=== PATIENT | female | born 1985 | race Caucasian/White ===

== ENCOUNTER 2022-06-17 01:30 | Inpatient (IN) ==
[2022-06-17] MEDS ORDERED: ONDANSETRON INJ 2 MG/ML 2 ML VIAL ONE (01:35)
[2022-06-17] MEDS ORDERED: SODIUM CHLORIDE 0.9% 1000ML 1,000 ML IV ONE (02:33)
[2022-06-17] MEDS ORDERED: PANTOprazole 40 MG in SYRINGE 0 ML IV ONE (02:33)
[2022-06-17] MEDS ORDERED: KETOROLAC 30 MG/ML VIAL IV ONE (02:33)
[2022-06-17 02:50] LABS: Basophils # (auto) 0.04 K/uL (0-0.2); Basophils % (auto) 0.7 %; Eosinophils # (auto) 0.03 K/uL (0-0.50); Eosinophils % (auto) 0.5 %; Hematocrit (blood only) 36.2 % (34.1-44.9); Hemoglobin 12.8 g/dl (12.0-16.0); Immature Granulocytes # (auto) 0.04 K/uL (0.00-0.02); Immature Granulocytes % (auto) 0.7 %; Lymphocytes # (auto) 0.87 K/uL (1.2-3.4); Lymphocytes % (auto) 15.1 %; Mean Corpuscular Hemoglobin 30.3 pg (25.0-34.0); Mean Corpuscular Hgb Conc 35.4 g/dL (32.0-36.0); Mean Corpuscular Volume 85.6 fL (80.0-100.0); Mean Platelet Volume 9.6 fL (9.4-12.3); Monocytes # (auto) 0.43 K/uL (0.24-0.82); Monocytes % (auto) 7.5 %; Neutrophils # (auto) 4.36 K/uL (1.4-6.5); Neutrophils % (auto) 75.5 %; Platelet Count 152 K/uL (130-400); RDW Coefficient of Variation 19.8 % (11.5-14.5); Red Blood Count 4.23 M/uL (3.93-5.22); White Blood Count 5.77 K/ul (4.8-10.8)
[2022-06-17 02:51] LABS: Appearance Urine Clear (Clear); Bilirubin Urine Negative (Negative); Blood Urine Negative (Negative); Color Urine Yellow; Glucose Urine UA Negative (Negative); Ketones Urine Negative (Negative); Leukocyte Esterase Urine Negative (Negative); Nitrite Urine Negative (Negative); Protein Urine Negative (Negative); Specific Gravity Urine 1.001 (1.000-1.030); Urobilinogen Urine Negative (Negative); pH Urine 5.5 (4.5-7.5)
[2022-06-17 03:06] LABS: Albumin Globulin Ratio 1.1 (0.9-2); Albumin Level 3.3 gm/dl (3.4-5.0); BUN Creatinine Ratio 6.8 (10-20); Bilirubin,Total 1.6 mg/dl (0.2-1.0); Calcium 8.7 mg/dl (8.5-10.1); Creatinine Clr Calc Pharmacy 182.3 ml/min; Est GFR (African American) 148.4 ml/min; Est GFR (Non-African American) 128.1 ml/min; Potassium 3.3 mmol/L (3.5-5.1); Total Protein 6.3 gm/dl (6.0-8.3)
[2022-06-17 03:26] LABS: Influenza A virus by PCR Negative (Neg); Influenza B virus by PCR Negative (Neg); RSV by PCR Negative (Neg); SARS CoV2 RNA(COVID-19) Ceph NEGATIVE (Negative)
[2022-06-17] MEDS ORDERED: LORazepam 1 MG TAB PO PRN ×3 (05:11)
[2022-06-17] MEDS ORDERED: Ativan PO Alcohol Withdrawal--Active Protocol PO PRN (05:11)
--- NOTE | 2022-06-17 05:28 | History & Physical Report ---
Date of Service June 17, 2022 Assessment & Plan (1) Weight loss, abnormal: Plan: Patient reports 15 pound weight loss over the past couple months Likely associated with tobacco abuse and alcohol abuse Will jenkins CT chest, abdomen and pelvis to look for other etiologies (2) Hematemesis: Plan: Patient reports coughing up fresh blood this morning N.p.o. Protonix 40mg IV daily twice daily Consult gastroenterology N.p.o. status (3) Abdominal pain, left lower quadrant: Plan: N.p.o. status Further assessment with CT scan abdomen and pelvis (4) Alcohol abuse: Plan: AWSS protocol (5) Hyponatremia: Plan: Sodium 123 upon admission Patient admits to 8 beers daily, but reports in addition to having excessive alcohol is also had excessive water intake Adding a serum osmolality and urine osmolality to laboratories in the ED Placed on NSS + KCl 20 mEq at 40 mils per hour Sodium chloride 1 tablet p.o. twice daily Consult nephrology (6) Pancreatitis: Plan: Lipase [address] abdomen pelvis Follow serial lipase (7) Tobacco abuse disorder: Plan: Tobacco cessation counseling Patient likely has an early bronchitis Albuterol HFA 2 puffs 4 times daily and every 2 hours as needed (8) Hypothyroid: Plan: Continue levothyroxine 112 mcg daily (9) Hypokalemia: Plan: KCl 10 mEq IV x2 Repeat laboratories in a.m. (10) Abnormal LFTs: Plan: Previous CT as noted severe hepatic steatosis and hepatomegaly Follow serial laboratories Adding coags to current laboratories Calculate meld score when all labs are back (11) Anxiety: History of Present Illness Chief Complaint: The patient presents to the emergency department complaining of left lower quadrant pain, decreased oral intake over the past week. She reports to call of the emergency department today because she brought up some blood when she vomited last time. She has not noticed any blood in her stool or urine. She admits to drinking 8 beers a day, and smokes 1 pack of cigarettes daily. She has a history of alcohol abuse. Primary Care Provider: Khadra Vallejo MD The patient is a 37-year-old female with a past medical history including tobacco abuse, alcohol abuse, allergic rhinitis, genital warts, hypothyroidism, anxiety and fatigue. She presents to the emergency department as noted above. She was seen at the emergency department on 05/15/2022 for similar symptoms of left lower quadrant pain, with work-up including a CT scan of the abdomen pelvis with IV contrast, which showed question of cystitis, severe hepatic steatosis, hepatomegaly, L5-S1 degenerative disc disease. She reports that she has been drinking large amounts of water because it helps to make her stomach feel somewhat better. She also reports a 15 pound weight loss over the past few months Significant abnormal laboratories: Sodium 123, potassium 3.3, glucose 105, hemoglobin 12.8, hematocrit 36.2, AST 318, ALT 132, alk phos 328, total bilirubin 1.6, lipase 211. Allergies Allergy/AdvReac Type Severity Reaction Status Date / Time adhesive Allergy Intermediate SKIN Verified 05/15/22 19:32 BLISTER, TORN OFF SKIN WHEN REMOVED Home Medications Medication Instructions Recorded Confirmed Type albuterol sulfate 90 mcg/actuation 2 inh inhalation Q4H PRN shortness 10/16/21 06/17/22 Rx aerosol inhaler of breath or wheezing #6.7 grams levothyroxine 112 mcg tablet 112 mcg PO DAILY #90 tabs 02/22/22 06/17/22 Rx ibuprofen 600 mg tablet 600 mg PO Q8H PRN Pain 05/15/22 06/17/22 History ondansetron 4 mg disintegrating 4 mg PO Q8H PRN nausea and 05/15/22 06/17/22 Rx tablet vomiting #30 tabs Past Med/Surg History Medical History (Updated 06/17/22 @ 05:44 by Edgar Hopkins MD) Anxiety Fatigue H/O ETOH abuse Hypothyroid Thyroid condition Tobacco abuse disorder Surgical History No pertinent past surgical history Family History Father Heart disease Colorectal cancer Myocardial infarction Denies family history of Ovarian cancer Prostate cancer Breast cancer Social History Smoking Status: Current every day smoker Tobacco Type: Cigarettes packs per day: 1; Hx Alcohol Use: Yes Hx Substance Use: No Preferred Language: [place] Visual Impairment: No Limitations Hearing Ability: Normal 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 Beliefs That Will Affect Care: None marital status: Single Current Living Situation: Significant Other current occupational status: employed Feels Safe at Home: Yes Diet Comment: regular caffeine: Yes during the past year weight has: remained stable Dental Care, Regularly: No Physical Activity Frequency: 5-6 Times per Week Physical Activity Frequency Comment: active job Seatbelt Use: always Sunscreen Use: Yes Review of Systems Review of Systems: The patient denies chest pain, palpitations, lower extremity swelling, fevers, chills, sweats, blood in urine or stool, dysuria, urinary frequency or urgency, lightheadedness, dizziness, headache, memory loss, loss of consciousness, rash, Imbalance, focal weakness, numbness or tingling in arms or legs, generalized arthralgias or myalgias, back or neck pain, or night sweats. The review of systems is otherwise negative other than for that already noted above, and at least 10 systems have been reviewed. Physical Exam Physical Exam: The patient is awake, alert and oriented 3, normocephalic and atraumatic, lying in bed and in no acute distress. HEENT--PERRL, EOMI, mucous membranes and oropharynx dry. Neck--supple. No JVD. No bruits. Thyroid normal, trachea midline, no adenopathy. Heart--normal S1 and S2. No murmurs, rubs or gallops. Lungs--coarse breath sounds with wheezes bilaterally. No respiratory distress, no accessory muscle use. Abdomen--normal bowel sounds and soft. Extremities--no cyanosis or clubbing. No edema. There are good distal pulses b/l. Dermatologic--normal skin turgor, normal color, no abnormal lymph nodes, no rash. Neurologic--cranial nerves II through XII grossly intact. Rheumatologic--normal range of motion. Psychiatric--normal affect. Results & Data Results & Data ([facility] [place]) Vital Signs (Past 12 Hours) Vital Signs Temp Pulse Pulse Resp BP BP Pulse Ox 06/17/22 03:37 88 22 104/59 L 96 06/17/22 01:38 36.7 C 82 24 126/78 97 O2 Del Method 06/17/22 03:37 Room Air 06/17/22 01:38 Room Air Laboratory Results Laboratory Results WBC 5.77 K/ul (4.8-10.8) 06/17/22 01:45 RBC 4.23 M/uL (3.93-5.22) 06/17/22 01:45 Hgb 12.8 g/dl (12.0-16.0) 06/17/22 01:45 Hct 36.2 % (34.1-44.9) 06/17/22 01:45 MCV 85.6 fL (80.0-100.0) 06/17/22 01:45 MCH 30.3 pg (25.0-34.0) 06/17/22 01:45 MCHC 35.4 g/dL (32.0-36.0) 06/17/22 01:45 RDW Std Deviation 62.0 fL (36.4-46.3) H 06/17/22 01:45 RDW Coeff of Nico 19.8 % (11.5-14.5) H 06/17/22 01:45 Plt Count 152 K/uL (130-400) 06/17/22 01:45 MPV 9.6 fL (9.4-12.3) 06/17/22 01:45 Immature Gran % (Auto) 0.7 % 06/17/22 01:45 Neut % (Auto) 75.5 % 06/17/22 01:45 Lymph % (Auto) 15.1 % 06/17/22 01:45 [place]away % (Auto) 7.5 % 06/17/22 01:45 Eos % (Auto) 0.5 % 06/17/22 01:45 Baso % (Auto) 0.7 % 06/17/22 01:45 Neut # (Auto) 4.36 K/uL (1.4-6.5) 06/17/22 01:45 Lymph # (Auto) 0.87 K/uL (1.2-3.4) L 06/17/22 01:45 Callaway # (Auto) 0.43 K/uL (0.24-0.82) 06/17/22 01:45 Eos # (Auto) 0.03 K/uL (0-0.50) 06/17/22 01:45 Baso # (Auto) 0.04 K/uL (0-0.2) 06/17/22 01:45 Immature Gran # (Auto) 0.04 K/uL (0.00-0.02) H 06/17/22 01:45 Sodium 123 mmol/L (136-145) L 06/17/22 01:45 Potassium 3.3 mmol/L (3.5-5.1) L 06/17/22 01:45 Chloride 88 mmol/L (98-107) L 06/17/22 01:45 Carbon Dioxide 20 mmol/L (21-32) L 06/17/22 01:45 Anion Gap 15 (3-11) H 06/17/22 01:45 BUN 3 mg/dl (6-23) L 06/17/22 01:45 Creatinine 0.44 mg/dl (0.6-1.2) L 06/17/22 01:45 Est Cr Clr Drug Dosing 182.3 ml/min 06/17/22 01:45 Est GFR ( Amer) 148.4 ml/min 06/17/22 01:45 Est GFR (Non-Af Amer) 128.1 ml/min 06/17/22 01:45 BUN/Creatinine Ratio 6.8 (10-20) L 06/17/22 01:45 Glucose 105 mg/dl (70-99(Fasting)) H 06/17/22 01:45 Calcium 8.7 mg/dl (8.5-10.1) 06/17/22 01:45 Total Bilirubin 1.6 mg/dl (0.2-1.0) H 06/17/22 01:45 AST 318 U/L (13-39) H 06/17/22 01:45 ALT 132 U/L (7-52) H 06/17/22 01:45 Alkaline Phosphatase 328 U/L (34-104) H 06/17/22 01:45 Total Protein 6.3 gm/dl (6.0-8.3) 06/17/22 01:45 Albumin 3.3 gm/dl (3.4-5.0) L 06/17/22 01:45 Globulin 3.0 gm/dl (2.5-4.0) 06/17/22 01:45 Albumin/Globulin Ratio 1.1 (0.9-2) 06/17/22 01:45 Lipase 211 U/L (11-82) H 06/17/22 01:45 TSH 1.926 uIu/ml (0.300-4.500) 06/17/22 01:45 Urine Color Yellow 06/17/22 02:40 Urine Appearance Clear (Clear) 06/17/22 02:40 Urine pH 5.5 (4.5-7.5) 06/17/22 02:40 Ur Specific Drury 1.001 (1.000-1.030) 06/17/22 02:40 Urine Protein Negative (Negative) 06/17/22 02:40 Urine Glucose (UA) Negative (Negative) 06/17/22 02:40 Urine Ketones Negative (Negative) 06/17/22 02:40 Urine Blood Negative (Negative) 06/17/22 02:40 Urine Nitrite Negative (Negative) 06/17/22 02:40 Urine Bilirubin Negative (Negative) 06/17/22 02:40 Urine Urobilinogen Negative (Negative) 06/17/22 02:40 Ur Leukocyte Esterase Negative (Negative) 06/17/22 02:40 Ethyl Alcohol mg/dL 23.4 mg/dl (<10.0) H 06/17/22 01:45 SARS-CoV-2 (PCR) NEGATIVE (Negative) 06/17/22 02:40 Influenza Type A (PCR) Negative (Neg) 06/17/22 02:40 Influenza Type B (PCR) Negative (Neg) 06/17/22 02:40 RSV (RT-PCR) Negative (Neg) 06/17/22 02:40 Code Status & VTE Plan Code Status Full code VTE Prophylaxis Plan VTE Prophylaxis will be ordered: Yes (1) Hypothyroid Hypothyroidism type: unspecified Qualified Code(s): E03.9 - Hypothyroidism, unspecified
--- NOTE | 2022-06-17 05:49 | Billing Data ---
Date of Service June 17, 2022 Coding Level of Care Code 77462 Initial Inpt Care Lvl 3
[2022-06-17] MEDS ORDERED: POTASSIUM CHLORIDE / WTR 10 MEQ/100 ML PLCT IV ONE (05:52)
[2022-06-17] MEDS ORDERED: ALBUTEROL HFA 8 GM INHALER INH PRN (05:56)
[2022-06-17 05:59] LABS: INR 1.1 (0.9-1.1); Partial Thromboplastin Ratio 1.2; Partial Thromboplastin Time 33.3 Seconds (21.0-31.0); Prothrombin Time 11.5 Seconds (9.0-12.0)
[2022-06-17] MEDS ORDERED: NSS + 20MEQ KCL 20 MEQ/1,000 ML BAG IV SCH (06:15)
[2022-06-17 06:59] LABS: BUN Creatinine Ratio 5.7 (10-20); Calcium 8.7 mg/dl (8.5-10.1); Creatinine Clr Calc Pharmacy 151.3 ml/min; Est GFR (African American) 139.6 ml/min; Est GFR (Non-African American) 120.4 ml/min; Potassium 3.6 mmol/L (3.5-5.1)
--- NOTE | 2022-06-17 07:14 | CT Scan Report ---
CT OF THE CHEST WITHOUT IV CONTRAST CLINICAL HISTORY: hypoxia, weight loss COMPARISON STUDY: Chest radiograph January 23, 2022. TECHNIQUE: Axial images of the chest were obtained without IV contrast. Images were reviewed in the axial, sagittal, and coronal planes. IV contrast was not administered for this examination. Automat ed exposure control was utilized for the study. A dose lowering technique was utilized adhering to t he principles of ALARA. FINDINGS: No enlarged axillary, mediastinal or hilar lymph nodes are present. The size of the heart is normal. There is no pericardial effusion. No pneumothorax or pleural effusion is present. There is mild multifocal mucus plugging within the lungs. An 8 mm groundglass nodular opacity within the left lower lobe on image 220 of 296 is noted. There is minimal groundglass opacity within the right middl e lobe. No consolidation is identified. Bony thorax is unremarkable. Hepatic steatosis is noted. The CT of the abdomen and pelvis will be reported separately. IMPRESSION: 1. No consolidation. 2. 8 mm groundglass nodular opacity within the left lower lobe and minimal ground glass opacity withi n the right middle lobe. This likely reflects atelectasis. An infectious process could appear similar although is considered less likely. A follow-up chest CT in 3 months to ensure resolution is recomme nded. 3. Mild mucus plugging within the lungs. 4. Hepatic steatosis. ACT 112: Negative or not required by law. Electronically signed by: Jose Alfredo Smith M.D. 06/17/2022 7:12 AM
--- NOTE | 2022-06-17 07:19 | CT Scan Report ---
CT SCAN OF THE ABDOMEN AND PELVIS WITHOUT IV CONTRAST CLINICAL HISTORY: Left lower quadrant abdominal pain. Weight loss. COMPARISON STUDY: Abdominal CT dated 05/15/2022. TECHNIQUE: CT scan of the abdomen and pelvis is performed from the lung bases to the proximal femora. Images are reviewed in the axial, sagittal, and coronal planes. IV contrast was not administered for this examination as per the referring clinician. Note that the examination was performed in signific antly suboptimal fashion without oral and IV contrast. A dose lowering technique was utilized adherin g to the principles of ALARA. CT DOSE: 470.37 mGy.cm FINDINGS: Lung bases: The heart is normal in size and without pericardial effusion. The lung bases are clear. Liver: The unenhanced liver is enlarged, measuring 21.2 cm in length. The liver demonstrates diffusel y diminished attenuation indicating severe steatosis. There is no intrahepatic biliary ductal dilatat ion. Gallbladder: Surgically absent and clips in the gallbladder fossa. Spleen: Normal in size and attenuation. Pancreas: Unremarkable. Adrenal glands: Unremarkable. Kidneys: The unenhanced kidneys are normal in size and without hydronephrosis. There are no renal raudel culi identified. There is no evidence of contour deforming renal mass lesion. A retroaortic left jhony l vein is incidentally noted. Abdominal vasculature: The abdominal aorta is normal in course and caliber noting mild to moderate at herosclerotic calcification. Bowel: Submucosal fat deposition is seen throughout the colon. This is nonspecific but has been descr ibed in the setting of chronic inflammation. There is mild wall thickening of the distal descending c olon and proximal sigmoid. No bowel obstruction is seen. The appendix is well-visualized and normal. Peritoneum: There is no intraperitoneal free air or abdominal ascites. There is a fat-containing umbi lical hernia. Lymphadenopathy: None. Pelvic viscera: The bladder wall appears thickened. The uterus and adnexa are normal as visualized. Skeletal structures: No lytic or blastic lesions are seen. IMPRESSION: 1. Suboptimal examination without oral and IV contrast. 2. The bladder wall appears thickened. Correlate with clinical findings and urinalysis. 3. Question mild wall thickening of the distal left colon. Correlate clinically for evidence of a non specific colitis. 4. Hepatomegaly and severe steatosis. 5. Additional findings as above. ACT 112: Negative or not required by law. Electronically signed by: Trey Dhaliwal M.D. 06/17/2022 7:18 AM
--- NOTE | 2022-06-17 07:32 | Emergency Department Note ---
Impression & Plan Acute hyponatremia, Acute epigastric pain Admit to the [facility] ED Provider Note NAME: AZALEA COBOS AGE: 37 SEX: F ARRIVES VIA: Ambulance INFORMANT: Patient ED PROVIDER(S): Katie Michaud DO CHIEF COMPLAINT: Epigastric pain PLAN: Disposition: Admit to the [facility] Condition: Guarded MEDICAL DECISION MAKING: This is a 37-year-old female patient with an extensive past medical history including alcohol abuse who presents to the emergency department complaining of severe epigastric pain, headache, vomiting and diarrhea. Patient describes that her epigastric pain has been worsening over the past couple weeks. She has been having vomiting and diarrhea that has worsened over the past 2 days. She drank 4 L of water today believing that she was dehydrated. She was found to be significantly hyponatremic most likely secondary to the water intake. EMS administered Zofran to the patient in route to the hospital. She has had no further vomiting here in the emergency department. [facility] for [facility] management. Triage Nursing notes reviewed and agree with them. Prior medical records reviewed Vital Signs: reviewed and unremarkable Differential diagnosis: Ulcerative disease, alcohol gastritis, GI bleeding, electrolyte abnormality, GERD, dehydration, alcohol intoxication, alcohol withdrawal ER treatment provided: IV Protonix IV normal saline Diagnostics interpreted by me: Cardiac Monitoring: Normal sinus rhythm at a rate of 88 Laboratory studies: See below HPI: 37/F arrives for evaluation of epigastric pain and weakness. This is a 37-year-old female patient who presents to the emergency department with worsening epigastric pain that she rates as an 8/10. Patient has had episodes of vomiting and diarrhea and believes that she might be dehydrated. She told nursing staff that she drank a total of 4 L of water because she felt she was dehydrated. She does describe extreme weakness and blurry vision. Patient also complains of a sore throat and headache. ROS: See above HPI for pertinent positives & negatives. A total of 10 systems reviewed and were otherwise negative. PAST MEDICAL HISTORY:See Below PAST SURGICAL HISTORY:See Below FAMILY HISTORY:See Below SOCIAL HISTORY:See Below HOME MEDICATIONS:See list ALLERGIES:See list VITALS:See Below PHYSICAL EXAMINATION: HEENT: Head - normocephalic and atraumatic Pupils are equal, round, and reactive to light. Extraocular eye muscles are intact, and sclera are anicteric. Nose - moist nasal mucosa without discharge. Mouth -extremely dry buccal mucosa. The patient is adentulous. Oropharynx is nonerythematous and there is no tonsillar exudate or edema noted. Neck: Supple; no cervical lymphadenopathy. Heart: Regular rate and rhythm. There is a normal S1 and S2 with no murmurs, clicks, or gallops appreciated. Lungs: Clear to auscultation bilaterally with no wheezes, rales, or rhonchi. Abdomen: Exquisitely tender to palpation in the epigastrium with good bowel sounds. Abdomen is slightly distended. There are no palpable pulsatile masses or hepatosplenomegaly. There is no guarding, rigidity, or rebound noted. Extremities: No evidence of cyanosis, clubbing, or edema. There are easily palp able peripheral pulses. Skin: warm and dry with good turgor and no rashes. ED COURSE: Times/Reassessments: 215: Patient was evaluated in room A-3. A complete history and physical was performed. Previous electronic medical records were reviewed. Order was placed for continuous cardiac monitoring. The patient was in a normal sinus rhythm at a rate of 88. An IV lock was initiated and labs are drawn as above. The patient was bolused with IV normal saline solution and given a dose of IV Protonix. I discussed the case with [facility]ist and they will evaluate for further management. Katie Michaud DO Past Med/Surg History Medical History Anxiety Fatigue H/O ETOH abuse Hypothyroid Thyroid condition Tobacco abuse disorder Surgical History No pertinent past surgical history Family History Father Heart disease Colorectal cancer Myocardial infarction Denies family history of Ovarian cancer Prostate cancer Breast cancer Social History Smoking Status: Current every day smoker Tobacco Type: Cigarettes packs per day: 1; Cigarettes Per Day: 20; Second Hand Exposure: No; Do You Dip or Chew Tobacco: No; Tobacco Cessation Education Requested by Patient: No Hx Alcohol Use: Yes Alcohol type: beer Hx Substance Use: Yes Last Used Substance: Unknown Preferred Language: Japanese Communication Ability: Effective Visual Impairment: No Limitations Hearing Ability: Normal Production Support Engineer Required: No Beliefs That Will Affect Care: None marital status: Single Current Living Situation: Alone current occupational status: employed Other Information That Helps Us Care for You: No Feels Safe at Home: Yes Diet Comment: regular caffeine: Yes during the past year weight has: remained stable Dental Care, Regularly: No Physical Activity Frequency: 5-6 Times per Week Physical Activity Frequency Comment: active job Seatbelt Use: always Sunscreen Use: Yes Assistive Devices: Glasses Allergies Allergies Allergy/AdvReac Type Severity Reaction Status Date / Time adhesive Allergy Intermediate SKIN Verified 05/15/22 19:32 BLISTER, TORN OFF SKIN WHEN REMOVED Home Meds Home Medications Medication Instructions Recorded Confirmed ibuprofen 600 mg tablet 600 mg PO Q8H PRN Pain 05/15/22 06/17/22 Previous Rx's Medication Instructions Recorded albuterol sulfate 90 mcg/actuation 2 inh inhalation Q4H PRN shortness 10/16/21 aerosol inhaler of breath or wheezing #6.7 grams levothyroxine 112 mcg tablet 112 mcg PO DAILY #90 tabs 02/22/22 ondansetron 4 mg disintegrating 4 mg PO Q8H PRN nausea and 05/15/22 tablet vomiting #30 tabs Results & Data (ED) Vital Signs Vital Signs - 24 hr 06/17/22 01:38 06/17/22 03:37 Temperature 36.7 C Temperature Source Oral Pulse Rate 82 Pulse Rate [Apical] 88 Respiratory Rate 24 22 Blood Pressure 126/78 Blood Pressure [Left Arm] 104/59 L Blood Pressure Mean 94 Blood Pressure Mean [Left Arm] 74 Pulse Oximetry 97 96 Oxygen Delivery Method Room Air Room Air Sepsis Recent Fever Within 48 Hours No Sepsis New/Unexplained Change in Mental Status No Sepsis Action Taken by Nursing No Action Required Laboratory Data Result diagrams: 06/17/22 01:45 06/17/22 11:19 Lab Results 06/17/22 06/17/22 06/17/22 Range/Units 01:45 01:45 01:45 WBC 5.77 (4.8-10.8) K/ul RBC 4.23 (3.93-5.22) M/uL Hgb 12.8 (12.0-16.0) g/dl Hct 36.2 (34.1-44.9) % MCV 85.6 (80.0-100.0) fL MCH 30.3 (25.0-34.0) pg MCHC 35.4 (32.0-36.0) g/dL RDW Std Deviation 62.0 H (36.4-46.3) fL RDW Coeff of Nico 19.8 H (11.5-14.5) % Plt Count 152 (130-400) K/uL MPV 9.6 (9.4-12.3) fL Immature Gran % (Auto) 0.7 % Neut % (Auto) 75.5 % Lymph % (Auto) 15.1 % [place] % (Auto) 7.5 % Eos % (Auto) 0.5 % Baso % (Auto) 0.7 % Neut # (Auto) 4.36 (1.4-6.5) K/uL Lymph # (Auto) 0.87 L (1.2-3.4) K/uL [place] # (Auto) 0.43 (0.24-0.82) K/uL Eos # (Auto) 0.03 (0-0.50) K/uL Baso # (Auto) 0.04 (0-0.2) K/uL Immature Gran # (Auto) 0.04 H (0.00-0.02) K/uL PT (9.0-12.0) Seconds INR (0.9-1.1) APTT (21.0-31.0) Seconds PTT Ratio Sodium 123 L (136-145) mmol/L Potassium 3.3 L (3.5-5.1) mmol/L Chloride 88 L (98-107) mmol/L Carbon Dioxide 20 L (21-32) mmol/L Anion Gap 15 H (3-11) BUN 3 L (6-23) mg/dl Creatinine 0.44 L (0.6-1.2) mg/dl Est Cr Clr Drug Dosing 182.3 ml/min Est GFR ( Amer) 148.4 ml/min Est GFR (Non-Af Amer) 128.1 ml/min BUN/Creatinine Ratio 6.8 L (10-20) Glucose 105 H (70-99(Fasting)) mg/dl Osmolality (280-300) mOsm/kg Calcium 8.7 (8.5-10.1) mg/dl Total Bilirubin 1.6 H (0.2-1.0) mg/dl AST 318 H (13-39) U/L ALT 132 H (7-52) U/L Alkaline Phosphatase 328 H (34-104) U/L Total Protein 6.3 (6.0-8.3) gm/dl Albumin 3.3 L (3.4-5.0) gm/dl Globulin 3.0 (2.5-4.0) gm/dl Albumin/Globulin Ratio 1.1 (0.9-2) Lipase 211 H (11-82) U/L TSH 1.926 (0.300-4.500) uIu/ml Urine Color Urine Appearance (Clear) Urine pH (4.5-7.5) Ur Specific [place] (1.000-1.030) Urine Protein (Negative) Urine Glucose (UA) (Negative) Urine Ketones (Negative) Urine Blood (Negative) Urine Nitrite (Negative) Urine Bilirubin (Negative) Urine Urobilinogen (Negative) Ur Leukocyte Esterase (Negative) Urine Osmolality (500-800) mOsm/kg Ethyl Alcohol mg/dL (<10.0) mg/dl SARS-CoV-2 (PCR) (Negative) Influenza Type A (PCR) (Neg) Influenza Type B (PCR) (Neg) RSV (RT-PCR) (Neg) 06/17/22 06/17/22 06/17/22 Range/Units 01:45 01:45 01:45 WBC (4.8-10.8) K/ul RBC (3.93-5.22) M/uL Hgb (12.0-16.0) g/dl Hct (34.1-44.9) % MCV (80.0-100.0) fL MCH (25.0-34.0) pg MCHC (32.0-36.0) g/dL RDW Std Deviation (36.4-46.3) fL RDW Coeff of Nico (11.5-14.5) % Plt Count (130-400) K/uL MPV (9.4-12.3) fL Immature Gran % (Auto) % Neut % (Auto) % Lymph % (Auto) % [place] % (Auto) % Eos % (Auto) % Baso % (Auto) % Neut # (Auto) (1.4-6.5) K/uL Lymph # (Auto) (1.2-3.4) K/uL [place] # (Auto) (0.24-0.82) K/uL Eos # (Auto) (0-0.50) K/uL Baso # (Auto) (0-0.2) K/uL Immature Gran # (Auto) (0.00-0.02) K/uL PT 11.5 (9.0-12.0) Seconds INR 1.1 (0.9-1.1) APTT 33.3 H (21.0-31.0) Seconds PTT Ratio 1.2 Sodium (136-145) mmol/L Potassium (3.5-5.1) mmol/L Chloride (98-107) mmol/L Carbon Dioxide (21-32) mmol/L Anion Gap (3-11) BUN (6-23) mg/dl Creatinine (0.6-1.2) mg/dl Est Cr Clr Drug Dosing ml/min Est GFR ( Amer) ml/min Est GFR (Non-Af Amer) ml/min BUN/Creatinine Ratio (10-20) Glucose (70-99(Fasting)) mg/dl Osmolality 259 L (280-300) mOsm/kg Calcium (8.5-10.1) mg/dl Total Bilirubin (0.2-1.0) mg/dl AST (13-39) U/L ALT (7-52) U/L Alkaline Phosphatase (34-104) U/L Total Protein (6.0-8.3) gm/dl Albumin (3.4-5.0) gm/dl Globulin (2.5-4.0) gm/dl Albumin/Globulin Ratio (0.9-2) Lipase (11-82) U/L TSH (0.300-4.500) uIu/ml Urine Color Urine Appearance (Clear) Urine pH (4.5-7.5) Ur Specific [place] (1.000-1.030) Urine Protein (Negative) Urine Glucose (UA) (Negative) Urine Ketones (Negative) Urine Blood (Negative) Urine Nitrite (Negative) Urine Bilirubin (Negative) Urine Urobilinogen (Negative) Ur Leukocyte Esterase (Negative) Urine Osmolality (500-800) mOsm/kg Ethyl Alcohol mg/dL 23.4 H (<10.0) mg/dl SARS-CoV-2 (PCR) (Negative) Influenza Type A (PCR) (Neg) Influenza Type B (PCR) (Neg) RSV (RT-PCR) (Neg) 06/17/22 06/17/22 06/17/22 Range/Units 02:40 02:40 02:40 WBC (4.8-10.8) K/ul RBC (3.93-5.22) M/uL Hgb (12.0-16.0) g/dl Hct (34.1-44.9) % MCV (80.0-100.0) fL MCH (25.0-34.0) pg MCHC (32.0-36.0) g/dL RDW Std Deviation (36.4-46.3) fL RDW Coeff of Nico (11.5-14.5) % Plt Count (130-400) K/uL MPV (9.4-12.3) fL Immature Gran % (Auto) % Neut % (Auto) % Lymph % (Auto) % [place] % (Auto) % Eos % (Auto) % Baso % (Auto) % Neut # (Auto) (1.4-6.5) K/uL Lymph # (Auto) (1.2-3.4) K/uL [place] # (Auto) (0.24-0.82) K/uL Eos # (Auto) (0-0.50) K/uL Baso # (Auto) (0-0.2) K/uL Immature Gran # (Auto) (0.00-0.02) K/uL PT (9.0-12.0) Seconds INR (0.9-1.1) APTT (21.0-31.0) Seconds PTT Ratio Sodium (136-145) mmol/L Potassium (3.5-5.1) mmol/L Chloride (98-107) mmol/L Carbon Dioxide (21-32) mmol/L Anion Gap (3-11) BUN (6-23) mg/dl Creatinine (0.6-1.2) mg/dl Est Cr Clr Drug Dosing ml/min Est GFR ( Amer) ml/min Est GFR (Non-Af Amer) ml/min BUN/Creatinine Ratio (10-20) Glucose (70-99(Fasting)) mg/dl Osmolality (280-300) mOsm/kg Calcium (8.5-10.1) mg/dl Total Bilirubin (0.2-1.0) mg/dl AST (13-39) U/L ALT (7-52) U/L Alkaline Phosphatase (34-104) U/L Total Protein (6.0-8.3) gm/dl Albumin (3.4-5.0) gm/dl Globulin (2.5-4.0) gm/dl Albumin/Globulin Ratio (0.9-2) Lipase (11-82) U/L TSH (0.300-4.500) uIu/ml Urine Color Yellow Urine Appearance Clear (Clear) Urine pH 5.5 (4.5-7.5) Ur Specific [place] 1.001 (1.000-1.030) Urine Protein Negative (Negative) Urine Glucose (UA) Negative (Negative) Urine Ketones Negative (Negative) Urine Blood Negative (Negative) Urine Nitrite Negative (Negative) Urine Bilirubin Negative (Negative) Urine Urobilinogen Negative (Negative) Ur Leukocyte Esterase Negative (Negative) Urine Osmolality 41 L (500-800) mOsm/kg Ethyl Alcohol mg/dL (<10.0) mg/dl SARS-CoV-2 (PCR) NEGATIVE (Negative) Influenza Type A (PCR) Negative (Neg) Influenza Type B (PCR) Negative (Neg) RSV (RT-PCR) Negative (Neg) Administered Medications Albuterol (Albuterol Hfa 8 Gm Inhaler) 2 puffs INH QIDR [facility] Stop: 07/17/22 06:59 Last Admin: 06/17/22 11:57 Dose: 2 puffs Documented By: Admin: 06/17/22 08:10 Dose: 2 puffs Documented By: GENNY Thiamine HCl 100 mg/ Syringe 10 mls @ 2 mls[facility] [place] Stop: 07/17/22 08:59 Last Admin: 06/17/22 09:39 Dose: 2 mls/min Documented By: JEZ Folic Acid 1 mg/ Syringe 10 mls @ 5 mls/min IV QAM [facility] Stop: 07/17/22 08:59 Last Admin: 06/17/22 09:38 Dose: 5 mls/min Documented By: JEZ Pantoprazole Sodium 40 mg/ (Syringe) 10 mls @ 5 mls/min IV BID JO Stop: 07/17/22 08:59 Last Admin: 06/17/22 09:39 Dose: 5 mls/min Documented By: JEZ Levothyroxine Sodium (Levothyroxine Sodium 112 Mcg Tablet) 112 mcg PO DAILYBB JO Stop: 07/17/22 06:29 Last Admin: 06/17/22 07:56 Dose: 112 mcg Documented By: NOMI Discontinued Medications Sodium Chloride (Nss 1000ml) 1,000 mls @ 999 mls/hr IV .Q1H1M ONE Stop: 06/17/22 03:33 Last Infusion: 06/17/22 03:39 Dose: 0 mls/hr Documented By: Admin: 06/17/22 02:38 Dose: 999 mls/hr Documented By: JOAQUINA Pantoprazole Sodium 40 mg/ (Syringe) 10 mls @ 5 mls/min IV NOW ONE Stop: 06/17/22 02:34 Last Admin: 06/17/22 02:54 Dose: 5 mls/min Documented By: JOAQUINA Potassium Chloride/Sodium Chloride (Normal Saline W/20 Meq Kcl) 20 meq in 1,000 mls @ 40 mls/hr IV .Q24H JO Stop: 07/17/22 06:14 Last Admin: 06/17/22 07:56 Dose: 40 mls/hr Documented By: NOMI Potassium Chloride (K Los / Wtr) 10 meq in 100 mls @ 100 mls/hr IV ONE ONE Stop: 06/17/22 06:51 Last Infusion: 06/17/22 07:56 Dose: 0 mls/hr Documented By: Admin: 06/17/22 06:16 Dose: 100 mls/hr Documented By: JOAQUINA Ketorolac Tromethamine (Ketorolac 30 Mg/Ml Vial) 30 mg IV NOW ONE Stop: 06/17/22 02:34 Last Admin: 06/17/22 02:38 Dose: 30 mg Documented By: JOAQUINA Ondansetron HCl (Ondansetron Inj 2 Mg/Ml 2 Ml Vial) Confirm Administered Dose 4 mg .ROUTE .STK-MED ONE Stop: 06/17/22 01:36 Last Admin: 06/17/22 02:00 Dose: Not Given Documented By: DP Sodium Chloride (Sodium Chloride 1 Gm Tablet) 1 gm PO BID JO Stop: 07/17/22 08:59 Last Admin: 06/17/22 09:51 Dose: Not Given Documented By: JEZ Discharge Plan Visit Data Chief Complaint: Abdominal Pain Stated Complaint: EPIGASTRIC PAIN ED Provider: Katie Michaud Discharge Problem: Acute hyponatremia, Acute epigastric pain Discharge Instructions Interventions: ED Discharge Assessment Last Done: 06/17/22 05:53
[2022-06-17] MEDS: LEVOTHYROXINE SODIUM 112 MCG TABLET PO SCH (07:56)
[2022-06-17] MEDS: ALBUTEROL HFA 8 GM INHALER INH SCH ×4 (08:10→17:50)
[2022-06-17] MEDS ORDERED: THIAMINE HCL 100 MG in SYRINGE 9 ML IV SCH (09:00)
[2022-06-17] MEDS ORDERED: SODIUM CHLORIDE 1 GM TABLET PO SCH (09:00)
[2022-06-17] MEDS: FOLIC ACID 1 MG in SYRINGE 9.8 ML IV SCH (09:38)
[2022-06-17] MEDS: PANTOprazole 40 MG in SYRINGE 0 ML IV SCH ×2 (09:39→20:23)
[2022-06-17 11:58] LABS: BUN Creatinine Ratio 5.6 (10-20); Calcium 8.6 mg/dl (8.5-10.1); Creatinine Clr Calc Pharmacy 148.5 ml/min; Est GFR (African American) 138.7 ml/min; Est GFR (Non-African American) 119.7 ml/min; Potassium 3.6 mmol/L (3.5-5.1)
--- NOTE | 2022-06-17 12:36 | Nephrology Consultation ---
Date of Consultation June 17, 2022 Assessment & Plan (1) Chronic hyponatremia: (2) Pancreatitis: (3) Hypokalemia: (4) Alcohol abuse: Plan Chronic hyponatremia. Denies symptoms. Euvolemic. Clinical presentation consistent with photomania. Tolerating IVF well. Uosm suggest autocorrection. Stop oral NaCl. Document strict I/O's. Q4 hr BMP. Check magnesium and PO4 with next labs. Importance of abstaining from ETOH discussed. Remains NPO for suspected pancreatitis. Will follow. History of Present Illness Reason for Consultation: Hyponatremia Requesting Physician: Chris Champion Attending Physician: Chris Champion History of Present Illness Ameena Mckeon is a 37 year-old female with a history of alcohol abuse who presents to [facility] with watery diarrhea and LUQ pain. Evaluation notable for evidence of acute pancreatitis and chronic hyponatremia. History consistent with photomania. Ameena was found to be volume depleted with hypokalemia on presentation. She is receiving IV NSS+KCl. Serum potassium is improving. She continues to report some abdominal pain. Serum creatinine has been normal. She is non-oliguric. She is treated for hypothyroidism with levothyroxine. BP normotensive. PO intake poor. No fluid retention or edema. No NSAID use. Urine osmolality 41. Serum sodium 123 mmol/L has improved to 127 mmol/L. In additional to IVF, oral NaCl was provided overnight. Allergies Allergy/AdvReac Type Severity Reaction Status Date / Time adhesive Allergy Intermediate SKIN Verified 05/15/22 19:32 BLISTER, TORN OFF SKIN WHEN REMOVED Home Medications Medication Instructions Recorded Confirmed Type albuterol sulfate 90 mcg/actuation 2 inh inhalation Q4H PRN shortness 10/16/21 06/17/22 Rx aerosol inhaler of breath or wheezing #6.7 grams levothyroxine 112 mcg tablet 112 mcg PO DAILY #90 tabs 02/22/22 06/17/22 Rx ibuprofen 600 mg tablet 600 mg PO Q8H PRN Pain 05/15/22 06/17/22 History ondansetron 4 mg disintegrating 4 mg PO Q8H PRN nausea and 05/15/22 06/17/22 Rx tablet vomiting #30 tabs Patient History Medical History Anxiety Fatigue H/O ETOH abuse Hypothyroid Thyroid condition Tobacco abuse disorder Surgical History No pertinent past surgical history Family History Father Heart disease Colorectal cancer Myocardial infarction Denies family history of Ovarian cancer Prostate cancer Breast cancer Social History Smoking Status: Current every day smoker Tobacco Type: Cigarettes packs per day: 1; Cigarettes Per Day: 20; Second Hand Exposure: No; Do You Dip or Chew Tobacco: No; Tobacco Cessation Education Requested by Patient: No Hx Alcohol Use: Yes Alcohol type: beer Hx Substance Use: Yes Last Used Substance: Unknown Preferred Language: Yi Communication Ability: Effective Visual Impairment: No Limitations Hearing Ability: Normal 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 Beliefs That Will Affect Care: None marital status: Single Current Living Situation: Alone current occupational status: employed Other Information That Helps Us Care for You: No Feels Safe at Home: Yes Diet Comment: regular caffeine: Yes during the past year weight has: remained stable Dental Care, Regularly: No Physical Activity Frequency: 5-6 Times per Week Physical Activity Frequency Comment: active job Seatbelt Use: always Sunscreen Use: Yes Assistive Devices: Glasses Review of Systems Review of Systems: All systems reviewed & are unremarkable except as noted in HPI & below Physical Exam Constitutional: well developed; no acute distress Eyes: no scleral abnormality and no corneal abnormality ENMT: Mouth: no oral mucosal abnormality and oral mucous membranes not dry Neck: normal visual inspection and trachea midline Respiratory: normal respiratory effort Auscultation: lungs clear to auscul tation bilaterally Cardiovascular: Rate/Rhythm: regular rate Heart Sounds: normal S1 and normal S2 Extremities: no edema Gastrointestinal (Abdomen): Inspection/Auscultation: normal bowel sounds Percussion/Palpation: + abdomen tender and abdomen soft; no guarding Musculoskeletal: Extremities: no cyanosis and no clubbing Skin: normal turgor; no lesions Neurologic: Motor/Sensory: no tremor and no asterixis Psychiatric: Orientation: alert and oriented x 3 Results & Data ([facility]) Vital Signs (Past 12 Hours) Vital Signs Temp Pulse Pulse Resp BP BP Pulse Ox 06/17/22 11:59 86 18 98 06/17/22 09:45 06/17/22 09:44 100 H 16 124/71 96 06/17/22 09:44 06/17/22 08:17 36.9 C 100 H 20 112/63 98 06/17/22 08:11 86 18 96 06/17/22 07:54 36.9 C 98 H 20 102/68 97 06/17/22 06:16 87 15 105/74 98 06/17/22 05:19 88 20 112/66 96 06/17/22 03:37 88 22 104/59 L 96 06/17/22 01:38 36.7 C 82 24 126/78 97 Pulse Ox O2 Del Method O2 Del Method 06/17/22 11:59 Room Air 06/17/22 09:45 96 Room Air 06/17/22 09:44 Room Air 06/17/22 09:44 97 Room Air 06/17/22 08:17 Room Air 06/17/22 08:11 Room Air 06/17/22 07:54 Room Air 06/17/22 06:16 Room Air 06/17/22 05:19 Room Air 06/17/22 03:37 Room Air 06/17/22 01:38 Room Air Laboratory Results Laboratory Results - last 24 hr 06/17/22 06/17/22 06/17/22 01:45 01:45 01:45 WBC 5.77 RBC 4.23 Hgb 12.8 Hct 36.2 MCV 85.6 MCH 30.3 MCHC 35.4 RDW Std Deviation 62.0 H RDW Coeff of Nico 19.8 H Plt Count 152 MPV 9.6 Immature Gran % (Auto) 0.7 Neut % (Auto) 75.5 Lymph % (Auto) 15.1 Murray % (Auto) 7.5 Eos % (Auto) 0.5 Baso % (Auto) 0.7 Neut # (Auto) 4.36 Lymph # (Auto) 0.87 L Murray # (Auto) 0.43 Eos # (Auto) 0.03 Baso # (Auto) 0.04 Immature Gran # (Auto) 0.04 H PT INR APTT PTT Ratio Sodium 123 L Potassium 3.3 L Chloride 88 L Carbon Dioxide 20 L Anion Gap 15 H BUN 3 L Creatinine 0.44 L Est Cr Clr Drug Dosing 182.3 Est GFR ( Amer) 148.4 Est GFR (Non-Af Amer) 128.1 BUN/Creatinine Ratio 6.8 L Glucose 105 H Osmolality Calcium 8.7 Total Bilirubin 1.6 H AST 318 H ALT 132 H Alkaline Phosphatase 328 H Total Protein 6.3 Albumin 3.3 L Globulin 3.0 Albumin/Globulin Ratio 1.1 Lipase 211 H TSH 1.926 Urine Color Urine Appearance Urine pH Ur Specific [place] Urine Protein Urine Glucose (UA) Urine Ketones Urine Blood Urine Nitrite Urine Bilirubin Urine Urobilinogen Ur Leukocyte Esterase Urine Osmolality Ethyl Alcohol mg/dL SARS-CoV-2 (PCR) Hepatitis A IgM Ab Hep Bs Antigen Hep Bs Ag Confirmation Hep B Core IgM Ab Hepatitis C Ab (EIA) Hep C Ab Signal/Cutoff Influenza Type A (PCR) Influenza Type B (PCR) RSV (RT-PCR) 06/17/22 06/17/22 06/17/22 01:45 01:45 01:45 WBC RBC Hgb Hct MCV MCH MCHC RDW Std Deviation RDW Coeff of Nico Plt Count MPV Immature Gran % (Auto) Neut % (Auto) Lymph % (Auto) Murray % (Auto) Eos % (Auto) Baso % (Auto) Neut # (Auto) Lymph # (Auto) Murray # (Auto) Eos # (Auto) Baso # (Auto) Immature Gran # (Auto) PT INR APTT PTT Ratio Sodium Potassium Chloride Carbon Dioxide Anion Gap BUN Creatinine Est Cr Clr Drug Dosing Est GFR ( Amer) Est GFR (Non-Af Amer) BUN/Creatinine Ratio Glucose Osmolality 259 L Calcium Total Bilirubin AST ALT Alkaline Phosphatase Total Protein Albumin Globulin Albumin/Globulin Ratio Lipase TSH Urine Color Urine Appearance Urine pH Ur Specific [place] Urine Protein Urine Glucose (UA) Urine Ketones Urine Blood Urine Nitrite Urine Bilirubin Urine Urobilinogen Ur Leukocyte Esterase Urine Osmolality Ethyl Alcohol mg/dL 23.4 H SARS-CoV-2 (PCR) Hepatitis A IgM Ab Pending Hep Bs Antigen Pending Hep Bs Ag Confirmation Pending Hep B Core IgM Ab Pending Hepatitis C Ab (EIA) Pending Hep C Ab Signal/Cutoff Pending Influenza Type A (PCR) Influenza Type B (PCR) RSV (RT-PCR) 06/17/22 06/17/22 06/17/22 01:45 02:40 02:40 WBC RBC Hgb Hct MCV MCH MCHC RDW Std Deviation RDW Coeff of Nico Plt Count MPV Immature Gran % (Auto) Neut % (Auto) Lymph % (Auto) Murray % (Auto) Eos % (Auto) Baso % (Auto) Neut # (Auto) Lymph # (Auto) Murray # (Auto) Eos # (Auto) Baso # (Auto) Immature Gran # (Auto) PT 11.5 INR 1.1 APTT 33.3 H PTT Ratio 1.2 Sodium Potassium Chloride Carbon Dioxide Anion Gap BUN Creatinine Est Cr Clr Drug Dosing Est GFR ( Amer) Est GFR (Non-Af Amer) BUN/Creatinine Ratio Glucose Osmolality Calcium Total Bilirubin AST ALT Alkaline Phosphatase Total Protein Albumin Globulin Albumin/Globulin Ratio Lipase TSH Urine Color Yellow Urine Appearance Clear Urine pH 5.5 Ur Specific [place] 1.001 Urine Protein Negative Urine Glucose (UA) Negative Urine Ketones Negative Urine Blood Negative Urine Nitrite Negative Urine Bilirubin Negative Urine Urobilinogen Negative Ur Leukocyte Esterase Negative Urine Osmolality Ethyl Alcohol mg/dL SARS-CoV-2 (PCR) NEGATIVE Hepatitis A IgM Ab Hep Bs Antigen Hep Bs Ag Confirmation Hep B Core IgM Ab Hepatitis C Ab (EIA) Hep C Ab Signal/Cutoff Influenza Type A (PCR) Negative Influenza Type B (PCR) Negative RSV (RT-PCR) Negative 06/17/22 06/17/22 06/17/22 02:40 06:18 11:19 WBC RBC Hgb Hct MCV MCH MCHC RDW Std Deviation RDW Coeff of Nico Plt Count MPV Immature Gran % (Auto) Neut % (Auto) Lymph % (Auto) Murray % (Auto) Eos % (Auto) Baso % (Auto) Neut # (Auto) Lymph # (Auto) Murray # (Auto) Eos # (Auto) Baso # (Auto) Immature Gran # (Auto) PT INR APTT PTT Ratio Sodium 127 L 131 L Potassium 3.6 3.6 Chloride 92 L 97 L Carbon Dioxide 25 25 Anion Gap 10 9 BUN 3 L 3 L Creatinine 0.53 L 0.54 L Est Cr Clr Drug Dosing 151.3 148.5 Est GFR ( Amer) 139.6 138.7 Est GFR (Non-Af Amer) 120.4 119.7 BUN/Creatinine Ratio 5.7 L 5.6 L Glucose 92 83 Osmolality Calcium 8.7 8.6 Total Bilirubin AST ALT Alkaline Phosphatase Total Protein Albumin Globulin Albumin/Globulin Ratio Lipase TSH Urine Color Urine Appearance Urine pH Ur Specific [place] Urine Protein Urine Glucose (UA) Urine Ketones Urine Blood Urine Nitrite Urine Bilirubin Urine Urobilinogen Ur Leukocyte Esterase Urine Osmolality 41 L Ethyl Alcohol mg/dL SARS-CoV-2 (PCR) Hepatitis A IgM Ab Hep Bs Antigen Hep Bs Ag Confirmation Hep B Core IgM Ab Hepatitis C Ab (EIA) Hep C Ab Signal/Cutoff Influenza Type A (PCR) Influenza Type B (PCR) RSV (RT-PCR) PG Care Time/CCT Total # of Minutes Spent Total Time Spent with Patient: Total time spent is greater than 50% in coordination of care (as documented) at patient's floor/unit and/or counseling patient: Coding Level of Care Code 88084 Inpt Consult Level 4 Diagnoses Chronic hyponatremia E87.1 Pancreatitis K85.90 Hypokalemia E87.6 Alcohol abuse F10.10
--- NOTE | 2022-06-17 14:58 | Gastrointestinal Consultation ---
Date of Consultation June 17, 2022 Assessment & Plan (1) Hematemesis: Suspect this is just irritation from vomiting. She actually thinks it is from her phlegm and coughing. Her H/H is stable so I don't feel pressed to do EGD for this history. She more than likely has alcoholic gastritis and the blood c an be from that as well. Present on Admission?: Yes (2) Acute epigastric pain: I suspect this is related to alcohol as well. She could have alcoholic gastritis and could well have an ulcer. She is on pantoprazole so I would see how she does. We can do EGD if she doesn't improve over the next day or so. She does not have pancreatitis now with a normal CT. She is "starving" so I am going to allow her to have liquids to see how she does. Present on Admission?: Yes (3) Abnormal LFTs: Fairly significantly elevated in the pattern of alcoholic hepatitis. I counseled her (as I am sure a number of MDs have) that she needs to stop the drinking as she is showing signs of liver damage at age 37 from drinking. Present on Admission?: Yes History of Present Illness Reason for Consultation: hematemesis Attending Physician: Chris Champion History of Present Illness 37 year old female with alcohol issues who is here for upper abdominal and chest pain. I am asked to see her because of "hematemesis". She tells me she vomited three times yesterday and on the third time there was flecks or small streaks of blood in what she thought was "phlegm". She has been having issues with nausea and diarrhea for a week or so. Yesterday she said she developed pain in her upper abdomen that went into her chest. She wakes in the morning with "bubbling" in her stomach and then hot water comes up. She is taking "acid medicine" as prescribed to her on her last ER visit although her home meds do not include any PPI but do include ondansetron. She has a long history of alcohol abuse and has been through rehab. She tells me she has not been eating much and has been mainly consuming alcohol but "only six beers per day". CT in the ER showed normal pancreas but questionable thickening in the left colon. She tells me she is "starving" now. Allergies Allergy/AdvReac Type Severity Reaction Status Date / Time adhesive Allergy Intermediate SKIN Verified 05/15/22 19:32 BLISTER, TORN OFF SKIN WHEN REMOVED Home Medications Medication Instructions Recorded Confirmed Type albuterol sulfate 90 mcg/actuation 2 inh inhalation Q4H PRN shortness 10/16/21 06/17/22 Rx aerosol inhaler of breath or wheezing #6.7 grams levothyroxine 112 mcg tablet 112 mcg PO DAILY #90 tabs 02/22/22 06/17/22 Rx ibuprofen 600 mg tablet 600 mg PO Q8H PRN Pain 05/15/22 06/17/22 History ondansetron 4 mg disintegrating 4 mg PO Q8H PRN nausea and 05/15/22 06/17/22 Rx tablet vomiting #30 tabs Patient History Medical History Anxiety Fatigue H/O ETOH abuse Hypothyroid Thyroid condition Tobacco abuse disorder Surgical History No pertinent past surgical history Family History Father Heart disease Colorectal cancer Myocardial infarction Denies family history of Ovarian cancer Prostate cancer Breast cancer Social History Smoking Status: Current every day smoker Tobacco Type: Cigarettes packs per day: 1; Cigarettes Per Day: 20; Second Hand Exposure: No; Do You Dip or Chew Tobacco: No; Tobacco Cessation Education Requested by Patient: No Hx Alcohol Use: Yes Alcohol type: beer Hx Substance Use: Yes Last Used Substance: Unknown Preferred Language: Beninese Communication Ability: Effective Visual Impairment: No Limitations Hearing Ability: Normal Text Transcriber Required: No Beliefs That Will Affect Care: None marital status: Single Current Living Situation: Alone current occupational status: employed Other Information That Helps Us Care for You: No Feels Safe at Home: Yes Diet Comment: regular caffeine: Yes during the past year weight has: remained stable Dental Care, Regularly: No Physical Activity Frequency: 5-6 Times per Week Physical Activity Frequency Comment: active job Seatbelt Use: always Sunscreen Use: Yes Assistive Devices: Glasses Review of Systems Review of Systems: All systems reviewed & are unremarkable except as noted in HPI & below Physical Exam Constitutional: WD/WN, vitals as above no acute distress Eyes: PERRL, conjunctivae normal, anicteric sclerae ENMT: external ear and nose normal, oropharynx normal Neck: trachea midline, no thyromegaly Respiratory: normal respiratory effort, lungs clear to auscultation Cardiovascular: RRR, no murmur, no edema Gastrointestinal (Abdomen): Inspection/Auscultation: abdomen normal to inspection and normal bowel sounds Percussion/Palpation: + abdomen tender (diffusely) Musculoskeletal: Extremities: no cyanosis and no clubbing Skin: no rashes, warm and dry Neurologic: PERRL, EOMI, accommodation nl, no face palsy, no dysarthria Psychiatric: Orientation: alert and oriented x 3 Results & Data ([facility]) Vital Signs (Past 12 Hours) Vital Signs Temp Pulse Pulse Resp BP BP Pulse Ox 06/17/22 13:00 80 18 111/73 100 06/17/22 12:47 37.1 C 86 18 97/69 L 96 06/17/22 11:59 86 18 98 06/17/22 09:45 06/17/22 09:44 100 H 16 124/71 96 06/17/22 09:44 06/17/22 08:17 36.9 C 100 H 20 112/63 98 06/17/22 08:11 86 18 96 06/17/22 07:54 36.9 C 98 H 20 102/68 97 06/17/22 06:16 87 15 105/74 98 06/17/22 05:19 88 20 112/66 96 06/17/22 03:37 88 22 104/59 L 96 Pulse Ox O2 Del Method O2 Del Method 06/17/22 13:00 Room Air 06/17/22 12:47 Room Air 06/17/22 11:59 Room Air 06/17/22 09:45 96 Room Air 06/17/22 09:44 Room Air 06/17/22 09:44 97 Room Air 06/17/22 08:17 Room Air 06/17/22 08:11 Room Air 06/17/22 07:54 Room Air 06/17/22 06:16 Room Air 06/17/22 05:19 Room Air 06/17/22 03:37 Room Air Laboratory Results 06/17/22 06/17/22 06/17/22 Range/Units 11:19 06:18 02:40 WBC (4.8-10.8) K/ul RBC (3.93-5.22) M/uL Hgb (12.0-16.0) g/dl Hct (34.1-44.9) % MCV (80.0-100.0) fL MCH (25.0-34.0) pg MCHC (32.0-36.0) g/dL RDW Std Deviation (36.4-46.3) fL RDW Coeff of Nico (11.5-14.5) % Plt Count (130-400) K/uL MPV (9.4-12.3) fL Immature Gran % (Auto) % Neut % (Auto) % Lymph % (Auto) % [place] % (Auto) % Eos % (Auto) % Baso % (Auto) % Neut # (Auto) (1.4-6.5) K/uL Lymph # (Auto) (1.2-3.4) K/uL [place] # (Auto) (0.24-0.82) K/uL Eos # (Auto) (0-0.50) K/uL Baso # (Auto) (0-0.2) K/uL Immature Gran # (Auto) (0.00-0.02) K/uL PT (9.0-12.0) Seconds INR (0.9-1.1) APTT (21.0-31.0) Seconds PTT Ratio Sodium 131 L 127 L (136-145) mmol/L Potassium 3.6 3.6 (3.5-5.1) mmol/L Chloride 97 L 92 L (98-107) mmol/L Carbon Dioxide 25 25 (21-32) mmol/L Anion Gap 9 10 (3-11) BUN 3 L 3 L (6-23) mg/dl Creatinine 0.54 L 0.53 L (0.6-1.2) mg/dl Est Cr Clr Drug Dosing 148.5 151.3 ml/min Est GFR ( Amer) 138.7 139.6 ml/min Est GFR (Non-Af Amer) 119.7 120.4 ml/min BUN/Creatinine Ratio 5.6 L 5.7 L (10-20) Glucose 83 92 (70-99(Fasting)) mg/dl Osmolality (280-300) mOsm/kg Calcium 8.6 8.7 (8.5-10.1) mg/dl Total Bilirubin (0.2-1.0) mg/dl AST (13-39) U/L ALT (7-52) U/L Alkaline Phosphatase (34-104) U/L Total Protein (6.0-8.3) gm/dl Albumin (3.4-5.0) gm/dl Globulin (2.5-4.0) gm/dl Albumin/Globulin Ratio (0.9-2) Lipase (11-82) U/L TSH (0.300-4.500) uIu/ml Urine Color Urine Appearance (Clear) Urine pH (4.5-7.5) Ur Specific [place] (1.000-1.030) Urine Protein (Negative) Urine Glucose (UA) (Negative) Urine Ketones (Negative) Urine Blood (Negative) Urine Nitrite (Negative) Urine Bilirubin (Negative) Urine Urobilinogen (Negative) Ur Leukocyte Esterase (Negative) Urine Osmolality 41 L (500-800) mOsm/kg Ethyl Alcohol mg/dL (<10.0) mg/dl SARS-CoV-2 (PCR) (Negative) Hepatitis A IgM Ab Hep Bs Antigen Hep Bs Ag Confirmation Hep B Core IgM Ab Hepatitis C Ab (EIA) Hep C Ab Signal/Cutoff Influenza Type A (PCR) (Neg) Influenza Type B (PCR) (Neg) RSV (RT-PCR) (Neg) 06/17/22 06/17/22 06/17/22 Range/Units 02:40 02:40 01:45 WBC (4.8-10.8) K/ul RBC (3.93-5.22) M/uL Hgb (12.0-16.0) g/dl Hct (34.1-44.9) % MCV (80.0-100.0) fL MCH (25.0-34.0) pg MCHC (32.0-36.0) g/dL RDW Std Deviation (36.4-46.3) fL RDW Coeff of Nico (11.5-14.5) % Plt Count (130-400) K/uL MPV (9.4-12.3) fL Immature Gran % (Auto) % Neut % (Auto) % Lymph % (Auto) % [place] % (Auto) % Eos % (Auto) % Baso % (Auto) % Neut # (Auto) (1.4-6.5) K/uL Lymph # (Auto) (1.2-3.4) K/uL [place] # (Auto) (0.24-0.82) K/uL Eos # (Auto) (0-0.50) K/uL Baso # (Auto) (0-0.2) K/uL Immature Gran # (Auto) (0.00-0.02) K/uL PT 11.5 (9.0-12.0) Seconds INR 1.1 (0.9-1.1) APTT 33.3 H (21.0-31.0) Seconds PTT Ratio 1.2 Sodium (136-145) mmol/L Potassium (3.5-5.1) mmol/L Chloride (98-107) mmol/L Carbon Dioxide (21-32) mmol/L Anion Gap (3-11) BUN (6-23) mg/dl Creatinine (0.6-1.2) mg/dl Est Cr Clr Drug Dosing ml/min Est GFR ( Amer) ml/min Est GFR (Non-Af Amer) ml/min BUN/Creatinine Ratio (10-20) Glucose (70-99(Fasting)) mg/dl Osmolality (280-300) mOsm/kg Calcium (8.5-10.1) mg/dl Total Bilirubin (0.2-1.0) mg/dl AST (13-39) U/L ALT (7-52) U/L Alkaline Phosphatase (34-104) U/L Total Protein (6.0-8.3) gm/dl Albumin (3.4-5.0) gm/dl Globulin (2.5-4.0) gm/dl Albumin/Globulin Ratio (0.9-2) Lipase (11-82) U/L TSH (0.300-4.500) uIu/ml Urine Color Yellow Urine Appearance Clear (Clear) Urine pH 5.5 (4.5-7.5) Ur Specific [place] 1.001 (1.000-1.030) Urine Protein Negative (Negative) Urine Glucose (UA) Negative (Negative) Urine Ketones Negative (Negative) Urine Blood Negative (Negative) Urine Nitrite Negative (Negative) Urine Bilirubin Negative (Negative) Urine Urobilinogen Negative (Negative) Ur Leukocyte Esterase Negative (Negative) Urine Osmolality (500-800) mOsm/kg Ethyl Alcohol mg/dL (<10.0) mg/dl SARS-CoV-2 (PCR) NEGATIVE (Negative) Hepatitis A IgM Ab Hep Bs Antigen Hep Bs Ag Confirmation Hep B Core IgM Ab Hepatitis C Ab (EIA) Hep C Ab Signal/Cutoff Influenza Type A (PCR) Negative (Neg) Influenza Type B (PCR) Negative (Neg) RSV (RT-PCR) Negative (Neg) 06/17/22 06/17/22 06/17/22 Range/Units 01:45 01:45 01:45 WBC (4.8-10.8) K/ul RBC (3.93-5.22) M/uL Hgb (12.0-16.0) g/dl Hct (34.1-44.9) % MCV (80.0-100.0) fL MCH (25.0-34.0) pg MCHC (32.0-36.0) g/dL RDW Std Deviation (36.4-46.3) fL RDW Coeff of Nico (11.5-14.5) % Plt Count (130-400) K/uL MPV (9.4-12.3) fL Immature Gran % (Auto) % Neut % (Auto) % Lymph % (Auto) % [place] % (Auto) % Eos % (Auto) % Baso % (Auto) % Neut # (Auto) (1.4-6.5) K/uL Lymph # (Auto) (1.2-3.4) K/uL [place] # (Auto) (0.24-0.82) K/uL Eos # (Auto) (0-0.50) K/uL Baso # (Auto) (0-0.2) K/uL Immature Gran # (Auto) (0.00-0.02) K/uL PT (9.0-12.0) Seconds INR (0.9-1.1) APTT (21.0-31.0) Seconds PTT Ratio Sodium (136-145) mmol/L Potassium (3.5-5.1) mmol/L Chloride (98-107) mmol/L Carbon Dioxide (21-32) mmol/L Anion Gap (3-11) BUN (6-23) mg/dl Creatinine (0.6-1.2) mg/dl Est Cr Clr Drug Dosing ml/min Est GFR ( Amer) ml/min Est GFR (Non-Af Amer) ml/min BUN/Creatinine Ratio (10-20) Glucose (70-99(Fasting)) mg/dl Osmolality 259 L (280-300) mOsm/kg Calcium (8.5-10.1) mg/dl Total Bilirubin (0.2-1.0) mg/dl AST (13-39) U/L ALT (7-52) U/L Alkaline Phosphatase (34-104) U/L Total Protein (6.0-8.3) gm/dl Albumin (3.4-5.0) gm/dl Globulin (2.5-4.0) gm/dl Albumin/Globulin Ratio (0.9-2) Lipase (11-82) U/L TSH (0.300-4.500) uIu/ml Urine Color Urine Appearance (Clear) Urine pH (4.5-7.5) Ur Specific [place] (1.000-1.030) Urine Protein (Negative) Urine Glucose (UA) (Negative) Urine Ketones (Negative) Urine Blood (Negative) Urine Nitrite (Negative) Urine Bilirubin (Negative) Urine Urobilinogen (Negative) Ur Leukocyte Esterase (Negative) Urine Osmolality (500-800) mOsm/kg Ethyl Alcohol mg/dL 23.4 H (<10.0) mg/dl SARS-CoV-2 (PCR) (Negative) Hepatitis A IgM Ab Pending Hep Bs Antigen Pending Hep Bs Ag Confirmation Pending Hep B Core IgM Ab Pending Hepatitis C Ab (EIA) Pending Hep C Ab Signal/Cutoff Pending Influenza Type A (PCR) (Neg) Influenza Type B (PCR) (Neg) RSV (RT-PCR) (Neg) 06/17/22 06/17/22 06/17/22 Range/Units 01:45 01:45 01:45 WBC 5.77 (4.8-10.8) K/ul RBC 4.23 (3.93-5.22) M/uL Hgb 12.8 (12.0-16.0) g/dl Hct 36.2 (34.1-44.9) % MCV 85.6 (80.0-100.0) fL MCH 30.3 (25.0-34.0) pg MCHC 35.4 (32.0-36.0) g/dL RDW Std Deviation 62.0 H (36.4-46.3) fL RDW Coeff of Nico 19.8 H (11.5-14.5) % Plt Count 152 (130-400) K/uL MPV 9.6 (9.4-12.3) fL Immature Gran % (Auto) 0.7 % Neut % (Auto) 75.5 % Lymph % (Auto) 15.1 % [place] % (Auto) 7.5 % Eos % (Auto) 0.5 % Baso % (Auto) 0.7 % Neut # (Auto) 4.36 (1.4-6.5) K/uL Lymph # (Auto) 0.87 L (1.2-3.4) K/uL [place] # (Auto) 0.43 (0.24-0.82) K/uL Eos # (Auto) 0.03 (0-0.50) K/uL Baso # (Auto) 0.04 (0-0.2) K/uL Immature Gran # (Auto) 0.04 H (0.00-0.02) K/uL PT (9.0-12.0) Seconds INR (0.9-1.1) APTT (21.0-31.0) Seconds PTT Ratio Sodium 123 L (136-145) mmol/L Potassium 3.3 L (3.5-5.1) mmol/L Chloride 88 L (98-107) mmol/L Carbon Dioxide 20 L (21-32) mmol/L Anion Gap 15 H (3-11) BUN 3 L (6-23) mg/dl Creatinine 0.44 L (0.6-1.2) mg/dl Est Cr Clr Drug Dosing 182.3 ml/min Est GFR ( Amer) 148.4 ml/min Est GFR (Non-Af Amer) 128.1 ml/min BUN/Creatinine Ratio 6.8 L (10-20) Glucose 105 H (70-99(Fasting)) mg/dl Osmolality (280-300) mOsm/kg Calcium 8.7 (8.5-10.1) mg/dl Total Bilirubin 1.6 H (0.2-1.0) mg/dl AST 318 H (13-39) U/L ALT 132 H (7-52) U/L Alkaline Phosphatase 328 H (34-104) U/L Total Protein 6.3 (6.0-8.3) gm/dl Albumin 3.3 L (3.4-5.0) gm/dl Globulin 3.0 (2.5-4.0) gm/dl Albumin/Globulin Ratio 1.1 (0.9-2) Lipase 211 H (11-82) U/L TSH 1.926 (0.300-4.500) uIu/ml Urine Color Urine Appearance (Clear) Urine pH (4.5-7.5) Ur Specific [place] (1.000-1.030) Urine Protein (Negative) Urine Glucose (UA) (Negative) Urine Ketones (Negative) Urine Blood (Negative) Urine Nitrite (Negative) Urine Bilirubin (Negative) Urine Urobilinogen (Negative) Ur Leukocyte Esterase (Negative) Urine Osmolality (500-800) mOsm/kg Ethyl Alcohol mg/dL (<10.0) mg/dl SARS-CoV-2 (PCR) (Negative) Hepatitis A IgM Ab Hep Bs Antigen Hep Bs Ag Confirmation Hep B Core IgM Ab Hepatitis C Ab (EIA) Hep C Ab Signal/Cutoff Influenza Type A (PCR) (Neg) Influenza Type B (PCR) (Neg) RSV (RT-PCR) (Neg) Diagnostic Findings Abdomen/Pelvis CT 06/17/22 05:30 CT SCAN OF THE ABDOMEN AND PELVIS WITHOUT IV CONTRAST CLINICAL HISTORY: Left lower quadrant abdominal pain. Weight loss. COMPARISON STUDY: Abdominal CT dated 05/15/2022. TECHNIQUE: CT scan of the abdomen and pelvis is performed from the lung bases to the proximal femora. Images are reviewed in the axial, sagittal, and coronal planes. IV contrast was not administered for this examination as per the referring clinician. Note that the examination was performed in significantly suboptimal fashion without oral and IV contrast. A dose lowering technique was utilized adhering to the principles of ALARA. CT DOSE: 470.37 mGy.cm FINDINGS: Lung bases: The heart is normal in size and without pericardial effusion. The lung bases are clear. Liver: The unenhanced liver is enlarged, measuring 21.2 cm in length. The liver demonstrates diffusely diminished attenuation indicating severe steatosis. There is no intrahepatic biliary ductal dilatation. Gallbladder: Surgically absent and clips in the gallbladder fossa. Spleen: Normal in size and attenuation. Pancreas: Unremarkable. Adrenal glands: Unremarkable. Kidneys: The unenhanced kidneys are normal in size and without hydronephrosis. There are no renal calculi identified. There is no evidence of contour deforming renal mass lesion. A retroaortic left renal vein is incidentally noted. Abdominal vasculature: The abdominal aorta is normal in course and caliber noting mild to moderate atherosclerotic calcification. Bowel: Submucosal fat deposition is seen throughout the colon. This is nonspecific but has been described in the setting of chronic inflammation. There is mild wall thickening of the distal descending colon and proximal sigmoid. No bowel obstruction is seen. The appendix is well-visualized and normal. Peritoneum: There is no intraperitoneal free air or abdominal ascites. There is a fat-containing umbilical hernia. Lymphadenopathy: None. Pelvic viscera: The bladder wall appears thickened. The uterus and adnexa are normal as visualized. Skeletal structures: No lytic or blastic lesions are seen. IMPRESSION: 1. Suboptimal examination without oral and IV contrast. 2. The bladder wall appears thickened. Correlate with clinical findings and urinalysis. 3. Question mild wall thickening of the distal left colon. Correlate clinically for evidence of a nonspecific colitis. 4. Hepatomegaly and severe steatosis. 5. Additional findings as above. ACT 112: Negative or not required by law. Electronically signed by: Trey Dhaliwal M.D. 06/17/2022 7:[address] 06/17/22 05:30 CT OF THE CHEST WITHOUT IV CONTRAST CLINICAL HISTORY: hypoxia, weight loss COMPARISON STUDY: Chest radiograph January 23, 2022. TECHNIQUE: Axial images of the chest were obtained without IV contrast. Images were reviewed in the axial, sagittal, and coronal planes. IV contrast was not administered for this examination. Automated exposure control was utilized for the study. A dose lowering technique was utilized adhering to the principles of ALARA. FINDINGS: No enlarged axillary, mediastinal or hilar lymph nodes are present. The size of the heart is normal. There is no pericardial effusion. No pneumothorax or pleural effusion is present. There is mild multifocal mucus plu gging within the lungs. An 8 mm groundglass nodular opacity within the left lower lobe on image 220 of 296 is noted. There is minimal groundglass opacity within the right middle lobe. No consolidation is identified. Bony thorax is unremarkable. Hepatic steatosis is noted. The CT of the abdomen and pelvis will be reported separately. IMPRESSION: 1. No consolidation. 2. 8 mm groundglass nodular opacity within the left lower lobe and minimal ground glass opacity within the right middle lobe. This likely reflects atelectasis. An infectious process could appear similar although is considered less likely. A follow-up chest CT in 3 months to ensure resolution is recommended. 3. Mild mucus plugging within the lungs. 4. Hepatic steatosis. ACT 112: Negative or not required by law. Electronically signed by: Jose Alfredo Smith M.D. 06/17/2022 7:12 AM
[2022-06-17] MEDS: LACTATED RINGER'S 1,000 ML IV SCH ×2 (15:41→23:41)
[2022-06-17 15:48] LABS: BUN Creatinine Ratio 5.1 (10-20); Calcium 8.9 mg/dl (8.5-10.1); Creatinine Clr Calc Pharmacy 135.9 ml/min; Est GFR (African American) 134.8 ml/min; Est GFR (Non-African American) 116.3 ml/min; Potassium 3.6 mmol/L (3.5-5.1)
[2022-06-17 20:20] LABS: BUN Creatinine Ratio 3.9 (10-20); Calcium 8.5 mg/dl (8.5-10.1); Creatinine Clr Calc Pharmacy 105.5 ml/min; Est GFR (African American) 115.3 ml/min; Est GFR (Non-African American) 99.5 ml/min; Potassium 3.1 mmol/L (3.5-5.1)
[2022-06-17] MEDS: POTASSIUM CHLORIDE CRTAB 20 MEQ TABCR PO SCH (21:30)
[2022-06-18] MEDS ORDERED: HYDROmorphone INJ 0.5 MG/0.5 ML SYR IV STA (03:26)
[2022-06-18] MEDS ORDERED: ACETAMINOPHEN 500 MG TAB PO STA (03:26)
[2022-06-18] MEDS ORDERED: FAMOTIDINE 20 MG in SYRINGE 3 ML IV ONE (03:30)
[2022-06-18] MEDS: ALBUTEROL HFA 8 GM INHALER INH SCH (04:57)
[2022-06-18] MEDS ORDERED: GABAPENTIN 800MG ALCOHOL WITHDRAWAL LOAD PO STA (05:30)
--- NOTE | 2022-06-18 05:30 | Communication Note ---
Date of Service: June 17, 2022 Patient admitted earlier today. c/o ongoing upper abd pain. clears ordered by GI - she requests diet advancement - "I'm hungry". no further vomiting. does report copious beer intake on daily basis at home - drinks 16oz beers, minimum 5/day. has had etoh withdrawal in the past. c/o muscle spasms and cramps. exam - gen - NAD mouth - MMM neck - no JVD heart - RRR lungs - CTA b/l abd - soft, tender epigastric region, BS+, no peritoneal signs ext - no edema labs - hyponatremia improving, Na now 132 low K noted A/P: 1. probable alcoholic gastritis - cont PPI 2. ?acute pancreatitis - clears only, no advancement tonight; cont LR IV fluids; lipase am 3. hypokalemia - replace; repeat BMP am; check mag level and replace as needed 4. weight loss - acute, over last 2 weeks, attributed to daily vomiting and poor po intake; should improve with cessation of vomiting, Rx of #1, cessation of etoh use 5. alcoholism - thiamine, folic acid; AWSS protocol; at risk of withdrawal 6. hyponatremia - 2nd to beer potomania, urine osm VERY low - d/c NaCl supplementation; should correct easily Chris Champion MD
[2022-06-18] MEDS ORDERED: GABAPENTIN 400 MG CAP PO ONE (05:45)
[2022-06-18] MEDS: LEVOTHYROXINE SODIUM 112 MCG TABLET PO SCH (06:04)
[2022-06-18] MEDS: MAGNESIUM SULFATE / D5W 1 GM/100 ML BAG IV SCH ×3 (06:10→10:51)
[2022-06-18] MEDS: THIAMINE HCL 200 MG in SODIUM CHLORIDE 0.9% 50 ML IV SCH ×2 (08:00→22:57)
[2022-06-18] MEDS: CEROVITE ADV FORMULA TAB PO SCH (08:05)
[2022-06-18] MEDS: PANTOprazole 40 MG in SYRINGE 0 ML IV SCH (08:05)
[2022-06-18] MEDS ORDERED: THIAMINE HCL 200 MG in SYRINGE 9 ML IV SCH (09:00)
[2022-06-18] MEDS: POTASSIUM CHLORIDE CRTAB 20 MEQ TABCR PO SCH ×2 (09:13→13:29)
[2022-06-18] MEDS: FOLIC ACID 1 MG in SYRINGE 9.8 ML IV SCH (09:13)
[2022-06-18 09:16] LABS: Basophils # (auto) 0.03 K/uL (0-0.2); Eosinophils # (auto) 0.09 K/uL (0-0.50); Eosinophils % (auto) 3.1 %; Hematocrit (blood only) 33.4 % (34.1-44.9); Hemoglobin 11.2 g/dl (12.0-16.0); Immature Granulocytes # (auto) 0.01 K/uL (0.00-0.02); Immature Granulocytes % (auto) 0.3 %; Lymphocytes # (auto) 1.21 K/uL (1.2-3.4); Lymphocytes % (auto) 42.2 %; Mean Platelet Volume 9.8 fL (9.4-12.3); Monocytes # (auto) 0.24 K/uL (0.24-0.82); Monocytes % (auto) 8.4 %; Neutrophils # (auto) 1.29 K/uL (1.4-6.5); Platelet Count 123 K/uL (130-400); White Blood Count 2.87 K/ul (4.8-10.8)
--- NOTE | 2022-06-18 09:22 | Nephrology Progress Note ---
Date of Service June 18, 2022 Assessment & Plan (1) Chronic hyponatremia: Plan: Alcohol photomania complicated by GI losses. Improving with therapy. Volume status acceptable. Remains on mIVF pending advancing diet beyond clears. AM labs pending. Assuming AM labs continue to improve, repeat blood work tomorrow AM. (2) Pancreatitis: Plan: Clinically improving. Alcohol pancreatitis. Electrolytes monitored. (3) Hypokalemia: Plan: IV magnesium replacement provided. Repeat labs pending. Secondary to GI losses and poor PO intake. (4) Alcohol abuse: Admission and Anticipated Discharge Date Admission Date: June 17, 2022 Subjective No acute events overnight. Abdominal discomfort improving. Loose stool but denies diarrhea. Some nausea persists with belching. No vomiting. No fevers or chills. Ameena feels very hungry this AM. IVF infusing without fluid retention or edema. Review of Systems Review of Systems: All systems reviewed & are unremarkable except as noted in HPI & below Physical Exam Constitutional: well developed; no acute distress Eyes: no scleral abnormality and no corneal abnormality ENMT: Mouth: + dry oral mucous membranes; no oral mucosal abnormality Neck: normal visual inspection and trachea midline Respiratory: normal respiratory effort Auscultation: lungs clear to auscultation bilaterally Cardiovascular: Rate/Rhythm: regular rate Heart Sounds: normal S1 and normal S2 Extremities: no edema Gastrointestinal (Abdomen): Inspection/Auscultation: normal bowel sounds Percussion/Palpation: + abdomen tender and abdomen soft; no guarding Musculoskeletal: Extremities: no cyanosis and no clubbing Skin: normal turgor; no lesions Neurologic: Motor/Sensory: no tremor and no asterixis Psychiatric: Orientation: alert and oriented x 3 Results & Data ([facility]) Vital Signs (Past 12 Hours) Vital Signs Temp Pulse Pulse Resp BP BP Pulse Ox 06/18/22 08:00 36.8 C 79 16 86/58 L 95 06/18/22 07:00 67 06/18/22 04:57 91 H 16 100 06/17/22 22:13 83 06/18/22 03:22 37 C 80 20 108/65 98 06/18/22 00:44 36.6 C 85 18 105/61 96 06/17/22 23:47 37.3 C 90 18 89/47 L 96 O2 Del Method 06/18/22 08:00 Room Air 06/18/22 07:00 06/18/22 04:57 Room Air 06/17/22 22:13 06/18/22 03:22 Room Air 06/18/22 00:44 Room Air 06/17/22 23:47 Room Air Laboratory Results Laboratory Results - last 24 hr 06/17/22 06/17/22 06/17/22 11:19 15:10 19:20 WBC RBC Hgb Hct MCV MCH MCHC Plt Count MPV Immature Gran % (Auto) Neut % (Auto) Lymph % (Auto) [place] % (Auto) Eos % (Auto) Baso % (Auto) Neut # (Auto) Lymph # (Auto) [place] # (Auto) Eos # (Auto) Baso # (Auto) Immature Gran # (Auto) Sodium 131 L 131 L 132 L Potassium 3.6 3.6 3.1 L Chloride 97 L 97 L 100 Carbon Dioxide 25 24 21 Anion Gap 9 10 11 BUN 3 L 3 L 3 L Creatinine 0.54 L 0.59 L 0.76 Est Cr Clr Drug Dosing 148.5 135.9 105.5 Est GFR ( Amer) 138.7 134.8 115.3 Est GFR (Non-Af Amer) 119.7 116.3 99.5 BUN/Creatinine Ratio 5.6 L 5.1 L 3.9 L Glucose 83 72 123 H Calcium 8.6 8.9 8.5 Phosphorus Magnesium Total Bilirubin AST ALT Alkaline Phosphatase Total Protein Albumin Globulin Albumin/Globulin Ratio Lipase 06/17/22 06/18/22 06/18/22 19:20 08:18 08:18 WBC 2.87 L RBC Pending Hgb 11.2 L Hct 33.4 L MCV Pending MCH Pending MCHC Pending Plt Count 123 L MPV 9.8 Immature Gran % (Auto) 0.3 Neut % (Auto) 45.0 Lymph % (Auto) 42.2 [place] % (Auto) 8.4 Eos % (Auto) 3.1 Baso % (Auto) 1.0 Neut # (Auto) 1.29 L Lymph # (Auto) 1.21 [place] # (Auto) 0.24 Eos # (Auto) 0.09 Baso # (Auto) 0.03 Immature Gran # (Auto) 0.01 Sodium Pending Potassium Pending Chloride Pending Carbon Dioxide Pending Anion Gap Pending BUN Pending Creatinine Pending Est Cr Clr Drug Dosing Pending Est GFR ( Amer) Pending Est GFR (Non-Af Amer) Pending BUN/Creatinine Ratio Pending Glucose Pending Calcium Pending Phosphorus Pending Magnesium 1.4 L Pending Total Bilirubin Pending AST Pending ALT Pending Alkaline Phosphatase Pending Total Protein Pending Albumin Pending Globulin Pending Albumin/Globulin Ratio Pending Lipase Pending PG Care Time/CCT Total # of Minutes Spent Total Time Spent with Patient: Total time spent is greater than 50% in coordination of care (as documented) at patient's floor/unit and/or counseling patient: Coding Level of Care Code 11990 Subseq Hosp Care Lvl 3 Diagnoses Chronic hyponatremia E87.1 Pancreatitis K85.90 Hypokalemia E87.6 Alcohol abuse F10.10
[2022-06-18 09:47] LABS: Albumin Globulin Ratio 1.2 (0.9-2); Albumin Level 2.9 gm/dl (3.4-5.0); Bilirubin,Total 1.3 mg/dl (0.2-1.0); Calcium 8.7 mg/dl (8.5-10.1); Creatinine Clr Calc Pharmacy 119.7 ml/min; Est GFR (African American) 129.2 ml/min; Est GFR (Non-African American) 111.5 ml/min; Globulin 2.5 gm/dl (2.5-4.0); Magnesium 1.9 mg/dl (1.7-2.4); Phosphorus 1.8 mg/dl (2.5-4.9); Potassium 3.4 mmol/L (3.5-5.1); Total Protein 5.4 gm/dl (6.0-8.3)
[2022-06-18 09:57] LABS: Anisocytosis Present; Mean Corpuscular Hgb Conc 33.5 g/dL (32.0-36.0); Mean Corpuscular Volume 89.5 fL (80.0-100.0); RDW Coefficient of Variation 20.9 % (11.5-14.5); RDW Standard Deviation 68.6 fL (36.4-46.3); Red Blood Count 3.73 M/uL (3.93-5.22)
[2022-06-18 11:16] LABS: HBSAG NON-REACTIVE (NON-REACTIVE); Hepatitis A Antibody IgM NON-REACTIVE (NON-REACTIVE); Hepatitis B Core Antibody IgM NON-REACTIVE (NON-REACTIVE)
[2022-06-18] MEDS ORDERED: GABAPENTIN 400 MG CAP PO SCH (12:00)
[2022-06-18] MEDS: DICLOFENAC SOD 1% GEL 100 GM TUBE EXT SCH ×3 (13:52→19:40)
[2022-06-18] MEDS: LACTATED RINGER'S 1,000 ML IV SCH ×2 (14:44→14:46)
--- NOTE | 2022-06-18 14:53 | Gastroenterology Progress Note ---
Date of Service June 18, 2022 Assessment & Plan (1) Acute epigastric pain: Plan: She is doing better on regular diet without pain. Would continue PPI and hopefully be able to discharge soon. She needs to quit drinking. LFT's were improved today Admission and Anticipated Discharge Date Admission Date: June 17, 2022 Subjective Looks better. Says her stomach is "full" because she just ate regular diet. No pain. Having loose not frequent stools due to liquid diet. Feels "burpy" Physical Exam Constitutional: well developed; not in distress Results & Data ([facility]) Vital Signs (Past 12 Hours) Vital Signs Temp Pulse Pulse Resp BP Pulse Ox O2 Del Method 06/18/22 11:40 36.6 C 76 18 95/63 L 100 Room Air 06/18/22 09:00 Room Air 06/18/22 08:00 36.8 C 79 16 86/58 L 95 Room Air 06/18/22 07:00 67 06/18/22 04:57 91 H 16 100 Room Air 06/18/22 03:22 37 C 80 20 108/65 98 Room Air
[2022-06-18] MEDS ORDERED: POTASSIUM PHOS 3 MMOL/1 ML INFUSION IV STA (16:39)
[2022-06-18] MEDS ORDERED: POTASSIUM PHOSPHATE 21 MMOL in SODIUM CHLORIDE 0.9% 500 ML IV ONE (16:45)
--- NOTE | 2022-06-18 17:13 | Hospitalist Progress Note ---
Date of Service June 18, 2022 Assessment & Plan (1) Hematemesis: Plan: Continue Protonixagree with GI most likely alcohol gastritis. Probably would benefit from EGD at some point in the future. Improving on Protonixswitch to p.o. Following regular diet. Hopefully home tomorrow (2) Alcohol abuse: Plan: AWSS protocol, fortunately not showing any significant withdrawal. Counseled on cessation. She notes that she drinks largely for stressbut does have other coping skills she could utilize. Encouraged her to do so. appears to have significant alcoholic steatohepatitis, educated/encouraged cessation (3) Hyponatremia: Plan: Beer Poto jayleen. With removal of beer, the beer Poto jayleen appears to be improving. (4) Weight loss, abnormal: Plan: Almost certainly relates to alcohol abuse/alcoholic gastritis, p.o. intake. CT scan is reassuring overall outside of fatty liver. Outpatient follow-up (5) Pancreatitis: Plan: more chemical than clinical, strongly suspect alcohol related (6) Tobacco abuse disorder: Plan: needs smoke cessation (7) Hypothyroid: Plan: Continue levothyroxine 112 mcg daily (8) Hypokalemia: Plan: ongoing repletion (9) Abnormal LFTs: Plan: alcoholic steatohepatitis. Bilirubin fortunately only mildly up at 1.3, and INR 1.1. (10) Anxiety: Plan: Encouraged nonalcoholic means of stress management (11) Right sided sciatica: Plan: with right-sided pelvic somatic dysfunction/piriformis dysfunction. OMT as above. Stretches taught. Encouraged her to follow-up with the DO physician in her PCPs office for further OMT. Voltaren gel across right piriformis 4 times daily. Doubt relates to her disc protrusion given that she seems to really have more low back pain with occasional numbness not necessarily a pattern fitting of a regular lumbar radiculopathy. Would give trial of OMT and stretching prior to managing as a radiculopathy per se Admission and Anticipated Discharge Date Admission Date: June 17, 2022 Subjective feeling better overall, hungry. wants to eat. asks about what she can take for her pain - when asked to clarify the painshe notes that it is her L5-S1but whenever I ask her what the pain actually is, she notes that it is predominantly in her low back. Further on directed questioning whenever I ask if it radiates down her leg, she notes sometimes she does get some numbness into her foot predominantly with prolonged sitting. This does not seem to be a dominant piece of her symptom complex. Review of Systems Review of Systems: All systems reviewed & are unremarkable except as noted in HPI & below Physical Exam Physical Exam: In general she is awake and alert pleasant no distress. HEENT normocephalic atraumatic mucous membranes moist. Breathing unlabored no accessory muscle use good effort. Abdomen is soft nondistended nontender no masses organomegaly. Osteopathic/musculoskeletal shows her right piriformis to be high tone, tender, decreased range of motionligamentous articular strain and inhibitory pressuretissue texture improved, patient tolerated well. Also taught patient stretches. Results & Data Results & Data ([facility]) Vital Signs (Past 12 Hours) Vital Signs Temp Pulse Pulse Resp BP BP Pulse Ox 06/18/22 15:11 98.1 F 76 20 95/59 L 97 06/18/22 11:40 97.9 F 76 18 95/63 L 100 06/18/22 09:00 06/18/22 08:00 98.2 F 79 16 86/58 L 95 06/18/22 07:00 67 O2 Del Method 06/18/22 15:11 Room Air 06/18/22 11:40 Room Air 06/18/22 09:00 Room Air 06/18/22 08:00 Room Air 06/18/22 07:00 PG Care Time/CCT Total # of Minutes Spent Total Time Spent with Patient: Total time spent is greater than 50% in coordination of care (as documented) at patient's floor/unit and/or counseling patient: Coding Level of Care Code 01261 Subseq Hosp Care Lvl 3 Diagnoses Hematemesis K92.0 Alcohol abuse F10.10 Hyponatremia E87.1 Weight loss, abnormal R63.4 Pancreatitis K85.90 Tobacco abuse disorder Z72.0 Hypothyroid E03.9 Hypothyroidism type: unspecified Hypokalemia E87.6 Abnormal LFTs R79.89 Anxiety F41.9 Right sided sciatica M54.31 CPT Codes Musculoskeletal - Musculoskeletal: [address] 1-2 Body regions ([id number]) (1) Hypothyroid Hypothyroidism type: unspecified Qualified Code(s): E03.9 - Hypothyroidism, unspecified
[2022-06-18] MEDS: PANTOprazole 40 MG TAB PO SCH (19:42)
[2022-06-19] MEDS ORDERED: GABAPENTIN 400 MG CAP PO SCH (02:00)
[2022-06-19] MEDS ORDERED: bisacodyL 5 MG TABEC PO PRN (05:42)
[2022-06-19] MEDS ORDERED: FAMOTIDINE 20 MG TAB PO STA (05:42)
[2022-06-19] MEDS ORDERED: ALUMINUM/MAGNESIUM SUSP 30 ML UDC PO STA (05:42)
[2022-06-19] MEDS: LEVOTHYROXINE SODIUM 112 MCG TABLET PO SCH (06:04)
[2022-06-19 06:26] LABS: Basophils # (auto) 0.04 K/uL (0-0.2); Basophils % (auto) 1.3 %; Eosinophils # (auto) 0.08 K/uL (0-0.50); Eosinophils % (auto) 2.6 %; Hematocrit (blood only) 35.5 % (34.1-44.9); Hemoglobin 11.4 g/dl (12.0-16.0); Immature Granulocytes # (auto) 0.02 K/uL (0.00-0.02); Immature Granulocytes % (auto) 0.6 %; Lymphocytes # (auto) 1.27 K/uL (1.2-3.4); Lymphocytes % (auto) 41.1 %; Mean Platelet Volume 10.5 fL (9.4-12.3); Monocytes # (auto) 0.23 K/uL (0.24-0.82); Monocytes % (auto) 7.4 %; Neutrophils # (auto) 1.45 K/uL (1.4-6.5); Platelet Count 107 K/uL (130-400); White Blood Count 3.09 K/ul (4.8-10.8)
[2022-06-19 06:56] LABS: Mean Corpuscular Hemoglobin 29.8 pg (25.0-34.0); Mean Corpuscular Hgb Conc 32.1 g/dL (32.0-36.0); Mean Corpuscular Volume 92.9 fL (80.0-100.0); RDW Coefficient of Variation 21.1 % (11.5-14.5); RDW Standard Deviation 71.7 fL (36.4-46.3); Red Blood Count 3.82 M/uL (3.93-5.22); Toxic Vacuolation 1+
[2022-06-19 07:20] LABS: Alanine Aminotransferase 92 U/L (7-52); Albumin Globulin Ratio 1.1 (0.9-2); Alkaline Phosphatase 267 U/L (34-104); Anion Gap 10 (3-11); Aspartate Aminotransferase 179 U/L (13-39); Bilirubin,Total 0.9 mg/dl (0.2-1.0); Blood Urea Nitrogen < 2 mg/dl (6-23); Calcium 8.8 mg/dl (8.5-10.1); Carbon Dioxide 20 mmol/L (21-32); Chloride 103 mmol/L (98-107); Creatinine Clr Calc Pharmacy 119.2 ml/min; Est GFR (African American) 129.2 ml/min; Est GFR (Non-African American) 111.5 ml/min; Globulin 2.7 gm/dl (2.5-4.0); Glucose 89 mg/dl (70-99(Fasting)); Phosphorus 2.9 mg/dl (2.5-4.9); Sodium 133 mmol/L (136-145); Total Protein 5.7 gm/dl (6.0-8.3)
[2022-06-19] MEDS: FOLIC ACID 1 MG in SYRINGE 9.8 ML IV SCH (08:40)
[2022-06-19] MEDS: DICLOFENAC SOD 1% GEL 100 GM TUBE EXT SCH (08:41)
[2022-06-19] MEDS: PANTOprazole 40 MG TAB PO SCH (08:47)
[2022-06-19] MEDS: THIAMINE HCL 200 MG in SODIUM CHLORIDE 0.9% 50 ML IV SCH (08:47)
[2022-06-19] MEDS: CEROVITE ADV FORMULA TAB PO SCH (08:48)
[2022-06-19] MEDS ORDERED: POLYETHYLENE (MIRALAX) 17 GM PACK PO ONE (10:16)
--- NOTE | 2022-06-19 10:25 | Nephrology Progress Note ---
Date of Service June 19, 2022 Assessment & Plan (1) Chronic hyponatremia: Plan: Beer potomania complicated by GI losses. Improved with therapy. Volume status acceptable. IVF discontinued. PO intake improving. Importance of appropriate nutrition discussed with patient. Plan of care reviewed with Dr. Cummings this AM. Outpatient follow up with nephrology can be arranged on discharge. (2) Pancreatitis: Plan: Notable improvement. Importance of avoiding alcohol stressed with patient. (3) Hypokalemia: Plan: Secondary to GI losses and poor PO intake. Improved. Admission and Anticipated Discharge Date Admission Date: June 17, 2022 Subjective No acute events overnight. No appetite. Feeling constipated. No BM in 24 hours. Denies nausea. Denies abdominal pain. No fluid retention or edema. I discussed the plan of care with Dr. Zoila naranjo AM. Review of Systems Review of Systems: All systems reviewed & are unremarkable except as noted in HPI & below Physical Exam Constitutional: well developed; no acute distress Eyes: no scleral abnormality and no corneal abnormality ENMT: Mouth: oral mucous membranes not dry Neck: normal visual inspection and trachea midline Respiratory: normal respiratory effort Auscultation: lungs clear to auscultation bilaterally Cardiovascular: Rate/Rhythm: regular rate Heart Sounds: normal S1 and normal S2 Extremities: no edema Musculoskeletal: Extremities: no cyanosis and no clubbing Skin: normal turgor; no lesions Neurologic: Motor/Sensory: no tremor and no asterixis Psychiatric: Orientation: alert and oriented x 3 Results & Data ([facility]) Vital Signs (Past 12 Hours) Vital Signs Temp Pulse Resp BP Pulse Ox O2 Del Method 06/19/22 08:27 36.9 C 70 16 125/87 96 Room Air 06/19/22 03:22 37.1 C 73 18 110/79 96 Room Air 06/18/22 23:08 37.0 C 67 17 99/50 L 98 Room Air Laboratory Results Laboratory Results - last 24 hr 06/17/22 06/19/22 06/19/22 01:45 06:02 06:02 WBC 3.09 L RBC 3.82 L Hgb 11.4 L Hct 35.5 MCV 92.9 MCH 29.8 MCHC 32.1 RDW Std Deviation 71.7 H RDW Coeff of Nico 21.1 H Plt Count 107 L MPV 10.5 Immature Gran % (Auto) 0.6 Neut % (Auto) 47.0 Lymph % (Auto) 41.1 Jewell % (Auto) 7.4 Eos % (Auto) 2.6 Baso % (Auto) 1.3 Neut # (Auto) 1.45 Lymph # (Auto) 1.27 Jewell # (Auto) 0.23 L Eos # (Auto) 0.08 Baso # (Auto) 0.04 Immature Gran # (Auto) 0.02 Toxic Vacuolation 1+ Sodium 133 L Potassium 4.0 Chloride 103 Carbon Dioxide 20 L Anion Gap 10 BUN < 2 L Creatinine 0.67 Est Cr Clr Drug Dosing 119.2 Est GFR ( Amer) 129.2 Est GFR (Non-Af Amer) 111.5 BUN/Creatinine Ratio TNP Glucose 89 Calcium 8.8 Phosphorus 2.9 D Magnesium 2.0 Total Bilirubin 0.9 AST 179 H ALT 92 H Alkaline Phosphatase 267 H Total Protein 5.7 L Albumin 3.0 L Globulin 2.7 Albumin/Globulin Ratio 1.1 Hepatitis A IgM Ab NON-REACTIVE Hep Bs Antigen NON-REACTIVE Hep Bs Ag Confirmation TNP Hep B Core IgM Ab NON-REACTIVE Hepatitis C Ab (EIA) NON-REACTIVE Hep C Ab Signal/Cutoff <0.02 PG Care Time/CCT Total # of Minutes Spent Total Time Spent with Patient: Total time spent is greater than 50% in coordination of care (as documented) at patient's floor/unit and/or counseling patient: Coding Level of Care Code 76147 Subseq Hosp Care Lvl 3 Diagnoses Chronic hyponatremia E87.1 Pancreatitis K85.90 Hypokalemia E87.6
--- NOTE | 2022-06-19 16:25 | Discharge Summary ---
Date of Service June 19, 2022 Admission HPI Per Admitting Provider The patient is a 37-year-old female with a past medical history including tobacco abuse, alcohol abuse, allergic rhinitis, genital warts, hypothyroidism, anxiety and fatigue. She presents to the emergency department as noted above. She was seen at the emergency department on 05/15/2022 for similar symptoms of left lower quadrant pain, with work-up including a CT scan of the abdomen pelvis with IV contrast, which showed question of cystitis, severe hepatic steatosis, hepatomegaly, L5-S1 degenerative disc disease. She reports that she has been drinking large amounts of water because it helps to make her stomach feel somewhat better. She also reports a 15 pound weight loss over the past few months Significant abnormal laboratories: Sodium 123, potassium 3.3, glucose 105, hemoglobin 12.8, hematocrit 36.2, AST 318, ALT 132, alk phos 328, total bilirubin 1.6, lipase 211. Principal Diagnosis Probable alcoholic gastritis, alcoholic steatohepatitis Discharge Exam In general she is awake and alert pleasant mildly anxious no distress. HEENT normocephalic atraumatic mucous membranes moist. Breathing unlabored no accessory muscle use good effort. Skin shows no rashes no pallor or icterus. Abdomen is soft some degree of diffuse abdominal tenderness different than yesterday worse left sided and left lowerno where does she have any guarding rebound or rigidity. Neuro shows no focal deficits or lateralizing signs. Discharge Data Allergies Allergy/AdvReac Type Severity Reaction Status Date / Time adhesive Allergy Intermediate SKIN Verified 05/15/22 19:32 BLISTER, TORN OFF SKIN WHEN REMOVED Consultations 06/17/22 04:34 ED Decision to Admit Stat 06/17/22 05:46 Consult Gastroenterology Routine 06/17/22 05:52 Consult Nephrology Routine Ordered Studies 06/17/22 05:30 CT abd pelvis wo con Stat CT chest diagnostic wo con Stat Hospital Course (1) Hematemesis: Continue Protonixagree with GI most likely alcohol gastritis. Probably would benefit from EGD at some point in the future. 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 Counseled on cessation. She notes that she drinks largely for stressbut does have other coping skills she could utilize. Encouraged her to do so. (3) Hyponatremia: Beer Poto jayleen. With removal of beer, the beer Poto jayleen appears to be improving. Better nutritional status would certainly be helpful as well (4) Weight loss, abnormal: Almost certainly relates to alcohol abuse/alcoholic gastritis, p.o. intake. CT scan is reassuring overall outside of fatty liver. Outpatient follow-up (5) Pancreatitis: more chemical than clinical, strongly suspect alcohol related (6) Tobacco abuse disorder: needs smoke cessation in addition to alcohol cessation (7) Hypothyroid: Continue levothyroxine 112 mcg daily (8) Hypokalemia: Repleted (9) Abnormal LFTs: alcoholic steatohepatitis. Bilirubin fortunately only mildly up at 1.3, and INR 1.1. (10) Anxiety: Encouraged nonalcoholic means of stress management (11) Right sided sciatica: with right-sided pelvic somatic dysfunction/piriformis dysfunction. OMT as above. Stretches taught. Encouraged her to follow-up with the DO physician in her PCPs office for further OMT. Voltaren gel across right piriformis 4 times daily. Doubt relates to her disc protrusion given that she seems to really have more low back pain with occasional numbness not necessarily a pattern fitting of a regular lumbar radiculopathy. Would give trial of OMT and stretching prior to managing as a radiculopathy per se Total Time Total Time Spent Total Time Spent (In Minutes): Greater than 30 Discharge Plan Discharge Items Patient Disposition: Home - Self-Care Reason For Visit: HYPONATREMIA, HEMATEMSIS, ABDOMINAL PAIN Discharge Diagnosis: gastritis, see below otherwise Activity: Resume your previous activity Non-emergency contact: Primary Care Provider Call non-emergency contact if: you have any medication questions and your symptoms worsen Follow-up/Referrals: Khadra Vallejo MD [Primary Care Provider] - 06/26/22 11:30 am Diet: Regular Addtl Attending Provider Instructions: Vomiting -Vomiting and blood were most consistent with gastritis -Gastritis is when the stomach lining is very irritatedthink like a "brush burn"where there is lots of little areas blood can ooze. Because her stomach cannot generate very many different pain signals, often we have stomach pain and nausea alongside of the vomiting and blood. -Fortunately everything appeared to be quite stable and improved with time and some medications to help your stomach heal over -Treating this moving forward, we will have you on a stomach medicine (Protonixpantoprazole) twice a day for the foreseeable future. This will allow your stomach to heal more quickly than it would on its ownbecause it makes the whole environment less acidic. Over a few months, the goal will be to drop it down from twice a day to once a day, and then hopefully get rid of it altogether. -While there was no immediate urgency to have your stomach scoped, it would definitely be reasonable to have a plug maker do a scope (EGD) sometime in the near future to ensure that things appear to be healing appropriately and that nothing else is going onthis can be set up with your PCP -As we discussed, the main things that would be causing your stomach to breakdown/have gastritis will be alcohol and ibuprofen. Alcohol tends to be very dehydrating to mucous membranes like her stomach liningso it tends to compromise it by having everything be real dry and trickled up; ibuprofen reduces production of the chemicals that are body uses to protect your stomach lining from acidallowing for faster breakdown that way. Given all of this, even more important than the Protonix to help your stomach heal, is avoiding the things that are causing the damage to begin with. To that end, it would be ideal for you to completely avoid alcohol and ibuprofen. Fatty liver -Drinking can definitely cause a lot of problems throughout the bodythe main 1 that you are showing is what is called "alcoholic steatohepatitis"what that means is that alcohol can really make our liver full of fat, and then sometimes that fatty liver can be inflamed. When it is, it is a risk for progressing to cirrhosis. Fortunately, the liver is a very remarkable organ, and as long as you do not "kill it" it can recover nicelyand currently there is nothing about your situation that looks like you have crossed a "point of no return". To that end, your PCP will continue to follow lab work, but with time and avoiding anything that is irritating to your liver (so in addition to avoiding alcohol, like we discussed, ibuprofen actually can inflame the liver some, as can Tylenol (acetaminophen)) it should recover quite nicely. I would recommend lab work related to your liver next week, and then periodically thereafter as things trend back to normal Alcohol abuse -As we discussed, it is very common for people to drink as a "self-medication" for stress managementbut unfortunately, while people will often feel a little bit better for a few hours when they are drunk, it really does nothing to actually fix the underlying stress. Your other stress coping skillsyour hobbies/distraction techniques/etc.will be way more effective in long-term management of the stress, and obviously do not have a negative impact on your health (in my experience, nothing causes more and more persistent stress than being chronically illwhich is unfortunately a bit of a cruel irony that happens when people drink to medicate for their stress/anxiety) -Really dive into your hobbies and distraction techniques for more "active stress management"if the stress/anxiety continue to be a major problem, it would be really helpful to get pipeline with a good counselor as well. Your PCP can also talk to you about possibly starting antidepressant medicines, but they tend to not make as big of a "dent" in the stress/anxiety as lifestyle measures/counseling/etc. Mild bone marrow suppression -Another common complication from alcohol is that it can start to suppress her bone marrow's ability to make new cellsyour counts are a little bit low, certainly not in a worrisome waybut certainly something that quitting alcohol would be beneficial for her. To help, we will have you on thiamine/folate for the foreseeable future, and your PCP can keep tabs on your counts, and follow-up labs for things like B12 and folic acid after you have been on replacement for a while; your labs back in December 2019 did appear to be a bit deficient on several things Inflamed pancreas -As yet another "fall out" from the alcohol, your pancreas appeared to be mildly inflamed. Fortunately this did not really seem to be a major flare, although it could have contributed to the nausea and vomiting as well. Again, medically the answer is simpleavoid alcohol and anti-inflammatories. Obviously carrying through with that is much more complicatedmuch more in line with managing the stress/anxiety Constipation -Until your bowels are moving more regularly, I would recommend that you stay on MiraLAXsomewhere between 13 capfuls a day to keep your bowels moving. (Certainly you can use more if neededbut I would want this to, under your PCPs direction) Low back pain -While you do have a disc bulge that on imaging could show the ability to pinch the nerve, your symptoms really fit much more with biomechanical (muscle and ligament) problems than the pinched nerve scenario -As we discussed and started working onthe center of your "biomechanical strain pattern" seems to be your right piriformis musclethe piriformis is the muscle t hat you took the picture of that I pulled up on [employer] images. It tends to be a common culprit for low back pain because when it is tight, it pulls on your sacrum"jamming up" your sacroiliac joint, and sometimes when the muscle is tight it can push on your sciatic nerve creating some of the numbness you are feeling. Far better than taking medications (which can be leading to some of the stomach/liver/pancreas issues) we will ask that you get pipelines for "OMT"hands-on manipulative medicine to work on the actual strain pattern. This should get things better, and if it does notthen it would be worth looking at whether or not the disc truly was the problem (again with the way you examined, and with your symptoms this seems unlikelybut if you are being worked on for a while and things are not getting better, then it might be worth thinking about)and if that was the casethen moving forward with low back injections. -Continue to use the Voltaren gel (topical diclofenac) across that right buttock/right piriformis regionlike we discussed, it does not kick in right away, it often takes 2 to 3 days of using 4 times a day for it to make a difference; which is annoying, but if you keep with it, I generally see it start to help with improvement on things. -Continue to do the stretches I demonstrated yesterday (where you push your right knee across your chest, feel it pulling across your buttock, and then pushed back against yourself to stretch the region)probably 5 repetitions in the morning/5 repetitions in the evening Pending Studies at Discharge: No Stand-Alone Forms: My ReClaims, Smoking Cessation Medications and DC Order Prescriptions: New diclofenac sodium [Voltaren Arthritis Pain] 1 % Gel 2 g EXT QID Qty: 100 3RF pantoprazole [Protonix] 40 mg tablet,delayed release (DR/EC) 40 mg PO BID Qty: 60 1RF cyanocobalamin (vitamin B-12) 1,000 mcg tablet 1,000 mcg PO DAILY Qty: 30 3RF thiamine HCl (vitamin B1) 100 mg tablet 200 mg PO DAILY Qty: 60 0RF folic acid 1 mg tablet 1 mg PO DAILY Qty: 30 0RF cholecalciferol (vitamin D3) [Vitamin D3] 50 mcg (2,000 unit) tablet 2,000 unit PO DAILY Qty: 30 3RF Continued levothyroxine 112 mcg tablet 112 mcg PO DAILY Qty: 90 1RF albuterol sulfate 90 mcg/actuation HFA aerosol inhaler 2 inh inhalation Q4H PRN (Reason: shortness of breath or wheezing) Qty: 6.7 0RF ondansetron 4 mg tablet,disintegrating 4 mg PO Q8H PRN (Reason: nausea and vomiting) Qty: 30 0RF Discontinued ibuprofen 600 mg tablet 600 mg PO Q8H PRN (Reason: Pain) Discharge Orders: Discharge Order (Routine); Ordered 06/19/22 Ordered By: Chris Cummings Admission Data Admit Date/Time: 06/17/22 05:11 Attending Provider: Chris Cummings Admit Provider: Edgar Hopkins Primary Care Provider: Khadra Vallejo Other Providers: Edgar Hopkins ; Marco Urbina Jr ; Nidia Andrade Other Interventions: Discharge Summary Assessment (RN) Last Done: 06/19/22 11:42 Coding Level of Care Code D/C DAY MANAGEMENT >30 MINS Diagnoses Hematemesis K92.0 Alcohol abuse F10.10 Hyponatremia E87.1 Weight loss, abnormal R63.4 Pancreatitis K85.90 Tobacco abuse disorder Z72.0 Hypothyroid E03.9 Hypothyroidism type: unspecified Hypokalemia E87.6 Abnormal LFTs R79.89 Anxiety F41.9 Right sided sciatica M54.31
[2022-06-20] MEDS ORDERED: GABAPENTIN 400 MG CAP PO SCH (06:00)
[2022-06-21] MEDS ORDERED: GABAPENTIN 400 MG CAP PO SCH (18:00)
== END 2022-06-19 13:58 | disposition home or self-care (01) | DRG 391 ==
LOC: ED 01:30 → SUATTDRO 05:11 → EDINP 05:11 → 2N 16:21

== ENCOUNTER 2022-09-24 18:32 | Inpatient (IN) ==
--- NOTE | 2022-09-24 19:06 | Emergency Department Note ---
History of Present Illness General Chief complaint: Leg Injury/Pain Stated complaint: L LEG PAIN Time Seen by Provider: 09/24/22 18:49 History of Present Illness Maximum Pain Intensity: 6 This is a 37-year-old female that presents to the emergency department via ambulance with complaints of "left leg pain, alcohol withdrawal". The patient notes that she has a history of low back issues. She notes pain from the left low back that radiates down the left leg. She notes that the pain changes location throughout the day and is not always in one location. She notes that over the past month they seem to have been worsening and she notes some ongoing tingling to the toes of the left foot over the past month. She also notes she cannot fully sterling her left ankle over the past month. She rates her overall pain is a 6/10. Patient notes that she also is also concerned that she is wit hdrawing from alcohol. She notes that she was supposed to attend [facility] to detox but notes that she was never picked up/transported to that facility. Patient denies any fevers or chills. Patient does note some increased urinary frequency. Home Medications Medication Instructions Recorded Confirmed Type gabapentin 600 mg tablet 600 mg PO TID PRN back pain #20 09/03/22 09/25/22 Rx tabs levothyroxine 112 mcg tablet 112 mcg PO DAILYBB 09/25/22 09/25/22 History Allergies Allergy/AdvReac Type Severity Reaction Status Date / Time adhesive Allergy Intermediate SKIN Verified 09/25/22 00:05 BLISTER, TORN OFF SKIN WHEN REMOVED Past Med/Surg History Medical History Anxiety Fatigue H/O ETOH abuse Hypothyroid Thyroid condition Tobacco abuse disorder Surgical History No pertinent past surgical history Family History Father Heart disease Colorectal cancer Myocardial infarction Denies family history of Ovarian cancer Prostate cancer Breast cancer Social History Smoking Status: Current every day smoker Tobacco Type: Cigarettes packs per day: 1; Cigarettes Per Day: 20; Second Hand Exposure: No; Hx Alcohol Use: Yes Alcohol type: beer Hx Substance Use: Yes Last Used Substance: Unknown Preferred Language: Kazakh Communication Ability: Effective Visual Impairment: No Limitations Hearing Ability: Normal 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 Beliefs That Will Affect Care: None marital status: Single Current Living Situation: Alone current occupational status: employed Feels Safe at Home: Yes Diet Comment: regular caffeine: Yes during the past year weight has: remained stable Dental Care, Regularly: No Physical Activity Frequency: 5-6 Times per Week Physical Activity Frequency Comment: active job Seatbelt Use: always Sunscreen Use: Yes Assistive Devices: Glasses Review of Systems A total of 10 systems reviewed and were otherwise negative Physical Exam Vital Signs Vital Signs - 24 hr 09/24/22 18:39 09/24/22 19:40 09/24/22 20:11 Temperature 36.9 C Temperature Source Temporal Artery Scan Pulse Rate 97 H Respiratory Rate 19 16 Respiratory Effort / Characteristics Non-Labored Spontaneous Non-Labored Spontaneous Non-Labored Respiratory Depth Normal Normal Normal Respiratory Pattern Regular Regular Regular Blood Pressure 115/85 Blood Pressure [Right Arm] 130/85 Blood Pressure Mean 95 Blood Pressure Mean [Right Arm] 100 Blood Pressure Position [Right Arm] Sitting Pulse Oximetry 96 95 Oxygen Delivery Method Room Air Room Air Room Air Sepsis Recent Fever Within 48 Hours No Sepsis New/Unexplained Change in Mental Status N/A Sepsis Action Taken by Nursing No Action Required VITAL SIGNS - Vital signs and triage nursing notes were reviewed. Stable and af ebrile. GENERAL - 37-year-old female appearing her stated age who is in no acute distress. Communicates well with provider and answers questions appropriately. SKIN - Without rashes. No meningeal or petechial rash. HEAD - NC/AT. EYES - PERRL with EOMI bilaterally. Sclera anicteric. EARS - No deformities of external structures noted on gross examination bilaterally. NOSE - Midline and without cyanosis. No epistaxis or purulent drainage noted. MOUTH/OROPHARYNX - Without perioral cyanosis. NECK - No nuchal rigidity. LUNGS - Chest wall symmetric without accessory muscle use, intercostals retr actions, or central cyanosis. Normal vesicular breath sounds CTA B/L. No wheezes, rales, or rhonchi appreciated. CARDIAC - RRR with S1/S2. No murmur, rubs, or gallops appreciated. ABDOMEN - Bowel sounds normoactive. No guarding or rigidity. No tenderness. MUSCULOSKELETALintegument is within normal limits overlying the L-spine region. No step-off deformities. EXTREMITIES - No clubbing or peripheral cyanosis. No pretibial edema present. Patient able to plantarflex and dorsiflex the bilateral lower extremities at the feet/ankle location actively. Patient does note some discomfort/tenderness palpation overlying the left lateral ankle joint without evidence of soft tissue abnormality or abnormality to inspection. +5/5 strength noted in UE/LE bilaterally. NEUROLOGIC - Cranial nerves II through XII grossly intact. PSYCH - A&Ox3 and cooperates fully with examiner. Pt is very pleasant and interacts well with examiner. Course Administered Medications Discontinued Medications Chlordiazepoxide HCl (Chlordiazepoxide Hcl 25 Mg Cap) 50 mg PO NOW ONE Stop: 09/24/22 19:33 Last Admin: 09/24/22 19:45 Dose: 50 mg Documented By: MAGGIE Multivitamins 10 ml/ Thiamine HCl 100 mg/ Folic Acid 1 mg/Sodium Chloride 1,011.2 mls @ 500 mls/hr IV .Q2H2M ONE Stop: 09/24/22 21:33 Last Infusion: 09/24/22 22:15 Dose: 0 mls/hr Documented By: Admin: 09/24/22 20:08 Dose: 500 mls/hr Documented By: MAGGIE Lorazepam (Lorazepam 2 Mg/1 Ml Vial) 1 mg IV NOW STA Stop: 09/24/22 23:43 Last Admin: 09/24/22 23:55 Dose: 1 mg Documented By: NOEMI Medical Decision Making Laboratory Data 09/24/22 19:14 09/24/22 20:39 Lab Results 09/24/22 09/24/22 09/24/22 Range/Units 19:14 19:14 19:14 WBC 3.50 L (4.8-10.8) K/ul RBC 4.63 (4.20-5.40) M/uL Hgb 13.1 (12.0-16.0) g/dl Hct 39.1 (37.0-47.0) % MCV 84.4 (80.0-100.0) fL MCH 28.3 (25.0-34.0) pg MCHC 33.5 (32.0-36.0) g/dL RDW Std Deviation 60.7 H (36.4-46.3) fL RDW Coeff of Nico 19.9 H (11.5-14.5) % Plt Count 166 (130-400) K/uL MPV 9.3 L (9.4-12.4) fL Immature Gran % (Auto) 0.3 % Neut % (Auto) 48.0 % Lymph % (Auto) 39.4 % Hamblen % (Auto) 8.6 % Eos % (Auto) 2.0 % Baso % (Auto) 1.7 % Neut # (Auto) 1.68 (1.40-6.50) K/uL Lymph # (Auto) 1.38 (1.2-3.4) K/uL Hamblen # (Auto) 0.30 (0.11-0.59) K/uL Eos # (Auto) 0.07 (0-0.50) K/uL Baso # (Auto) 0.06 (0-0.2) K/uL Immature Gran # (Auto) 0.01 (0.01-0.20) K/uL Sodium 129 L (136-145) mmol/L Potassium TNP Chloride 96 L (98-107) mmol/L Carbon Dioxide 18 L (21-32) mmol/L Anion Gap 15 H (3-11) BUN 4 L (6-23) mg/dl Creatinine 0.73 (0.6-1.2) mg/dl Est Cr Clr Drug Dosing 107.2 ml/min Est GFR ( Amer) 121.1 ml/min Est GFR (Non-Af Amer) 104.5 ml/min BUN/Creatinine Ratio 5.5 L (10-20) Glucose 162 H (70-99(Fasting)) mg/dl Calcium 9.3 (8.5-10.1) mg/dl Total Bilirubin 0.6 (0.2-1.0) mg/dl AST TNP ALT 43 (7-52) U/L Alkaline Phosphatase 126 H (34-104) U/L Total Protein 7.2 (6.0-8.3) gm/dl Albumin 4.3 (3.4-5.0) gm/dl Globulin 2.9 (2.5-4.0) gm/dl Albumin/Globulin Ratio 1.5 (0.9-2) HCG, Qual Negative (Negative) Urine Color Urine Appearance (Clear) Urine pH (4.5-7.5) Ur Specific [employer] (1.000-1.030) Urine Protein (Negative) Urine Glucose (UA) (Negative) Urine Ketones (Negative) Urine Blood (Negative) Urine Nitrite (Negative) Urine Bilirubin (Negative) Urine Urobilinogen (Negative) Ur Leukocyte Esterase (Negative) Ethyl Alcohol mg/dL (<10.0) mg/dl SARS-CoV-2, RNA, NAAT (NEGATIVE) 09/24/22 09/24/22 09/24/22 Range/Units 19:27 19:27 19:27 WBC (4.8-10.8) K/ul RBC (4.20-5.40) M/uL Hgb (12.0-16.0) g/dl Hct (37.0-47.0) % MCV (80.0-100.0) fL MCH (25.0-34.0) pg MCHC (32.0-36.0) g/dL RDW Std Deviation (36.4-46.3) fL RDW Coeff of Nico (11.5-14.5) % Plt Count (130-400) K/uL MPV (9.4-12.4) fL Immature Gran % (Auto) % Neut % (Auto) % Lymph % (Auto) % Hamblen % (Auto) % Eos % (Auto) % Baso % (Auto) % Neut # (Auto) (1.40-6.50) K/uL Lymph # (Auto) (1.2-3.4) K/uL Hamblen # (Auto) (0.11-0.59) K/uL Eos # (Auto) (0-0.50) K/uL Baso # (Auto) (0-0.2) K/uL Immature Gran # (Auto) (0.01-0.20) K/uL Sodium (136-145) mmol/L Potassium Chloride (98-107) mmol/L Carbon Dioxide (21-32) mmol/L Anion Gap (3-11) BUN (6-23) mg/dl Creatinine (0.6-1.2) mg/dl Est Cr Clr Drug Dosing ml/min Est GFR ( Amer) ml/min Est GFR (Non-Af Amer) ml/min BUN/Creatinine Ratio (10-20) Glucose (70-99(Fasting)) mg/dl Calcium (8.5-10.1) mg/dl Total Bilirubin (0.2-1.0) mg/dl AST ALT (7-52) U/L Alkaline Phosphatase (34-104) U/L Total Protein (6.0-8.3) gm/dl Albumin (3.4-5.0) gm/dl Globulin (2.5-4.0) gm/dl Albumin/Globulin Ratio (0.9-2) HCG, Qual (Negative) Urine Color Yellow Urine Appearance Clear (Clear) Urine pH 5.5 (4.5-7.5) Ur Specific [employer] 1.006 (1.000-1.030) Urine Protein Negative (Negative) Urine Glucose (UA) Negative (Negative) Urine Ketones Negative (Negative) Urine Blood Negative (Negative) Urine Nitrite Negative (Negative) Urine Bilirubin Negative (Negative) Urine Urobilinogen Negative (Negative) Ur Leukocyte Esterase Negative (Negative) Ethyl Alcohol mg/dL 122.2 H (<10.0) mg/dl SARS-CoV-2, RNA, NAAT NEGATIVE (NEGATIVE) 09/24/22 Range/Units 20:39 WBC (4.8-10.8) K/ul RBC (4.20-5.40) M/uL Hgb (12.0-16.0) g/dl Hct (37.0-47.0) % MCV (80.0-100.0) fL MCH (25.0-34.0) pg MCHC (32.0-36.0) g/dL RDW Std Deviation (36.4-46.3) fL RDW Coeff of Nico (11.5-14.5) % Plt Count (130-400) K/uL MPV (9.4-12.4) fL Immature Gran % (Auto) % Neut % (Auto) % Lymph % (Auto) % Hamblen % (Auto) % Eos % (Auto) % Baso % (Auto) % Neut # (Auto) (1.40-6.50) K/uL Lymph # (Auto) (1.2-3.4) K/uL Hamblen # (Auto) (0.11-0.59) K/uL Eos # (Auto) (0-0.50) K/uL Baso # (Auto) (0-0.2) K/uL Immature Gran # (Auto) (0.01-0.20) K/uL Sodium (136-145) mmol/L Potassium 3.5 Chloride (98-107) mmol/L Carbon Dioxide (21-32) mmol/L Anion Gap (3-11) BUN (6-23) mg/dl Creatinine (0.6-1.2) mg/dl Est Cr Clr Drug Dosing ml/min Est GFR ( Amer) ml/min Est GFR (Non-Af Amer) ml/min BUN/Creatinine Ratio (10-20) Glucose (70-99(Fasting)) mg/dl Calcium (8.5-10.1) mg/dl Total Bilirubin (0.2-1.0) mg/dl AST 100 H ALT (7-52) U/L Alkaline Phosphatase (34-104) U/L Total Protein (6.0-8.3) gm/dl Albumin (3.4-5.0) gm/dl Globulin (2.5-4.0) gm/dl Albumin/Globulin Ratio (0.9-2) HCG, Qual (Negative) Urine Color Urine Appearance (Clear) Urine pH (4.5-7.5) Ur Specific [employer] (1.000-1.030) Urine Protein (Negative) Urine Glucose (UA) (Negative) Urine Ketones (Negative) Urine Blood (Negative) Urine Nitrite (Negative) Urine Bilirubin (Negative) Urine Urobilinogen (Negative) Ur Leukocyte Esterase (Negative) Ethyl Alcohol mg/dL (<10.0) mg/dl SARS-CoV-2, RNA, NAAT (NEGATIVE) Imaging Data My Impression: per my interpretation the patient's L-spine x-rays are without significant change compared to 09/05/2022. MDM Narrative Patient was seen and evaluated as above in room D04. Review was performed of triage nursing notes and vital signs. I did review pertinent previous visits and patient history. After obtaining a thorough history and physical examination the above work up was performed. Patient presents today via EMS for evaluation of low back pain with pain radiating down the left leg consistent with lumbar radic ulopathy as well as for evaluation of alcohol withdrawal. Per review of the EMR it does appear that the patient may have experienced an alcohol withdrawal seizure a few weeks ago of which she was assessed for at that time. This is the patient's fourth visit here to the ED in the past 30 days. On examination the patient is clinically well-appearing but does appear to be experiencing alcohol withdrawal and does have some upper extremity tremors noted particularly when she is holding her hands outstretched. The patient subjectively notes some tingling in the left foot region however on examination she is able to appreciate palpation of the bilateral feet. She is able to plantarflex and dorsiflex the bilateral feet/ankle regions. No weakness appreciated on examination. DTRs within normal limits in the lower extremities. There is slight decreased ability to fully actively sterling the left ankle compared to the right. With active eversion of the left foot/ankle she notes this movement does cause some discomfort in the left lateral ankle, particularly with palpation of the left lateral ankle joint but there is no overlying bruising or evidence of recent traumatic process. No neurovascular deficit. There is overall preserved plantarflexion and dorsiflexion bilaterally of the feet/ankles. No infectious symptoms. No fevers. Options of care were discussed with the patient. IV access was established. Labs were drawn. She notes that she normally drinks about 8-10 beers per day. Last drink was yesterday evening. She is concerned that she is experiencing alcohol withdrawal. Labs were drawn. There is leukopenia 3.50. No anemia. There is hyponatremia at 129. Anion gap 15. Glucose 162. AST 100. hCG negative. Pt able to provide clean catch urine sample. Urinalysis negative. Alcohol level 122. COVID testing negative. Alcohol withdrawal protocol orders placed. Orders were initially placed for L-spine imaging however upon review of her previous L-spine images here in the EMR, I did elect to change the order to L-spine x-rays to initiate the work-up and also treat the patient for her alcohol withdrawal. Per my interpretation the L-spine radiographs are without significant change compared to radiographs obtained on 09/05/2022. I do not believe that the patient requires advanced imaging of the L-spine at this time here in the emergency department however this may be warranted at a later time depending on clinical course. At this time I do believe the patient would benefit from inpatient management for further evaluation and management of her suspected alcohol withdrawal as well as her low back pain/left sided radiculopathy. At this time there is no evidence clinically of cauda equina syndrome. I do not suspect epidural abscess or epidural hematoma. I discussed the case with the hospitalist. Patient amenable to plan of care. Please refer to further documentation regarding her stay. GCS: 15 In the evaluation and treatment of this patient the following differential diagnosis entertained: Fracture, dislocation, subluxation, cauda equina syndrome, AAA, diverticulitis, appendicitis, torsion, osteomyelitis, piriformis syndrome, strain, sprain, among others. Impression & Plan Alcohol use with withdrawal, Hyponatremia, Abnormal LFTs, Left lumbar radiculopathy Discharge Plan Visit Data Chief Complaint: Leg Injury/Pain Stated Complaint: L LEG PAIN ED Provider: Neville Nuñez ED Midlevel Provider: Blade Tony Discharge Problem: Alcohol use with withdrawal, Hyponatremia, Abnormal LFTs, Left lumbar radiculopathy Patient Disposition: Admitted As Inpatient Condition: Good Discharge Instructions Interventions: ED Discharge Assessment Last Done: 09/25/22 00:18
[2022-09-24] MEDS ORDERED: MULTI-VITAMIN INFUSION 10 ML, THIAMINE HCL 100 MG, FOLIC ACID 1 MG in SODIUM CHLORIDE 0... IV ONE (19:32)
[2022-09-24] MEDS ORDERED: chlordiazePOXIDE HCl 25 MG CAP PO ONE (19:32)
[2022-09-24] MEDS ORDERED: LORazepam 2 MG/1 ML VIAL IV PRN ×4 (19:32)
[2022-09-24] MEDS ORDERED: Ativan IV Alcohol Withdrawal--Active Protocol IV PRN (19:32)
[2022-09-24 20:05] LABS: Basophils # (auto) 0.06 K/uL (0-0.2); Basophils % (auto) 1.7 %; Eosinophils # (auto) 0.07 K/uL (0-0.50); Hematocrit (blood only) 39.1 % (37.0-47.0); Hemoglobin 13.1 g/dl (12.0-16.0); Immature Granulocytes # (auto) 0.01 K/uL (0.01-0.20); Immature Granulocytes % (auto) 0.3 %; Lymphocytes # (auto) 1.38 K/uL (1.2-3.4); Lymphocytes % (auto) 39.4 %; Mean Corpuscular Hemoglobin 28.3 pg (25.0-34.0); Mean Corpuscular Hgb Conc 33.5 g/dL (32.0-36.0); Mean Corpuscular Volume 84.4 fL (80.0-100.0); Mean Platelet Volume 9.3 fL (9.4-12.4); Monocytes % (auto) 8.6 %; Neutrophils # (auto) 1.68 K/uL (1.40-6.50); Platelet Count 166 K/uL (130-400); RDW Coefficient of Variation 19.9 % (11.5-14.5); RDW Standard Deviation 60.7 fL (36.4-46.3); Red Blood Count 4.63 M/uL (4.20-5.40)
[2022-09-24 20:06] LABS: Appearance Urine Clear (Clear); Bilirubin Urine Negative (Negative); Blood Urine Negative (Negative); Color Urine Yellow; Glucose Urine UA Negative (Negative); Ketones Urine Negative (Negative); Leukocyte Esterase Urine Negative (Negative); Nitrite Urine Negative (Negative); Protein Urine Negative (Negative); Specific Gravity Urine 1.006 (1.000-1.030); Urobilinogen Urine Negative (Negative); pH Urine 5.5 (4.5-7.5)
[2022-09-24 20:26] LABS: Alanine Aminotransferase 43 U/L (7-52); Albumin Globulin Ratio 1.5 (0.9-2); Albumin Level 4.3 gm/dl (3.4-5.0); Alkaline Phosphatase 126 U/L (34-104); Anion Gap 15 (3-11); BUN Creatinine Ratio 5.5 (10-20); Bilirubin,Total 0.6 mg/dl (0.2-1.0); Blood Urea Nitrogen 4 mg/dl (6-23); Calcium 9.3 mg/dl (8.5-10.1); Carbon Dioxide 18 mmol/L (21-32); Chloride 96 mmol/L (98-107); Creatinine Clr Calc Pharmacy 107.2 ml/min; Est GFR (African American) 121.1 ml/min; Est GFR (Non-African American) 104.5 ml/min; Globulin 2.9 gm/dl (2.5-4.0); Glucose 162 mg/dl (70-99(Fasting)); Sodium 129 mmol/L (136-145); Total Protein 7.2 gm/dl (6.0-8.3)
[2022-09-24 20:53] LABS: Pregnancy Test, Serum Negative (Negative)
[2022-09-24 22:06] LABS: Potassium 3.5 mmol/L (3.5-5.1)
--- NOTE | 2022-09-24 22:12 | History & Physical Report ---
Patient seen and examined. I agree with the history and physical and the plan as outlined in the resident's note. Date of Service September 24, 2022 Assessment & Plan (1) Alcohol withdrawal: (2) Chronic hyponatremia: (3) Alcohol abuse: (4) Hypothyroid: (5) Low back pain: Plan Ameena Mckeon is a 37F with history of chronic hyponatremia, pancreatitis, tobacco abuse disorder, alcohol abuse, sciatica, hypothyroidism, and anxiety to presents for evaluation of leg spasms and withdrawal symptoms. She is being admitted for management of alcohol withdrawal. Acute Alcohol Withdrawal - Patient presenting with alcohol withdrawal symptoms (tremulousness, spasms, hallucinations) - EtOH level on admission 122.2 - Patient endorses drinking 8-10 alcoholic beverages per day - Patient has history of Alcohol Withdrawal seizures - Patient received Librium and Vitamin/Thiamin/Folic Acid in NSS (1L) in ER, PRN Attivan ordered - Continue AWSS protocol, patient desirous of detox during admission - CM consulted for discharge planning Chronic Low Back Pain/Sciatica - CT 01/2022: * 1. Disc protrusion/herniation at L5-S1 with superior migration of a disc fragment and encroachment upon the neural foramen bilaterally at this level. * 2. Bulging annulus at L4-5. * 3. No acute osseous pathology. - Multiple negative XR in last month - No saddle anesthesia on exam, bilateral straight leg raise negative - Patient endorses new onset urinary and bowel incontinence - Urinalysis ordered - Consider MRI in AM if evidence of incontinence and negative UA Chronic Hyponatremia - Currently 129 (patient's baseline appears to be 131-132) - Patient received Vitamin Bag w/ NSS - Patient euvolemic on exam - Ordered Urine Na - Repeat CMP in AM - Continue to monitor Hypothyroidism - Continue home dose Levothyroxine Plan: AWSS Protocol FEN: Regular Code status: Full Code DVT ppx: Lovenox Isolation: None Dispo:Med/Tele History of Present Illness Chief Complaint: Leg Pain Primary Care Provider: Khadra Vallejo MD Ameena Mckeon is a 37F with history of chronic hyponatremia, pancreatitis, tobacco abuse disorder, alcohol abuse, sciatica, hypothyroidism, and anxiety to presents for evaluation of leg spasms and withdrawal symptoms. She is being admitted for management of alcohol withdrawal. Patient notes that she came into the ER today because she was experiencing 'withdrawal symptoms' for the last two days. She notes that her hands have been very shaky and that she has been having spasms in her legs, much worse in the left leg. She also endorses experiencing auditory and visual hallucinations. Patient notes that she normally drinks 8-10 Beers per day and has been drinking at least this many for the last month. She also has smoked 1 PPD of cigarettes for the last 22 years. Patient was seen in the ER 2 weeks ago for a suspected, non-witnessed, alcohol withdrawal seizure. Patient has a chronic history of left lumbar back pain w/ associated sciatica. She has been seen in the ER 3 times in the last month for back pain, each evaluation has been unrevealing. Patient notes that she manages her pain with Ibuprofen at home, but it does not help. She is most concerned about the new muscle spasms that she is having in her left leg. She denies saddle anesthesia or leg weakness, but notes that she is walking funny d/t the spasms. She also endorses 2-3 days of bowel/bladder incontinence. Patient was planned to go to [facility] for detox/rehab 2 weeks ago, she notes that she was never picked up to go to treatment. She notes she is willing to receive rehabilitation, but she would prefer to detox here. She denies any chest pain, shortness of breath, abdominal pain, or headaches. ER Course: Librium + Thiamine/Vitamins/NSS 1L Allergies Allergy/AdvReac Type Severity Reaction Status Date / Time adhesive Allergy Intermediate SKIN Verified 09/03/22 16:14 BLISTER, TORN OFF SKIN WHEN REMOVED Home Medications Medication Instructions Recorded Confirmed Type levothyroxine 112 mcg tablet 112 mcg PO DAILY #90 tabs 02/22/22 09/03/22 Rx gabapentin 600 mg tablet 600 mg PO TID PRN back pain #20 09/03/22 Rx tabs Past Med/Surg History Medical History Anxiety Fatigue H/O ETOH abuse Hypothyroid Thyroid condition Tobacco abuse disorder Surgical History No pertinent past surgical history Family History Father Heart disease Colorectal cancer Myocardial infarction Denies family history of Ovarian cancer Prostate cancer Breast cancer Social History Smoking Status: Current every day smoker Tobacco Type: Cigarettes packs per day: 1; Cigarettes Per Day: 20; Second Hand Exposure: No; Hx Alcohol Use: Yes Alcohol type: beer Hx Substance Use: Yes Last Used Substance: Unknown Preferred Language: Thai Communication Ability: Effective Visual Impairment: No Limitations Hearing Ability: Normal 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 Beliefs That Will Affect Care: None marital status: Single Current Living Situation: Alone current occupational status: employed Feels Safe at Home: Yes Diet Comment: regular caffeine: Yes during the past year weight has: remained stable Dental Care, Regularly: No Physical Activity Frequency: 5-6 Times per Week Physical Activity Frequency Comment: active job Seatbelt Use: always Sunscreen Use: Yes Assistive Devices: Glasses Review of Systems Review of Systems: As per HPI Physical Exam Physical Exam: Gen: NAD, interactive HEENT: Supple, no LAD, no thyromegaly, no JVD Resp:Non-labored, bilateral inspiratory and expiratory wheezing, no rhonchi/rales CV:RRR, normal S1/S2, no M/R/G Abd: Soft, non-distended, no TTP, normoactive bowels, no masses Extr: 2+ dp bilaterally, no edema, straight leg raise negative bilaterally, sensation intact and symmetric bilaterally, TTP of right hip and lumbar spine, appreciable tremulousness of UE and LE (UE > LE) Skin: No rashes lesions or erythema Results & Data Results & Data ([facility]) Vital Signs (Past 12 Hours) Vital Signs Temp Pulse Resp BP BP Pulse Ox O2 Del Method 09/24/22 20:11 16 130/85 95 Room Air 09/24/22 19:40 Room Air 09/24/22 18:39 36.9 C 97 H 19 115/85 96 Room Air Resident Activity Tracking Resident Involvement: Resident Care Provided Care Provided: Adult Hospital Medicine (1) Alcohol withdrawal Complication of substance-induced condition: uncomplicated Qualified Code(s): F10.230 - Alcohol dependence with withdrawal, uncomplicated (4) Hypothyroid Hypothyroidism type: unspecified Qualified Code(s): E03.9 - Hypothyroidism, unspecified (5) Low back pain Back pain laterality: unspecified Chronicity: acute Sciatica presence: without sciatica Qualified Code(s): M54.50 - Low back pain, unspecified
[2022-09-24] MEDS ORDERED: LORazepam 2 MG/1 ML VIAL IV STA (23:42)
[2022-09-25 01:08] LABS: Appearance Urine Clear (Clear); Bilirubin Urine Negative (Negative); Blood Urine Negative (Negative); Color Urine Yellow; Glucose Urine UA Negative (Negative); Ketones Urine Negative (Negative); Leukocyte Esterase Urine Negative (Negative); Nitrite Urine Negative (Negative); Protein Urine Negative (Negative); Specific Gravity Urine 1.006 (1.000-1.030); Urobilinogen Urine Negative (Negative); pH Urine 5.5 (4.5-7.5)
[2022-09-25] MEDS: KETOROLAC TROMETHAMINE 15 MG/ML VIAL IV PRN ×3 (02:42→20:46)
[2022-09-25] MEDS: LEVOTHYROXINE SODIUM 112 MCG TABLET PO SCH (04:41)
[2022-09-25 06:35] LABS: Hematocrit (blood only) 35.3 % (37.0-47.0); Hemoglobin 11.5 g/dl (12.0-16.0); Mean Corpuscular Hemoglobin 27.9 pg (25.0-34.0); Mean Corpuscular Hgb Conc 32.6 g/dL (32.0-36.0); Mean Corpuscular Volume 85.7 fL (80.0-100.0); Mean Platelet Volume 9.2 fL (9.4-12.4); Platelet Count 142 K/uL (130-400); RDW Coefficient of Variation 19.9 % (11.5-14.5); RDW Standard Deviation 62.3 fL (36.4-46.3); Red Blood Count 4.12 M/uL (4.20-5.40); White Blood Count 4.84 K/ul (4.8-10.8)
[2022-09-25 06:56] LABS: Albumin Globulin Ratio 1.5 (0.9-2); Albumin Level 3.7 gm/dl (3.4-5.0); BUN Creatinine Ratio 8.1 (10-20); Bilirubin,Total 0.8 mg/dl (0.2-1.0); Calcium 9.4 mg/dl (8.5-10.1); Creatinine Clr Calc Pharmacy 103.7 ml/min; Est GFR (African American) 119.1 ml/min; Est GFR (Non-African American) 102.8 ml/min; Globulin 2.4 gm/dl (2.5-4.0); Potassium 3.5 mmol/L (3.5-5.1); Total Protein 6.1 gm/dl (6.0-8.3)
--- NOTE | 2022-09-25 07:59 | XRay Report ---
XR lumbar spine min 4V routine CLINICAL HISTORY: low back pain TECHNIQUE: 5 views of the lumbar spine were obtained. Comparison: Comparison is made to lumbar spine radiographs 09/05/2022 FINDINGS: There is no evidence of an acute fracture. Minimal disc space narrowing is seen at L5-S1, unchanged. The alignment is normal. Right upper quadrant cholecystomy clips is seen. IMPRESSION: No acute fracture or subluxation. ACT 112: Negative or not required by law. Electronically signed by: Colt Meyer M.D. 09/25/2022 7:58 AM
[2022-09-25] MEDS: ENOXAPARIN INJ 40 MG/0.4 ML SYR SQ SCH (08:46)
[2022-09-25] MEDS: THIAMINE HCL 100 MG TAB PO SCH (08:46)
[2022-09-25] MEDS: FOLIC ACID 1 MG TAB PO SCH (08:46)
--- NOTE | 2022-09-25 12:38 | Hospitalist Progress Note ---
Date of Service September 25, 2022 Assessment & Plan (1) Alcohol use with withdrawal: Plan: patient is a chronic alcoholic, admitted to the hospital and found to be in withdrawal. Last drink was the day of presentation. beverage of choice is beer By her own admission, she has had withdrawal seizures in the past -Today, still some tremors on exam -Will continue [facility] protocol -Received bananna bag -Maintain fall and seizure precaution (2) Chronic hyponatremia: Plan: Most likely due to beer potomania serum sodium close to baseline monitor (3) Abnormal LFTs: Plan: Due to alcohol abuse Monitor (4) Alcohol abuse: Plan: patient has been advised to quit alcohol Plan Continue hospitalization Admission and Anticipated Discharge Date Admission Date: September 24, 2022 Subjective patient seen and examined, still has some tremors Review of Systems Review of Systems: All systems reviewed are negative, apart from the ones contained in the history. Physical Exam Physical Exam: The patient is awake, alert and oriented 3, well developed and well nourished, normocephalic and atraumatic, lying in bed and in no acute distress. HEENT--PERRL, EOMI, mucous membranes and oropharynx mildly dry Neck--supple. No JVD. No bruits. Thyroid normal, trachea midline, no adenopathy. Heart--normal S1 and S2. No murmurs, rubs or gallops. Lungs--clear bilaterally, no respiratory distress, no accessory muscle use. Abdomen--normal bowel sounds and soft. Mild epigastric and left sided abdominal pain Extremities--no cyanosis or clubbing. No edema. Dermatologic--normal skin turgor, normal color, no abnormal lymph nodes, no rash. Neurologic--cranial nerves II through XII grossly intact. Tremors Rheumatologic--normal range of motion. Psychiatric--normal affect. Results & Data Results & Data ([facility]) Vital Signs (Past 12 Hours) Vital Signs Temp Pulse Pulse Resp BP Pulse Ox Pulse Ox 09/25/22 10:59 98.4 F 83 17 111/66 98 09/25/22 08:40 09/25/22 06:11 88 09/25/22 07:09 98.2 F 87 18 114/78 94 09/25/22 03:01 98.1 F 87 16 119/86 96 09/25/22 01:07 98.2 F 83 12 110/73 96 09/25/22 01:06 09/25/22 00:37 98.2 F 83 20 110/73 96 09/25/22 00:37 96 O2 Del Method O2 Del Method 09/25/22 10:59 Room Air 09/25/22 08:40 Room Air 09/25/22 06:11 09/25/22 07:09 Room Air 09/25/22 03:01 Room Air 09/25/22 01:07 Room Air 09/25/22 01:06 Room Air 09/25/22 00:37 Room Air 09/25/22 00:37 Room Air PG Care Time/CCT Total # of Minutes Spent Total Time Spent with Patient: Total time spent is greater than 50% in coordination of care (as documented) at patient's floor/unit and/or counseling patient: Coding Level of Care Code 41692 SUB INP/OBS CARE 2/35MIN Diagnoses Alcohol use with withdrawal F10.939 Chronic hyponatremia E87.1 Abnormal LFTs R79.89 Alcohol abuse F10.10 Time Spent (min) 35
[2022-09-25] MEDS ORDERED: chlordiazePOXIDE HCl 25 MG CAP PO ONE (14:32)
[2022-09-25] MEDS ORDERED: ALBUTEROL HFA 8 GM INHALER INH PRN (20:06)
[2022-09-25] MEDS: chlordiazePOXIDE HCl 25 MG CAP PO SCH (20:46)
[2022-09-26] MEDS ORDERED: SODIUM CHLORIDE 0.9% 500 ML IV SCH (03:45)
[2022-09-26] MEDS: LEVOTHYROXINE SODIUM 112 MCG TABLET PO SCH (06:03)
[2022-09-26 06:42] LABS: Hematocrit (blood only) 31.4 % (37.0-47.0); Hemoglobin 10.4 g/dl (12.0-16.0); Mean Corpuscular Hemoglobin 28.3 pg (25.0-34.0); Mean Corpuscular Hgb Conc 33.1 g/dL (32.0-36.0); Mean Corpuscular Volume 85.6 fL (80.0-100.0); Mean Platelet Volume 9.6 fL (9.4-12.4); Platelet Count 105 K/uL (130-400); RDW Coefficient of Variation 19.9 % (11.5-14.5); RDW Standard Deviation 61.7 fL (36.4-46.3); Red Blood Count 3.67 M/uL (4.20-5.40); White Blood Count 2.97 K/ul (4.8-10.8)
[2022-09-26 07:04] LABS: BUN Creatinine Ratio 7.4 (10-20); Calcium 8.9 mg/dl (8.5-10.1); Creatinine Clr Calc Pharmacy 118.8 ml/min; Est GFR (African American) 128.6 ml/min; Potassium 3.8 mmol/L (3.5-5.1)
--- NOTE | 2022-09-26 07:35 | XRay Report ---
LEFT ANKLE 3 VIEWS CLINICAL HISTORY: Foot drop. FINDINGS: 3 views of the left ankle are obtained. No prior studies are available for comparison at th e time of dictation. The skeletal structures are well mineralized. No fracture is seen. The ankle mor tise is intact. There is no joint effusion. There is generalized atrophy of the overlying soft tissue s. IMPRESSION: No acute bony abnormality is identified. Electronically signed by: Trey Dhaliwal M.D. 09/26/2022 7:33 AM
[2022-09-26] MEDS: FOLIC ACID 1 MG TAB PO SCH (08:05)
[2022-09-26] MEDS: THIAMINE HCL 100 MG TAB PO SCH (08:05)
[2022-09-26] MEDS: NICOTINE 21 MG/24 HR TDSY TD SCH (08:05)
[2022-09-26] MEDS: ENOXAPARIN INJ 40 MG/0.4 ML SYR SQ SCH (08:06)
[2022-09-26] MEDS: chlordiazePOXIDE HCl 25 MG CAP PO SCH ×3 (08:07→20:21)
[2022-09-26] MEDS: KETOROLAC TROMETHAMINE 15 MG/ML VIAL IV PRN (08:12)
[2022-09-26] MEDS: POLYETHYLENE (MIRALAX) 17 GM PACK PO SCH (11:48)
--- NOTE | 2022-09-26 13:03 | Hospitalist Progress Note ---
Date of Service September 26, 2022 Assessment & Plan (1) Alcohol use with withdrawal: Plan: patient is a chronic alcoholic, admitted to the hospital and found to be in withdrawal. Last drink was the day of presentation. beverage of choice is beer By her own admission, she has had withdrawal seizures in the past -Today, still some tremors on exam, but much improved -Will continue [facility] protocol -Received banana bag -Maintain fall and seizure precaution (2) Chronic hyponatremia: Plan: Most likely due to beer potomania serum sodium close to baseline monitor (3) Abnormal LFTs: Plan: Due to alcohol abuse Monitor (4) Alcohol abuse: Plan: patient has been advised to quit alcohol (5) Foot drop: Plan: Left foot drop foot x ray did not show any acute pathology Lumbar x ray showed only mild degenrative changes ortho on consult, may need a boot Plan Continue hospitalization, hopefully d/c in the nexxt 24 -48 hrs Admission and Anticipated Discharge Date Admission Date: September 24, 2022 Subjective patient seen and examined, still has some tremors and foot drop Review of Systems Review of Systems: All systems reviewed are negative, apart from the ones contained in the history. Physical Exam Physical Exam: The patient is awake, alert and oriented 3, well developed and well nourished, normocephalic and atraumatic, lying in bed and in no acute distress. HEENT--PERRL, EOMI, mucous membranes and oropharynx mildly dry Neck--supple. No JVD. No bruits. Thyroid normal, trachea midline, no adenopathy. Heart--normal S1 and S2. No murmurs, rubs or gallops. Lungs--clear bilaterally, no respiratory distress, no accessory muscle use. Abdomen--normal bowel sounds and soft. Mild epigastric and left sided abdominal pain Extremities--no cyanosis or clubbing. No edema. Dermatologic--normal skin turgor, normal color, no abnormal lymph nodes, no rash. Neurologic--cranial nerves II through XII grossly intact. Tremors Rheumatologic--normal range of motion. Psychiatric--normal affect. Results & Data Results & Data ([facility]) Vital Signs (Past 12 Hours) Vital Signs Temp Pulse Pulse Resp BP Pulse Ox O2 Del Method 09/26/22 07:30 97.9 F 74 17 115/73 98 Room Air 09/26/22 12:07 97.9 F 78 18 127/86 100 Room Air 09/26/22 08:00 76 09/26/22 08:00 Room Air 09/26/22 03:32 81 92/25 L 09/26/22 03:00 98.1 F 74 20 89/57 L 95 Room Air PG Care Time/CCT Total # of Minutes Spent Total Time Spent with Patient: Total time spent is greater than 50% in coordination of care (as documented) at patient's floor/unit and/or counseling patient: Coding Level of Care Code 49272 SUB INP/OBS CARE 2/35MIN Diagnoses Alcohol use with withdrawal F10.939 Chronic hyponatremia E87.1 Abnormal LFTs R79.89 Alcohol abuse F10.10 Foot drop M21.379 Time Spent (min) 35
--- NOTE | 2022-09-26 14:49 | Orthopedic Consultation ---
Date of Service September 26, 2022 Assessment & Plan (1) Foot drop: I believe her foot drop may be coming from nerve compression of the lumbar spine. I like to get an MRI of the lumbar spine. If the MRI shows a large disc which is causing the weakness, she may be a surgical candidate. We will follow- up after the MRI. History of Present Illness Reason for Consultation: Dropfoot left ankle. Requesting Physician: . Attending Physician: Lashaun Betancur MD Ameena is a 37-year-old female who is currently admitted with alcohol withdrawals. She complains of a several week history of increasing weakness in her left leg. She basically has a dropfoot on the left side. She was in the emergency room complaining of low back pain back in January. A CT scan of the lumbar spine was ordered and did show a disc protrusion at L5-S1. She was not having any neurologic symptoms at that time. Unfortunately the weakness has become worse. Is become debilitating recently. Orthopedics was consulted to evaluate and treat. She is complaining of pain that radiates from her gluteal region down the posterior aspect of her thigh and her calf and weakness in her left foot.. Allergies Allergy/AdvReac Type Severity Reaction Status Date / Time adhesive Allergy Intermediate SKIN Verified 09/25/22 00:05 BLISTER, TORN OFF SKIN WHEN REMOVED Home Medications Medication Instructions Recorded Confirmed Type gabapentin 600 mg tablet 600 mg PO TID PRN back pain #20 09/03/22 09/25/22 Rx tabs levothyroxine 112 mcg tablet 112 mcg PO DAILYBB 09/25/22 09/25/22 History Past Med/Surg History Medical History Anxiety Fatigue H/O ETOH abuse Hypothyroid Thyroid condition Tobacco abuse disorder Surgical History No pertinent past surgical history Family History Father Heart disease Colorectal cancer Myocardial infarction Denies family history of Ovarian cancer Prostate cancer Breast cancer Social History Smoking Status: Current every day smoker Tobacco Type: Cigarettes packs per day: 1; Cigarettes Per Day: 20; Second Hand Exposure: No; Hx Alcohol Use: Yes Alcohol type: beer Hx Substance Use: No Preferred Language: Slovak Communication Ability: Effective Visual Impairment: No Limitations Hearing Ability: Normal Camera Technician Required: No Beliefs That Will Affect Care: None marital status: Single Current Living Situation: Alone Current Living Situation Comment: home current occupational status: employed Feels Safe at Home: Yes Diet Comment: regular caffeine: Yes during the past year weight has: remained stable Dental Care, Regularly: No Physical Activity Frequency: 5-6 Times per Week Physical Activity Frequency Comment: active job Seatbelt Use: always Sunscreen Use: Yes Assistive Devices: None Review of Systems All systems reviewed & are unremarkable except as noted in HPI & below. Physical Exam On physical examination, she has 3 out of 5 muscle strength with dorsiflexion of her left ankle and 3 out of 5 motor strength with extension of her left great toe. She seems to have good strength in her calf and her quad. She has pain that radiates down the posterior aspect of her leg.. Constitutional WD/WN, vitals as above Eyes PERRL, conjunctivae normal, anicteric sclerae ENMT external ear and nose normal, oropharynx normal Neck trachea midline, no thyromegaly Respiratory normal respiratory effort, lungs clear to auscultation Cardiovascular RRR, no murmur, no edema Gastrointestinal (Abdomen) normal bowel sounds, soft, nontender, no hepatosplenomegaly Skin no rashes, warm and dry Psychiatric A+Ox3, euthymic affect Results & Data Results & Data Laboratory Results . Diagnostic Findings X-rays of the lumbar spine from previous visits were reviewed. The x-rays look okay CT scan of the lumbar spine from January 2022 does show a disc herniation at L5 4 5 and a disc protrusion at L5-S1.. PG Care Time/CCT Total # of Minutes Spent Total Time Spent with Patient: Total time spent is greater than 50% in coordination of care (as documented) at patient's floor/unit and/or counseling patient: Coding Level of Care Code 33068 IN/OBS CONSULT LVL 4,60M Diagnoses Foot drop M21.379
--- NOTE | 2022-09-26 17:24 | Magnetic Resonance Report ---
MR lumbar spine wo con CLINICAL HISTORY: left foot drop TECHNIQUE: Multiplanar sequences through the lumbar spine were obtained, without intravenous contrast . Comparison: Comparison is made to lumbar spine radiographs 09/24/2022 FINDINGS: The alignment is anatomical. L1-L2: No significant abnormality. L2-L3: No significant abnormality. L3-L4: No significant abnormality. L4-L5: There is a broad base posterior disc bulge with mild bilateral neural foraminal stenosis. L5-S1: There is a large disc extrusion, left greater than right, measuring 18 x 12 mm. This results i n severe canal stenosis, AP diameter 4 mm, as well as effacing the left nerve roots. No significant r ight neural foraminal stenosis is seen. The spinal ligaments are intact, without evidence of disruption or abnormal signal intensity. The spi nal cord is normal in signal intensity and there is no evidence of cord contusion. There is no eviden ce of an extradural, intradural, extramedullary or intramedullary lesion. Visualized soft tissues are normal. IMPRESSION: Large disc extrusion at L5-S1 with resulting severe canal stenosis and severe left neuroforaminal david nosis. Mild right neural foraminal stenosis is seen. ACT 112: Negative or not required by law. Electronically signed by: Colt Meyer M.D. 09/26/2022 5:22 PM
[2022-09-26] MEDS: oxyCODONE HCL IR 5 MG TAB (IMMEDIATE RELEASE) PO PRN ×2 (18:01→23:31)
[2022-09-27] MEDS: LEVOTHYROXINE SODIUM 112 MCG TABLET PO SCH (05:35)
[2022-09-27 06:40] LABS: BUN Creatinine Ratio 11.9 (10-20); Calcium 9.1 mg/dl (8.5-10.1); Creatinine Clr Calc Pharmacy 120.6 ml/min; Est GFR (African American) 129.2 ml/min; Est GFR (Non-African American) 111.5 ml/min; Potassium 4.1 mmol/L (3.5-5.1)
[2022-09-27] MEDS: THIAMINE HCL 100 MG TAB PO SCH (08:58)
[2022-09-27] MEDS: ENOXAPARIN INJ 40 MG/0.4 ML SYR SQ SCH (08:58)
[2022-09-27] MEDS: FOLIC ACID 1 MG TAB PO SCH (08:58)
[2022-09-27] MEDS: NICOTINE 21 MG/24 HR TDSY TD SCH (08:58)
[2022-09-27] MEDS: chlordiazePOXIDE HCl 25 MG CAP PO SCH ×3 (09:00→20:37)
[2022-09-27] MEDS: oxyCODONE HCL IR 5 MG TAB (IMMEDIATE RELEASE) PO PRN ×3 (09:01→20:37)
[2022-09-27] MEDS: POLYETHYLENE (MIRALAX) 17 GM PACK PO SCH (09:06)
--- NOTE | 2022-09-27 11:21 | Orthopedic Progress Note ---
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 The symptoms worsened about 3 weeks ago with her developing some weakness in ankle dorsiflexion. Admitted on 09/24/2022 for alcohol withdrawal, she reports a continuation of her symptoms. She reports no bowel or bladder control issues but she does have intermittent urgency. Pain is indicated more so on the left lumbosacral region and left buttock, right leg motor exam reveals her to have appropriate strength for all groups tested, her right EHL might be slightly decreased in the 4+ range. Straight leg raise on the right reveals some left buttock pain. Left leg exam reveals the EHL to be at 4 -, ankle dorsiflexion is diminished with medial deviation, as there is also some weakness in plantar flexion and the 3-4 range. Straight leg raise on the left cause combination of buttock and posterior thigh symptomatology. Review of MRI images at [facility] from September 26, 2022, is my separate interpretation reveals large left-sided disc herniation with a combination of stenosis primarily on the left side be causing significant central stenosis and left foraminal stenosis at L5-S1, disc extrusion cephalad behind L5 vertebral body. The most significant stenosis is at the disc level. L4-5 has loss of signal intensity and some broad-based bulging. Impression: L5-S1 disc herniation/extrusion with combination of L5 and S1 radiculopathy, motor weakness. Plan: Had discussion with hospitalist after discussing the findings and situation with the patient. I relayed to her that she will need surgical intervention for a decompression at the L5-S1 level to remove the disc herniation fragment. As the patient has had this situation for approximately 3 weeks, I recommending taper dose steroids, AFO to improve ambulation, and we will work to get her scheduled next week for a lumbar decompression/discectomy. I did discuss with the patient the nature of the operation, technical details on how was performed, potential risk complications noting that this should help with a combination of the radiculopathy, motor strength, and possibly some of the back pain that she was having chronically though she may still continue to have some chronic back pain due to the changes involving both the L5-S1 and L4-[address] Betancur relates that she may be discharged over the weekend relative to her alcohol withdrawal symptoms, we will check as to scheduling for next week. Review of Systems All systems reviewed & are unremarkable except as noted in HPI & below. Physical Exam . Results & Data Results & Data Laboratory Results . Diagnostic Findings . PG Care Time/CCT Total # of Minutes Spent Total Time Spent with Patient: Total time spent is greater than 50% in coordination of care (as documented) at patient's floor/unit and/or counseling patient: Coding Level of Care Code 31708 SUB INP/OBS CARE 350MIN Diagnoses Foot drop M21.379 Left lumbar radiculopathy M54.16 Lumbosacral disc herniation M51.27
--- NOTE | 2022-09-27 12:58 | Hospitalist Progress Note ---
Date of Service September 27, 2022 Assessment & Plan (1) Alcohol use with withdrawal: Plan: patient is a chronic alcoholic, admitted to the hospital and found to be in withdrawal. Last drink was the day of presentation. beverage of choice is beer By her own admission, she has had withdrawal seizures in the past -Today, no tremors on exam -Will continue [facility] protocol -Received banana bag -Maintain fall and seizure precaution (2) Lumbosacral disc herniation: Plan: Left foot drop for several weeks, but got worse in the past couple of weeks foot x ray did not show any acute pathology Lumbar x ray showed only mild degenerative changes However MRI Lumbar showed large disc extrusion at L5-S1 ortho on consult, plan is elective surgery next week will start IV steroids 40mg Q8 hrs (3) Chronic hyponatremia: Plan: Most likely due to beer potomania serum sodium close to baseline monitor (4) Abnormal LFTs: Plan: Due to alcohol abuse Monitor (5) Alcohol abuse: Plan: patient has been advised to quit alcohol (6) Foot drop: Plan hopefully d/c tomorrow for outpatient spine surgery next week Admission and Anticipated Discharge Date Admission Date: September 24, 2022 Subjective patient seen and examined, still has some tremors and foot drop Review of Systems Review of Systems: All systems reviewed are negative, apart from the ones contained in the history. Physical Exam Physical Exam: The patient is awake, alert and oriented 3, well developed and well nourished, normocephalic and atraumatic, lying in bed and in no acute distress. HEENT--PERRL, EOMI, mucous membranes and oropharynx mildly dry Neck--supple. No JVD. No bruits. Thyroid normal, trachea midline, no adenopathy. Heart--normal S1 and S2. No murmurs, rubs or gallops. Lungs--clear bilaterally, no respiratory distress, no accessory muscle use. Abdomen--normal bowel sounds and soft. Mild epigastric and left sided abdominal pain Extremities--no cyanosis or clubbing. No edema. Dermatologic--normal skin turgor, normal color, no abnormal lymph nodes, no rash. Neurologic--cranial nerves II through XII grossly intact. Tremors Rheumatologic--normal range of motion. Psychiatric--normal affect. Results & Data Results & Data ([facility]) Vital Signs (Past 12 Hours) Vital Signs Temp Pulse Pulse Pulse Resp BP Pulse Ox 09/27/22 11:59 98.6 F 77 18 121/80 99 09/27/22 07:20 98.1 F 80 18 111/74 99 09/27/22 07:43 74 09/27/22 03:26 98.2 F 83 20 109/73 94 O2 Del Method 09/27/22 11:59 Room Air 09/27/22 07:20 Room Air 09/27/22 07:43 09/27/22 03:26 Room Air PG Care Time/CCT Total # of Minutes Spent Total Time Spent with Patient: Total time spent is greater than 50% in coordination of care (as documented) at patient's floor/unit and/or counseling patient: Coding Level of Care Code 82945 SUB INP/OBS CARE 2/35MIN Diagnoses Alcohol use with withdrawal F10.939 Lumbosacral disc herniation M51.27 Chronic hyponatremia E87.1 Abnormal LFTs R79.89 Alcohol abuse F10.10 Foot drop M21.379 Time Spent (min) 35
[2022-09-27] MEDS: methylPREDNISolone 40 MG in SYRINGE 0 ML IV SCH ×2 (13:01→20:38)
[2022-09-28] MEDS: methylPREDNISolone 40 MG in SYRINGE 0 ML IV SCH ×3 (04:51→20:01)
[2022-09-28 06:16] LABS: Hematocrit (blood only) 34.8 % (37.0-47.0); Hemoglobin 11.6 g/dl (12.0-16.0); Mean Corpuscular Hemoglobin 28.4 pg (25.0-34.0); Mean Corpuscular Hgb Conc 33.3 g/dL (32.0-36.0); Mean Corpuscular Volume 85.3 fL (80.0-100.0); Mean Platelet Volume 10.4 fL (9.4-12.4); Platelet Count 124 K/uL (130-400); RDW Standard Deviation 58.8 fL (36.4-46.3); Red Blood Count 4.08 M/uL (4.20-5.40); White Blood Count 5.22 K/ul (4.8-10.8)
[2022-09-28] MEDS: LEVOTHYROXINE SODIUM 112 MCG TABLET PO SCH (06:23)
[2022-09-28 06:30] LABS: BUN Creatinine Ratio 19.1 (10-20); Calcium 9.5 mg/dl (8.5-10.1); Creatinine Clr Calc Pharmacy 118.1 ml/min; Est GFR (African American) 128.6 ml/min; Potassium 4.3 mmol/L (3.5-5.1)
[2022-09-28] MEDS: FOLIC ACID 1 MG TAB PO SCH (08:41)
[2022-09-28] MEDS: THIAMINE HCL 100 MG TAB PO SCH (08:41)
[2022-09-28] MEDS: chlordiazePOXIDE HCl 25 MG CAP PO SCH ×3 (08:41→20:00)
[2022-09-28] MEDS: NICOTINE 21 MG/24 HR TDSY TD SCH (08:42)
[2022-09-28] MEDS: ENOXAPARIN INJ 40 MG/0.4 ML SYR SQ SCH (08:42)
[2022-09-28] MEDS: POLYETHYLENE (MIRALAX) 17 GM PACK PO SCH (09:14)
--- NOTE | 2022-09-28 11:26 | Hospitalist Progress Note ---
Date of Service September 28, 2022 Assessment & Plan (1) Alcohol use with withdrawal: Plan: patient is a chronic alcoholic, admitted to the hospital and found to be in withdrawal. Last drink was the day of presentation. beverage of choice is beer By her own admission, she has had withdrawal seizures in the past -Today, no tremors on exam -Discontinue [facility] -Continue Chlordiazepoxide taper (2) Lumbosacral disc herniation: Plan: Left foot drop for several weeks, but got worse in the past couple of weeks foot x ray did not show any acute pathology Lumbar x ray showed only mild degenerative changes However MRI Lumbar showed large disc extrusion at L5-S1 ortho on consult, plan is elective surgery next week will start IV steroids 40mg Q8 hrs (3) Chronic hyponatremia: Plan: Most likely due to beer potomania serum sodium close to baseline monitor (4) Abnormal LFTs: Plan: Due to alcohol abuse Monitor (5) Alcohol abuse: Plan: patient has been advised to quit alcohol (6) Foot drop: Plan Patient initially admitted for ETOH withdrawal, this has resolved. However, she is due to get surgery for herniated disc on friday or friday. A good plan would have been to discharge her, however, she says she has steps at home and would be unable to cope. Its reasonable to keep her here till her surgery Admission and Anticipated Discharge Date Admission Date: September 24, 2022 Subjective patient seen and examined, no more tremors Review of Systems Review of Systems: All systems reviewed are negative, apart from the ones contained in the history. Physical Exam Physical Exam: The patient is awake, alert and oriented 3, well developed and well nourished, normocephalic and atraumatic, lying in bed and in no acute distress. HEENT--PERRL, EOMI, mucous membranes and oropharynx mildly dry Neck--supple. No JVD. No bruits. Thyroid normal, trachea midline, no adenopathy. Heart--normal S1 and S2. No murmurs, rubs or gallops. Lungs--clear bilaterally, no respiratory distress, no accessory muscle use. Abdomen--normal bowel sounds and soft. Mild epigastric and left sided abdominal pain Extremities--no cyanosis or clubbing. No edema. Dermatologic--normal skin turgor, normal color, no abnormal lymph nodes, no rash. Neurologic--cranial nerves II through XII grossly intact. Tremors Rheumatologic--normal range of motion. Psychiatric--normal affect. Results & Data Results & Data ([facility]) Vital Signs (Past 12 Hours) Vital Signs Temp Pulse Pulse Pulse Resp BP Pulse Ox 09/28/22 11:03 97.7 F 88 20 121/78 95 09/28/22 07:21 98.6 F 70 18 119/80 95 09/28/22 07:15 71 09/28/22 03:14 98.1 F 71 18 109/72 96 O2 Del Method 09/28/22 11:03 Room Air 09/28/22 07:21 Room Air 09/28/22 07:15 09/28/22 03:14 Room Air PG Care Time/CCT Total # of Minutes Spent Total Time Spent with Patient: Total time spent is greater than 50% in coordination of care (as documented) at patient's floor/unit and/or counseling patient: Coding Level of Care Code 59561 SUB INP/OBS CARE 2/35MIN Diagnoses Alcohol use with withdrawal F10.939 Lumbosacral disc herniation M51.27 Chronic hyponatremia E87.1 Abnormal LFTs R79.89 Alcohol abuse F10.10 Foot drop M21.379 Time Spent (min) 35
[2022-09-28] MEDS: oxyCODONE HCL IR 5 MG TAB (IMMEDIATE RELEASE) PO PRN ×2 (13:03→20:00)
[2022-09-28] MEDS ORDERED: DICLOFENAC SOD 1% GEL 100 GM TUBE EXT PRN (15:51)
[2022-09-28] MEDS: MELATONIN 3 MG TAB PO PRN (23:54)
[2022-09-29] MEDS: methylPREDNISolone 40 MG in SYRINGE 0 ML IV SCH ×3 (05:36→20:03)
[2022-09-29] MEDS: LEVOTHYROXINE SODIUM 112 MCG TABLET PO SCH (05:38)
[2022-09-29] MEDS: chlordiazePOXIDE HCl 25 MG CAP PO SCH ×2 (09:16→20:02)
[2022-09-29] MEDS: POLYETHYLENE (MIRALAX) 17 GM PACK PO SCH (09:16)
[2022-09-29] MEDS: FOLIC ACID 1 MG TAB PO SCH (09:17)
[2022-09-29] MEDS: NICOTINE 21 MG/24 HR TDSY TD SCH (09:17)
[2022-09-29] MEDS: ENOXAPARIN INJ 40 MG/0.4 ML SYR SQ SCH (09:17)
[2022-09-29] MEDS: THIAMINE HCL 100 MG TAB PO SCH (09:17)
--- NOTE | 2022-09-29 12:16 | Hospitalist Progress Note ---
Date of Service September 29, 2022 Assessment & Plan (1) Lumbosacral disc herniation: Plan: Left foot drop for several weeks, but got worse in the past couple of weeks foot x ray did not show any acute pathology Lumbar x ray showed only mild degenerative changes However MRI Lumbar showed large disc extrusion at L5-S1 ortho on consult, plan is elective surgery next week Friday will continue IV steroids 40mg Q8 hrs (2) Alcohol use with withdrawal: Plan: patient is a chronic alcoholic, admitted to the hospital and found to be in withdrawal. Last drink was the day of presentation. beverage of choice is beer By her own admission, she has had withdrawal seizures in the past -Today, no tremors on exam -Discontinue CIWA -Continue Chlordiazepoxide taper (3) Chronic hyponatremia: Plan: Most likely due to beer potomania serum sodium close to baseline monitor (4) Abnormal LFTs: Plan: Due to alcohol abuse Monitor (5) Alcohol abuse: Plan: patient has been advised to quit alcohol (6) Foot drop: Plan: see 1 Plan Patient initially admitted for ETOH withdrawal, this has resolved. However, she is due to get surgery for herniated disc on friday or friday. A good plan would have been to discharge her, however, she says she has steps at home and would be unable to cope. Its reasonable to keep her here till her surgery on Friday Admission and Anticipated Discharge Date Admission Date: September 24, 2022 Subjective patient seen and examined, no more tremors, still foot drop, awaiting surgery Review of Systems Review of Systems: All systems reviewed are negative, apart from the ones contained in the history. Physical Exam Physical Exam: The patient is awake, alert and oriented 3, well developed and well nourished, normocephalic and atraumatic, lying in bed and in no acute distress. HEENT--PERRL, EOMI, mucous membranes and oropharynx mildly dry Neck--supple. No JVD. No bruits. Thyroid normal, trachea midline, no adenopathy. Heart--normal S1 and S2. No murmurs, rubs or gallops. Lungs--clear bilaterally, no respiratory distress, no accessory muscle use. Abdomen--normal bowel sounds and soft. Mild epigastric and left sided abdominal pain Extremities--no cyanosis or clubbing. No edema. Dermatologic--normal skin turgor, normal color, no abnormal lymph nodes, no rash. Neurologic--cranial nerves II through XII grossly intact. Tremors Rheumatologic--normal range of motion. Psychiatric--normal affect. Results & Data Results & Data ([facility]) Vital Signs (Past 12 Hours) Vital Signs Temp Pulse Resp BP BP Pulse Ox O2 Del Method 09/29/22 11:10 106/74 09/29/22 09:15 98/61 L 09/29/22 06:58 98.4 F 70 16 99/63 L 95 Room Air PG Care Time/CCT Total # of Minutes Spent Total Time Spent with Patient: Total time spent is greater than 50% in coordination of care (as documented) at patient's floor/unit and/or counseling patient: Coding Level of Care Code 73419 SUB INP/OBS CARE 2/35MIN Diagnoses Lumbosacral disc herniation M51.27 Alcohol use with withdrawal F10.939 Chronic hyponatremia E87.1 Abnormal LFTs R79.89 Alcohol abuse F10.10 Foot drop M21.379 Time Spent (min) 35
[2022-09-29] MEDS: oxyCODONE HCL IR 5 MG TAB (IMMEDIATE RELEASE) PO PRN (19:18)
[2022-09-29] MEDS: MELATONIN 3 MG TAB PO PRN (23:08)
[2022-09-30] MEDS: LEVOTHYROXINE SODIUM 112 MCG TABLET PO SCH (05:30)
[2022-09-30] MEDS: methylPREDNISolone 40 MG in SYRINGE 0 ML IV SCH ×3 (05:30→20:24)
[2022-09-30 07:25] LABS: Hemoglobin 10.5 g/dl (12.0-16.0); Mean Corpuscular Hemoglobin 28.8 pg (25.0-34.0); Mean Corpuscular Hgb Conc 32.8 g/dL (32.0-36.0); Mean Corpuscular Volume 87.7 fL (80.0-100.0); Mean Platelet Volume 9.7 fL (9.4-12.4); Platelet Count 148 K/uL (130-400); RDW Coefficient of Variation 19.9 % (11.5-14.5); RDW Standard Deviation 64.3 fL (36.4-46.3); Red Blood Count 3.65 M/uL (4.20-5.40)
[2022-09-30 07:41] LABS: BUN Creatinine Ratio 27.1 (10-20); Calcium 8.9 mg/dl (8.5-10.1); Creatinine Clr Calc Pharmacy 136.1 ml/min; Est GFR (African American) 134.8 ml/min; Est GFR (Non-African American) 116.3 ml/min; Potassium 4.4 mmol/L (3.5-5.1)
[2022-09-30] MEDS: chlordiazePOXIDE HCl 25 MG CAP PO SCH (08:24)
[2022-09-30] MEDS: THIAMINE HCL 100 MG TAB PO SCH (08:24)
[2022-09-30] MEDS: POLYETHYLENE (MIRALAX) 17 GM PACK PO SCH (08:24)
[2022-09-30] MEDS: FOLIC ACID 1 MG TAB PO SCH (08:24)
[2022-09-30] MEDS: NICOTINE 21 MG/24 HR TDSY TD SCH (08:24)
[2022-09-30] MEDS: oxyCODONE HCL IR 5 MG TAB (IMMEDIATE RELEASE) PO PRN ×3 (09:27→20:25)
--- NOTE | 2022-09-30 12:07 | Hospitalist Progress Note ---
Date of Service September 30, 2022 Assessment & Plan (1) Lumbosacral disc herniation: Plan: Left foot drop for several weeks, but got worse in the past couple of weeks foot x ray did not show any acute pathology Lumbar x ray showed only mild degenerative changes However MRI Lumbar showed large disc extrusion at L5-S1 ortho on consult, plan is elective surgery tomorrow, Friday will continue IV steroids 40mg Q8 hrs (2) Alcohol use with withdrawal: Plan: patient is a chronic alcoholic, admitted to the hospital and found to be in withdrawal. Last drink was the day of presentation. beverage of choice is beer By her own admission, she has had withdrawal seizures in the past -Today, no tremors on exam -Discontinue CIWA -Continue Chlordiazepoxide taper (3) Chronic hyponatremia: Plan: Most likely due to beer potomania serum sodium close to baseline monitor (4) Abnormal LFTs: Plan: Due to alcohol abuse Monitor (5) Alcohol abuse: Plan: patient has been advised to quit alcohol (6) Foot drop: Plan: see 1 Plan Patient initially admitted for ETOH withdrawal, this has resolved. However, she is due to get surgery for herniated disc on friday or friday. A good plan would have been to discharge her, however, she says she has steps at home and would be unable to cope. Its reasonable to keep her here till her surgery on Friday Admission and Anticipated Discharge Date Admission Date: September 24, 2022 Subjective patient seen and examined, awaiting surgery, no new complaints today Review of Systems Review of Systems: All systems reviewed are negative, apart from the ones contained in the history. Physical Exam Physical Exam: The patient is awake, alert and oriented 3, well developed and well nourished, normocephalic and atraumatic, lying in bed and in no acute distress. HEENT--PERRL, EOMI, mucous membranes and oropharynx mildly dry Neck--supple. No JVD. No bruits. Thyroid normal, trachea midline, no adenopathy. Heart--normal S1 and S2. No murmurs, rubs or gallops. Lungs--clear bilaterally, no respiratory distress, no accessory muscle use. Abdomen--normal bowel sounds and soft. Mild epigastric and left sided abdominal pain Extremities--no cyanosis or clubbing. No edema. Dermatologic--normal skin turgor, normal color, no abnormal lymph nodes, no rash. Neurologic--cranial nerves II through XII grossly intact. Tremors Rheumatologic--normal range of motion. Psychiatric--normal affect. Results & Data Results & Data ([facility]) Vital Signs (Past 12 Hours) Vital Signs Temp Pulse Resp BP Pulse Ox O2 Del Method 09/30/22 07:11 97.9 F 94 H 16 115/79 98 Room Air PG Care Time/CCT Total # of Minutes Spent Total Time Spent with Patient: Total time spent is greater than 50% in coordination of care (as documented) at patient's floor/unit and/or counseling patient: Coding Level of Care Code 10146 SUB INP/OBS CARE 2/35MIN Diagnoses Lumbosacral disc herniation M51.27 Alcohol use with withdrawal F10.939 Chronic hyponatremia E87.1 Abnormal LFTs R79.89 Alcohol abuse F10.10 Foot drop M21.379 Time Spent (min) 35
[2022-10-01] MEDS: oxyCODONE HCL IR 5 MG TAB (IMMEDIATE RELEASE) PO PRN ×5 (00:30→19:33)
[2022-10-01] MEDS: MELATONIN 3 MG TAB PO PRN ×2 (00:30→23:26)
[2022-10-01] MEDS: methylPREDNISolone 40 MG in SYRINGE 0 ML IV SCH ×3 (04:50→21:08)
[2022-10-01] MEDS: LEVOTHYROXINE SODIUM 112 MCG TABLET PO SCH (06:24)
[2022-10-01] MEDS: POLYETHYLENE (MIRALAX) 17 GM PACK PO SCH ×2 (07:20→21:08)
[2022-10-01 08:05] LABS: Hematocrit (blood only) 30.9 % (37.0-47.0); Mean Corpuscular Hemoglobin 28.7 pg (25.0-34.0); Mean Corpuscular Hgb Conc 32.4 g/dL (32.0-36.0); Mean Corpuscular Volume 88.5 fL (80.0-100.0); Mean Platelet Volume 9.8 fL (9.4-12.4); Platelet Count 153 K/uL (130-400); RDW Coefficient of Variation 19.7 % (11.5-14.5); RDW Standard Deviation 63.4 fL (36.4-46.3); Red Blood Count 3.49 M/uL (4.20-5.40); White Blood Count 4.68 K/ul (4.8-10.8)
[2022-10-01] MEDS: NICOTINE 21 MG/24 HR TDSY TD SCH (08:15)
[2022-10-01 08:42] LABS: BUN Creatinine Ratio 30.4 (10-20); Calcium 8.7 mg/dl (8.5-10.1); Creatinine Clr Calc Pharmacy 143.4 ml/min; Est GFR (African American) 137.1 ml/min; Est GFR (Non-African American) 118.3 ml/min; Potassium 4.2 mmol/L (3.5-5.1)
[2022-10-01] MEDS: FOLIC ACID 1 MG TAB PO SCH (09:53)
[2022-10-01] MEDS: THIAMINE HCL 100 MG TAB PO SCH (09:53)
[2022-10-01] MEDS: chlordiazePOXIDE HCl 25 MG CAP PO SCH (11:07)
--- NOTE | 2022-10-01 12:05 | Hospitalist Progress Note ---
Date of Service October 01, 2022 Assessment & Plan (1) Lumbosacral disc herniation: Plan: Left foot drop for several weeks, but got worse in the past couple of weeks prior to hospital presentation foot x ray did not show any acute pathology Lumbar x ray showed only mild degenerative changes However MRI Lumbar showed large disc extrusion at L5-S1 ortho on consult, plan was elective surgery, however surgery has been cancelled because her insurance is not accepted by the surgeon Will look to either transfer or for another surgeon that can accept her insurance will continue IV steroids 40mg Q8 hrs (2) Alcohol use with withdrawal: Plan: patient is a chronic alcoholic, admitted to the hospital and found to be in withdrawal. Last drink was the day of presentation. beverage of choice is beer By her own admission, she has had withdrawal seizures in the past -Today, no tremors on exam -Discontinue CIWA -Continue Chlordiazepoxide taper (3) Chronic hyponatremia: Plan: Most likely due to beer potomania serum sodium close to baseline monitor (4) Abnormal LFTs: Plan: Due to alcohol abuse Monitor (5) Alcohol abuse: Plan: patient has been advised to quit alcohol (6) Foot drop: Plan: see 1 Plan plan was elective surgery, however surgery has been cancelled because her insurance is not accepted by the surgeon Will look to either transfer or for another surgeon that can accept her insurance Admission and Anticipated Discharge Date Admission Date: September 24, 2022 Subjective patient seen and examined, surgery has been cancelled because her insurance is not acceptable to the surgeon Review of Systems Review of Systems: All systems reviewed are negative, apart from the ones contained in the history. Physical Exam Physical Exam: The patient is awake, alert and oriented 3, well developed and well nourished, normocephalic and atraumatic, lying in bed and in no acute distress. HEENT--PERRL, EOMI, mucous membranes and oropharynx mildly dry Neck--supple. No JVD. No bruits. Thyroid normal, trachea midline, no adenopathy. Heart--normal S1 and S2. No murmurs, rubs or gallops. Lungs--clear bilaterally, no respiratory distress, no accessory muscle use. Abdomen--normal bowel sounds and soft. Mild epigastric and left sided abdominal pain Extremities--no cyanosis or clubbing. No edema. Dermatologic--normal skin turgor, normal color, no abnormal lymph nodes, no rash. Neurologic--cranial nerves II through XII grossly intact. Tremors Rheumatologic--normal range of motion. Psychiatric--normal affect. Results & Data Results & Data ([facility]) Vital Signs (Past 12 Hours) Vital Signs Temp Pulse Resp BP Pulse Ox O2 Del Method 10/01/22 09:53 99/60 L 10/01/22 07:59 98.8 F 70 16 93/52 L 96 Room Air PG Care Time/CCT Total # of Minutes Spent Total Time Spent with Patient: Total time spent is greater than 50% in coordination of care (as documented) at patient's floor/unit and/or counseling patient: Coding Level of Care Code 17159 SUB INP/OBS CARE 2/35MIN Diagnoses Lumbosacral disc herniation M51.27 Alcohol use with withdrawal F10.939 Chronic hyponatremia E87.1 Abnormal LFTs R79.89 Alcohol abuse F10.10 Foot drop M21.379 Time Spent (min) 35
[2022-10-02] MEDS: methylPREDNISolone 40 MG in SYRINGE 0 ML IV SCH ×3 (04:58→20:29)
[2022-10-02] MEDS: LEVOTHYROXINE SODIUM 112 MCG TABLET PO SCH (04:58)
[2022-10-02] MEDS: ENOXAPARIN INJ 40 MG/0.4 ML SYR SQ SCH (08:09)
[2022-10-02] MEDS: NICOTINE 21 MG/24 HR TDSY TD SCH (08:10)
[2022-10-02] MEDS: THIAMINE HCL 100 MG TAB PO SCH (08:11)
[2022-10-02] MEDS: FOLIC ACID 1 MG TAB PO SCH (08:11)
[2022-10-02] MEDS: oxyCODONE HCL IR 5 MG TAB (IMMEDIATE RELEASE) PO PRN ×3 (08:14→20:28)
[2022-10-02] MEDS: chlordiazePOXIDE HCl 25 MG CAP PO SCH (08:14)
--- NOTE | 2022-10-02 12:33 | Hospitalist Progress Note ---
Date of Service October 02, 2022 Assessment & Plan (1) Lumbosacral disc herniation: Plan: Left foot drop for several weeks, but got worse in the past couple of weeks prior to hospital presentation foot x ray did not show any acute pathology Lumbar x ray showed only mild degenerative changes However MRI Lumbar showed large disc extrusion at L5-S1 ortho on consult, plan was elective surgery, however surgery has been cancelled because her insurance is not accepted by the surgeon [facility] refused inpatient transfer, but the spine surgeon is willing to see her outpatient will continue IV steroids 40mg Q8 hrs Will make plans for d/c so she can follow up wit [facility] (2) Alcohol use with withdrawal: Plan: patient is a chronic alcoholic, admitted to the hospital and found to be in withdrawal. Last drink was the day of presentation. beverage of choice is beer By her own admission, she has had withdrawal seizures in the past -Today, no tremors on exam -Discontinue CIWA -she completed Chlordiazepoxide taper (3) Chronic hyponatremia: Plan: Most likely due to beer potomania serum sodium close to baseline monitor (4) Abnormal LFTs: Plan: Due to alcohol abuse Monitor (5) Alcohol abuse: Plan: patient has been advised to quit alcohol (6) Foot drop: Plan: see 1 Plan plan was elective surgery, however surgery has been cancelled because her insurance is not accepted by the surgeon Outpatient follow up with spine surgeon at [facility] Admission and Anticipated Discharge Date Admission Date: September 24, 2022 Subjective patient seen and examined, surgery has been cancelled because her insurance is not acceptable to the surgeon, but [facility] outpatient spine surgery is willing to accept Review of Systems Review of Systems: All systems reviewed are negative, apart from the ones contained in the history. Physical Exam Physical Exam: The patient is awake, alert and oriented 3, well developed and well nourished, normocephalic and atraumatic, lying in bed and in no acute distress. HEENT--PERRL, EOMI, mucous membranes and oropharynx mildly dry Neck--supple. No JVD. No bruits. Thyroid normal, trachea midline, no adenopathy. Heart--normal S1 and S2. No murmurs, rubs or gallops. Lungs--clear bilaterally, no respiratory distress, no accessory muscle use. Abdomen--normal bowel sounds and soft. Mild epigastric and left sided abdominal pain Extremities--no cyanosis or clubbing. No edema. Dermatologic--normal skin turgor, normal color, no abnormal lymph nodes, no rash. Neurologic--cranial nerves II through XII grossly intact. Tremors Rheumatologic--normal range of motion. Psychiatric--normal affect. Results & Data Results & Data Vital Signs (Past 12 Hours) Vital Signs Temp Pulse Resp BP Pulse Ox O2 Del Method 10/02/22 07:33 97.9 F 73 16 108/68 97 Room Air PG Care Time/CCT Total # of Minutes Spent Total Time Spent with Patient: Total time spent is greater than 50% in coordination of care (as documented) at patient's floor/unit and/or counseling patient: Coding Level of Care Code 85931 SUB INP/OBS CARE 2/35MIN Diagnoses Lumbosacral disc herniation M51.27 Alcohol use with withdrawal F10.939 Chronic hyponatremia E87.1 Abnormal LFTs R79.89 Alcohol abuse F10.10 Foot drop M21.379 Time Spent (min) 35
[2022-10-02] MEDS: ACETAMINOPHEN 325 MG TAB PO PRN ×2 (16:29→20:28)
--- NOTE | 2022-10-02 16:39 | Orthopedic Consultation ---
Date of Consultation October 02, 2022 Assessment & Plan (1) Lumbosacral disc herniation: Assessment lumbar disc herniation with radiculopathy and progressive motor deficit. Plan at this time patient is MRI demonstrates a massive disc herniation at L5-S1 causing severe central and lateral recess stenosis favoring the left side. There are significant cephalad migration. She is failed course of nonoperative care has progressive neuro deficit could consider surgical invention. Would require lumbar decompression and fusion L5-S1. Have acknowledged some modest breakdown of L4-L5 however this is not significant in nature compared to the L5-S1 pathology. She would require a wide decompression to safely and adequately remove the disc herniation creating iatrogenic instability and subsequently requiring fusion. Risk benefits pros cons and alternatives were outlined in detail risk include but not limited to anesthesia spinal stroke paralysis nerve damage blood loss recurrent transfusion infection requiring operation passively marked improvement of her radiculopathy. I did emphasize that she may have permanent strength deficits in light of the severity of her compression and presentation. We will make her n.p.o. after midnight plan for possible surgery tomorrow. History of Present Illness Reason for Consultation: Back with bilateral leg pain and weakness Attending Physician: Lashaun Betancur MD History of Present Illness This is a 37-year-old female presents with 2-month history of decline in function with back pain radiating into the bilateral buttocks down the left leg and left foot. She is developed a pronounced left foot drop. This is markedly limited ability to stand and ambulate. She denies any loss of bowel or bladder control. She denies any perineal numbness at this time. Allergies Allergy/AdvReac Type Severity Reaction Status Date / Time adhesive Allergy Intermediate SKIN Verified 09/25/22 00:05 BLISTER, TORN OFF SKIN WHEN REMOVED Home Medications Medication Instructions Recorded Confirmed Type gabapentin 600 mg tablet 600 mg PO TID PRN back pain #20 09/03/22 09/25/22 Rx tabs levothyroxine 112 mcg tablet 112 mcg PO DAILYBB 09/25/22 09/25/22 History Patient History Medical History Anxiety Fatigue H/O ETOH abuse Hypothyroid Thyroid condition Tobacco abuse disorder Surgical History No pertinent past surgical history Family History Father Heart disease Colorectal cancer Myocardial infarction Denies family history of Ovarian cancer Prostate cancer Breast cancer Social History Smoking Status: Current every day smoker Tobacco Type: Cigarettes packs per day: 1; Cigarettes Per Day: 20; Second Hand Exposure: No; Hx Alcohol Use: Yes Alcohol type: beer Hx Substance Use: No Preferred Language: Macedonian Communication Ability: Effective Visual Impairment: No Limitations Hearing Ability: Normal [employer] Faculty Member Required: No Beliefs That Will Affect Care: None marital status: Single Current Living Situation: Alone Current Living Situation Comment: home current occupational status: employed Feels Safe at Home: Yes Diet Comment: regular caffeine: Yes during the past year weight has: remained stable Dental Care, Regularly: No Physical Activity Frequency: 5-6 Times per Week Physical Activity Frequency Comment: active job Seatbelt Use: always Sunscreen Use: Yes Assistive Devices: None Physical Exam Physical Exam: On exam she is able to get up out of bed on her own. She will ambulate with a foot drop and stooped posture. Bench exam does reveal a 3+/5 left dorsiflexion compared to 5 on the right. Plantarflexion appears to be symmetric and intact. There is sensory deficits to light touch to bilateral lower extremities. She is severe tension signs with straight leg raising on the left as well as contralateral signs on the right. Results & Data Vital Signs (Past 12 Hours) Vital Signs Temp Pulse Resp BP Pulse Ox O2 Del Method 10/02/22 15:13 36.6 C 95 H 18 123/77 98 Room Air 10/02/22 07:33 36.6 C 73 16 108/68 97 Room Air
[2022-10-02] MEDS: MELATONIN 3 MG TAB PO PRN (20:32)
[2022-10-03] MEDS: methylPREDNISolone 40 MG in SYRINGE 0 ML IV SCH ×2 (05:56→12:59)
[2022-10-03] MEDS: LEVOTHYROXINE SODIUM 112 MCG TABLET PO SCH (05:57)
[2022-10-03 08:42] LABS: Hematocrit (blood only) 32.6 % (37.0-47.0); Hemoglobin 10.4 g/dl (12.0-16.0); Mean Corpuscular Hemoglobin 28.2 pg (25.0-34.0); Mean Corpuscular Hgb Conc 31.9 g/dL (32.0-36.0); Mean Corpuscular Volume 88.3 fL (80.0-100.0); Mean Platelet Volume 9.2 fL (9.4-12.4); Nucleated RBC # (auto) 0.04 K/uL (0-0.12); Nucleated RBC % (auto) 0.6 %; Platelet Count 234 K/uL (130-400); RDW Coefficient of Variation 19.6 % (11.5-14.5); RDW Standard Deviation 63.7 fL (36.4-46.3); Red Blood Count 3.69 M/uL (4.20-5.40); White Blood Count 6.54 K/ul (4.8-10.8)
[2022-10-03 08:49] LABS: Calcium 9.3 mg/dl (8.5-10.1); Creatinine Clr Calc Pharmacy 113.1 ml/min; Est GFR (African American) 125.2 ml/min; Est GFR (Non-African American) 108.1 ml/min; Potassium 4.5 mmol/L (3.5-5.1)
[2022-10-03] MEDS: FOLIC ACID 1 MG TAB PO SCH (09:18)
[2022-10-03] MEDS: THIAMINE HCL 100 MG TAB PO SCH (09:19)
[2022-10-03] MEDS: POLYETHYLENE (MIRALAX) 17 GM PACK PO SCH (09:19)
[2022-10-03] MEDS: NICOTINE 21 MG/24 HR TDSY TD SCH (09:35)
[2022-10-03] MEDS: oxyCODONE HCL IR 5 MG TAB (IMMEDIATE RELEASE) PO PRN ×2 (09:35→20:19)
--- NOTE | 2022-10-03 11:56 | Hospitalist Progress Note ---
Date of Service October 03, 2022 Assessment & Plan (1) Lumbosacral disc herniation: Plan: Patient has had Left foot drop for several weeks, but got worse in the past couple of weeks prior to hospital presentation foot x ray did not show any acute pathology Lumbar x ray showed only mild degenerative changes However MRI Lumbar showed large disc extrusion at L5-S1 ortho on consult, plan is surgery today (2) Alcohol use with withdrawal: Plan: patient is a chronic alcoholic, admitted to the hospital and found to be in withdrawal. Last drink was the day of presentation. beverage of choice is beer By her own admission, she has had withdrawal seizures in the past -has not had tremors in many days. CIWA has been discontinued (3) Chronic hyponatremia: Plan: Most likely due to beer potomania serum sodium close to baseline monitor (4) Abnormal LFTs: Plan: Due to alcohol abuse Monitor (5) Alcohol abuse: Plan: patient has been advised to quit alcohol (6) Foot drop: Plan: see 1 Plan Plan is for surgery today Admission and Anticipated Discharge Date Admission Date: September 24, 2022 Subjective patient seen and examined, plan is for surgery later today Review of Systems Review of Systems: All systems reviewed are negative, apart from the ones contained in the history. Physical Exam Physical Exam: The patient is awake, alert and oriented 3, well developed and well nourished, normocephalic and atraumatic, lying in bed and in no acute distress. HEENT--PERRL, EOMI, mucous membranes and oropharynx mildly dry Neck--supple. No JVD. No bruits. Thyroid normal, trachea midline, no adenopathy. Heart--normal S1 and S2. No murmurs, rubs or gallops. Lungs--clear bilaterally, no respiratory distress, no accessory muscle use. Abdomen--normal bowel sounds and soft. Extremities--no cyanosis or clubbing. No edema. Dermatologic--normal skin turgor, normal color, no abnormal lymph nodes, no rash. Neurologic--cranial nerves II through XII grossly intact. left lower extremity weakness, drop foot Rheumatologic--normal range of motion. Psychiatric--normal affect. Results & Data Results & Data Vital Signs (Past 12 Hours) Vital Signs Temp Pulse Resp BP Pulse Ox O2 Del Method 10/03/22 07:11 97.5 F L 79 14 119/77 97 Room Air PG Care Time/CCT Total # of Minutes Spent Total Time Spent with Patient: Total time spent is greater than 50% in coordination of care (as documented) at patient's floor/unit and/or counseling patient: Coding Level of Care Code 97988 SUB INP/OBS CARE 2/35MIN Diagnoses Lumbosacral disc herniation M51.27 Alcohol use with withdrawal F10.939 Chronic hyponatremia E87.1 Abnormal LFTs R79.89 Alcohol abuse F10.10 Foot drop M21.379 Time Spent (min) 35
--- NOTE | 2022-10-03 13:09 | History & Physical Bridge Note ---
Date of Service October 03, 2022 History & Physical Bridge Note I have examined the patient, reviewed the History & Physical and in the interval since the performance of the History & Physical I have noted the following changes of clinical significance: no changes noted Lumbar decompression possible fusion L5-S1
--- NOTE | 2022-10-03 13:27 | Anesthesiology Consultation ---
Date of Service October 03, 2022 Assessment & Plan Chart Review Chart Review: Acceptable Risk for Surgery Consults Requested none ASA ASA3 Proposed Anesthesia Anesthesia Type: General Risk / Benefits Reviewed With: PT / POA / Parent / Guardian, Accepts Plan and Informed Consent Obtained History Surgery Operation Date: 10/01/22 13:25 Proposed Procedures p L5-S1 Decompression Laminectomy - Soham Thomas MD Operation Date: 10/03/22 12:20 Proposed Procedures p L5-S1 Decompression and Fusion - Esteban Saucedo DO Height/Weight Height: 6 ft Weight: 66.7 kg Allergies Allergy/AdvReac Type Severity Reaction Status Date / Time adhesive Allergy Intermediate SKIN Verified 09/25/22 00:05 BLISTER, TORN OFF SKIN WHEN REMOVED Medications Home Medications Medication Instructions Recorded Confirmed Last Taken gabapentin 600 mg tablet 600 mg PO TID PRN back pain #20 09/03/22 09/25/22 U nknown tabs levothyroxine 112 mcg tablet 112 mcg PO DAILYBB 09/25/22 09/25/22 Unknown Active Medications Generic Name Dose Route Start Last Admin Trade Name Freq PRN Reason Stop Dose Admin Acetaminophen 650 mg 10/02/22 15:54 10/02/22 20:28 Acetaminophen 325 Mg Tab PO 11/01/22 15:53 650 mg Q4H PRN Administration Pain or Fever Albuterol 2 puffs 09/25/22 20:06 09/25/22 20:58 Albuterol Hfa 8 Gm Inhaler INH 10/25/22 20:14 2 puffs Q4H PRN Administration dyspnea/ wheeze Diclofenac Sodium 2 gm 09/28/22 15:51 09/29/22 18:49 Diclofenac Sod 1% Gel 100 Gm Tube EXT 10/28/22 15:59 2 gm Q8H PRN Administration Mild-Mod Pain (Scale 1-6) Protocol Enoxaparin Sodium 40 mg 09/25/22 09:00 10/02/22 08:09 Enoxaparin Inj 40 Mg/0.4 Ml Syr SQ 10/25/22 08:59 Not Given Q24H JO Folic Acid 1 mg 09/25/22 09:00 10/03/22 09:18 Folic Acid 1 Mg Tab PO 10/25/22 08:59 Not Given QAM JO Methylprednisolone 40 mg/ 0.64 mls @ 1.5 mls/min 09/27/22 12:45 10/03/22 12:59 Syringe IV 10/27/22 12:44 Not Given Q8H JO Levothyroxine Sodium 112 mcg 09/25/22 06:30 10/03/22 05:57 Levothyroxine Sodium 112 Mcg Tablet PO 10/25/22 06:29 Not Given DAILYBB JO Melatonin 3 mg 09/28/22 23:47 10/02/22 20:32 Melatonin 3 Mg Tab PO 10/28/22 23:46 3 mg HS PRN Administration Sleep Miscellaneous 1 each 09/26/22 09:00 10/03/22 09:35 Remove Nicoderm Patch N/A 10/26/22 08:59 1 each QAM JO Administration Nicotine 21 mg 09/26/22 09:00 10/03/22 09:35 Nicotine 21 Mg/24 Hr Tdsy TD 10/26/22 08:59 21 mg QAM JO Administration Oxycodone HCl 5 mg 09/26/22 17:53 10/03/22 09:35 Oxycodone Hcl Ir 5 Mg Tab (Immediate Release) PO 10/10/22 17:52 5 mg Q4H PRN Administration Pain Polyethylene Glycol 17 gm 09/26/22 10:30 10/03/22 09:19 Polyethylene (Miralax) 17 Gm Pack PO 10/26/22 10:29 Not Given DAILY JO Thiamine HCl 100 mg 09/25/22 09:00 10/03/22 09:19 Thiamine Hcl 100 Mg Tab PO 10/25/22 08:59 Not Given QAM JO NPO Date Last Intake of Fluids: 10/03/22 Time Last Intake of Fluids: 01:00 Date Last Intake of Solids: 10/03/22 Time Last Intake of Solids: 01:00 Past Medical History Medical History Anxiety Fatigue H/O ETOH abuse Hypothyroid Thyroid condition Tobacco abuse disorder Past Family History Family History Father Heart disease Colorectal cancer Myocardial infarction Denies family history of Ovarian cancer Prostate cancer Breast cancer Past Surgical History Surgical History No pertinent past surgical history Social History Smoking Status: Current every day smoker tobacco type: cigarettes Smoking cigarettes per day: 20 Do You Dip or Chew Tobacco: No Hx Alcohol Use: Yes Alcohol type: beer alcohol intake frequency: 3 or more drinks per day Alcohol Intake Frequency Comment: 8-12 beers a day Hx Substance Use: No substance use type: does not use Last Used Substance: Unknown Physical Exam Vital Signs Last Vital Signs Temp 36.7 C 10/03/22 13:01 Pulse 79 10/03/22 13:01 Resp 18 10/03/22 13:01 BP 134/85 10/03/22 13:01 Pulse Ox 99 10/03/22 13:01 O2 Del Method Room Air 10/03/22 13:01 Constitutional no acute distress ENMT Mouth: + edentulous Thyromental Distance: > or= 3.5 Finger Breadths Neck normal visual inspection Respiratory normal respiratory effort Auscultation: lungs clear to auscultation bilaterally Cardiovascular Rate/Rhythm: regular rate and regular rhythm Psychiatric Orientation: alert and oriented x 3 Testing Laboratory Results 10/03/22 08:13 10/03/22 08:13 Urine Color Yellow 09/25/22 00:46 Urine Appearance Clear (Clear) 09/25/22 00:46 Urine pH 5.5 (4.5-7.5) 09/25/22 00:46 Ur Specific [place] 1.006 (1.000-1.030) 09/25/22 00:46 Urine Protein Negative (Negative) 09/25/22 00:46 Urine Glucose (UA) Negative (Negative) 09/25/22 00:46 Urine Ketones Negative (Negative) 09/25/22 00:46 Urine Nitrite Negative (Negative) 09/25/22 00:46 Ur Leukocyte Esterase Negative (Negative) 09/25/22 00:46 10/03/22 13:09 POC Ur Test NEG
[2022-10-03] MEDS ORDERED: ePHEDrine sulfate 50 MG/ML AMP IV PRN (14:16)
[2022-10-03] MEDS ORDERED: ACETAMINOPHEN 1,000 MG/100 ML VIAL IV STA (14:16)
[2022-10-03] MEDS ORDERED: ONDANSETRON INJ 2 MG/ML 2 ML VIAL IV PRN ×2 (14:16→17:15)
[2022-10-03] MEDS ORDERED: ATROPINE SULFATE 0.1 MG/ML 10ML SYR IV PRN (14:16)
[2022-10-03] MEDS ORDERED: BUPIVACAINE/EPINEPHRINE 0.25% 1:200,000 30 ML VIAL INFIL ONE (14:25)
[2022-10-03] MEDS ORDERED: ceFAZolin 2000MG 2,000 MG/15 ML SYR IV ONE (14:45)
[2022-10-03] MEDS ORDERED: ceFAZolin 330 MG/ML 1 GM VIAL ONE (14:51)
--- NOTE | 2022-10-03 15:12 | Operative Report ---
Post Operative Report Pre & Post Diagnosis Operation Date: 10/03/22 12:20 Pre-Op Diagnosis: Lumbosacral disc herniation Post-Op Diagnosis: Lumbosacral disc herniation I identified the patient and participated in the time-out.: Yes Procedure Operation Date: 10/03/22 12:20 Actual Procedures p L5-S1 Decompression and Fusion with spinal cord monitoring(Not Applicable) - Esteban Saucedo DO Surgeon Esteban Saucedo DO Director Of Email Marketing Mandie Morales Estimated Blood Loss 140 Findings See Below Patient had massive disc herniation and had migrated cephalad to the level of L4-L5 disc space. Created significant central lateral recess stenosis. To safely decompress the canal and access the disc herniation to require wide decompression creating iatrogenic instability and subsequent need for surgery. Specimens None Indications This is a 37-year-old female presents above-mentioned diagnosis in light of her neurologic decline and gross strength deficits she is undergoing emergent decompression fusion. Description of Procedure Patient was met with identified informed consent obtained. Patient was then taken to the operative suite underwent an patient placed in a prone position the Gunlock table top Ted frame. All bony promises well-padded eyes inspected to ensure no external pressure placed upon the. This point the lumbar spine was prepped and draped in normal sterile fashion. Sharp dissection with the assistance of Bovie cautery was formed down to and exposing the lamina and transverse processes of L5. From caudal cephalad fashion complete laminectomy L5 was performed partial laminectomy of L4 was performed including bilateral medial facetectomies myotomies to safely access the lateral margins of a markedly compressed central canal. Several massive amounts of disc material were noted along the left lateral recess somewhat even coming up along the lateral aspect of the thecal sac. Fragments were removed all the way up to the disc space of L4-L5 as well as just below the S1 nerve root. After complete decompression of the herniation pedicle screws were placed in L5 and S1 levels bilaterally with assistance of fluoroscopy and appropriate sized garth placed. Bilateral transforaminal approach on the left complete discectomy of L5-S1 was performed endplates curetted to subcortical bleeding bone and a 12 x 26 mm Spira cage filled I factor tapped in position. The rods then locked into final position bilaterally. The transverse processes of L5 and the sacral ala burred to subcortically bone. Infuse collagen sponge, master graft and locally harvested morselized autograft was placed in the posterior gutters. 15 round DAIANA drain inserted. The incision was then closed with 1 Vicryl the fascia 2-0 Vicryl subcutaneously and 4 Monocryl for final skin closure. Steri-Strip sterile dressings placed. Patient waken taken to PACU stable condition. I attest to the content of the Intraoperative Record and any orders documented therein. Any exceptions are noted below.
[2022-10-03] MEDS ORDERED: PROPOFOL IV EMULSION 10 MG/ML 20 ML VIAL IV ONE (15:17)
[2022-10-03] MEDS ORDERED: ACETAMINOPHEN 1000 MG/100 ML IV IV ONE (15:17)
[2022-10-03] MEDS ORDERED: ceFAZolin 330 MG/ML 1 GM VIAL IV ONE (15:17)
[2022-10-03] MEDS ORDERED: ROCURONIUM BROMIDE 10 MG/ML 5 ML VIAL IV ONE (15:17)
[2022-10-03] MEDS ORDERED: HYDROmorphone INJ 1 MG/ML SYRINGE IV ONE (15:17)
[2022-10-03] MEDS ORDERED: SUGAMMADEX SODIUM 200 MG/2 ML VIAL IV ONE (15:17)
[2022-10-03] MEDS ORDERED: HYDROmorphone INJ 2 MG/ML SYR/VIAL IV ONE (15:17)
[2022-10-03] MEDS ORDERED: LIDOCAINE 2% MPF LOCAL 5 ML VIAL INFIL ONE (15:17)
[2022-10-03] MEDS ORDERED: DEXAMETHASONE SOD INJ 4 MG/ML VIAL IV ONE (15:17)
[2022-10-03] MEDS ORDERED: ONDANSETRON INJ 2 MG/ML 2 ML VIAL IV ONE (15:17)
[2022-10-03] MEDS ORDERED: fentaNYL citrate PF 100 MCG/2 ML VIAL IV ONE (15:17)
[2022-10-03] MEDS ORDERED: MIDAZOLAM HCL 1 MG/ML 2ML VIAL IV ONE (15:17)
--- NOTE | 2022-10-03 15:21 | Fluoroscopy Report ---
FL lumbar spine 2-3V CLINICAL HISTORY: L5-S1 DFI COMPARISON STUDY: Lumbar spine MRI 09/26/2022 FLUOROSCOPY TIME: 21.1 seconds FLUOROSCOPY IMAGES: 2 EXPOSURE DOSE: 17.80 mGy FINDINGS: Posterior interbody garth and screw fusion with discectomy at L5-S1. Hardware appears intact. No unexpected opaque foreign bodies identified. No acute fracture seen. IMPRESSION: Fluoroscopic assistance as above. ACT 112: Negative or not required by law. Electronically signed by: Burke Crenshaw M.D. 10/03/2022 3:19 PM
[2022-10-03] MEDS ORDERED: FLOSEAL HEMOSTATIC MATRIX 10ML TOP ONE (15:30)
[2022-10-03] MEDS: HYDROmorphone INJ 1 MG/ML SYRINGE IV PRN ×6 (15:42→16:18)
--- NOTE | 2022-10-03 16:30 | Anesthesiology Progress Note ---
Date of Service October 03, 2022 Anesthesia Post Procedure Vital Signs Vital Signs: Temp Pulse Pulse Pulse Resp BP BP 10/03/22 15:50 74 20 138/94 10/03/22 16:20 36.5 C 73 15 128/85 10/03/22 16:10 71 18 136/93 10/03/22 16:00 72 22 127/90 10/03/22 15:40 73 18 120/86 10/03/22 15:30 73 20 132/89 10/03/22 15:28 36.2 C L 75 16 116/82 10/03/22 13:01 36.7 C 79 18 134/85 10/03/22 07:11 36.4 C L 79 14 119/77 10/02/22 20:31 36.9 C 103 H 15 137/84 Pulse Ox O2 Del Method O2 Flow Rate 10/03/22 15:50 97 Oxymask 3 10/03/22 16:20 98 Room Air 10/03/22 16:10 99 Room Air 10/03/22 16:00 98 Room Air 10/03/22 15:40 100 Oxymask 6 10/03/22 15:30 100 Oxymask 6 10/03/22 15:28 100 Oxymask 6 10/03/22 13:01 99 Room Air 10/03/22 07:11 97 Room Air 10/02/22 20:31 96 Room Air Pain Intensity Buttock: Pain Intensity: 8 Left Leg: Pain Intensity: 7 Back: Pain Intensity: 5 Transfer of Care Handoff Completed per policy Notes Mental Status: alert / awake / arousable and participated in evaluation Patient Amnestic to Procedure: Yes Nausea / Vomiting: adequately controlled Pain: adequately controlled Airway Patency, RR, SpO2: stable & adequate BP & HR: stable & adequate Hydration State: stable & adequate Anesthetic Complications: no major complications apparent and Pt Satisfied with anesthetic care
[2022-10-03] MEDS ORDERED: ONDANSETRON 4 MG OD TAB PO PRN (17:15)
[2022-10-03] MEDS ORDERED: ACETAMINOPHEN 1,000 MG/100 ML VIAL IV PRN (17:15)
[2022-10-03] MEDS ORDERED: SOD PHOSPHATE/SOD BIPHOSPHATE ENEMA 132 ML BTL PR PRN (17:15)
[2022-10-03] MEDS ORDERED: PROMETHAZINE HCL 12.5 MG in SODIUM CHLORIDE 0.9% 50 ML IV PRN (17:15)
[2022-10-03] MEDS ORDERED: MAGNESIUM HYDROXIDE SUSP 30 ML UDC PO PRN (17:15)
[2022-10-03] MEDS ORDERED: diphenhydrAMINE Capsule 25 MG CAP PO PRN (17:15)
[2022-10-03] MEDS ORDERED: DO NOT ADMINISTER PNEUMOCOCCAL VACCINE PRN (17:15)
[2022-10-03] MEDS ORDERED: hydrOXYzine HCl 25 MG TAB PO PRN (17:15)
[2022-10-03] MEDS ORDERED: DO NOT ADMINISTER FLU VACCINE PRN (17:15)
[2022-10-03] MEDS ORDERED: traMADol HCL 50 MG TABLET PO PRN (17:15)
[2022-10-03] MEDS ORDERED: LORazepam 2 MG/1 ML VIAL IV PRN (17:15)
[2022-10-03] MEDS ORDERED: METOCLOPRAMIDE HCL INJ 5 MG/ML 2 ML VIAL IV PRN (17:15)
[2022-10-03] MEDS ORDERED: ALUMINUM/MAGNESIUM SUSP 30 ML UDC PO PRN (17:15)
[2022-10-03] MEDS ORDERED: bisacodyL 10 MG SUPP PR PRN (17:15)
[2022-10-03] MEDS ORDERED: HYDROmorphone INJ 0.5 MG/0.5 ML SYR IV PRN (17:15)
[2022-10-03] MEDS ORDERED: NALOXONE HCL 0.4 MG/1 ML VIAL/CARP IV PRN (17:15)
[2022-10-03] MEDS: LACTATED RINGER'S 1,000 ML IV SCH (17:33)
[2022-10-03] MEDS: DOCUSATE SODIUM/SENNA 50/8.6MG TAB PO SCH (20:18)
[2022-10-03] MEDS: ceFAZolin 2000MG 2,000 MG/15 ML SYR IV SCH (20:19)
[2022-10-04] MEDS: oxyCODONE HCL IR 5 MG TAB (IMMEDIATE RELEASE) PO PRN ×4 (00:19→17:13)
[2022-10-04] MEDS: LACTATED RINGER'S 1,000 ML IV SCH (04:12)
[2022-10-04] MEDS: ceFAZolin 2000MG 2,000 MG/15 ML SYR IV SCH (04:23)
[2022-10-04] MEDS: POLYETHYLENE (MIRALAX) 17 GM PACK PO SCH ×4 (05:43→23:43)
[2022-10-04] MEDS: LEVOTHYROXINE SODIUM 112 MCG TABLET PO SCH (05:43)
[2022-10-04] MEDS: HYDROmorphone INJ 1 MG/ML SYRINGE IV PRN ×2 (07:46→22:22)
[2022-10-04 08:48] LABS: Hematocrit (blood only) 28.7 % (37.0-47.0); Hemoglobin 9.1 g/dl (12.0-16.0); Mean Corpuscular Hgb Conc 31.7 g/dL (32.0-36.0); Mean Corpuscular Volume 88.3 fL (80.0-100.0); Mean Platelet Volume 9.1 fL (9.4-12.4); Nucleated RBC # (auto) 0.05 K/uL (0-0.12); Nucleated RBC % (auto) 0.6 %; Platelet Count 247 K/uL (130-400); RDW Coefficient of Variation 20.3 % (11.5-14.5); RDW Standard Deviation 65.8 fL (36.4-46.3); Red Blood Count 3.25 M/uL (4.20-5.40)
[2022-10-04] MEDS: FOLIC ACID 1 MG TAB PO SCH (08:48)
[2022-10-04] MEDS: THIAMINE HCL 100 MG TAB PO SCH (08:48)
[2022-10-04] MEDS: NICOTINE 21 MG/24 HR TDSY TD SCH (08:49)
[2022-10-04] MEDS: dexAMETHasone 6 MG in SYRINGE 0 ML IV SCH (08:49)
[2022-10-04 09:08] LABS: BUN Creatinine Ratio 18.3 (10-20); Calcium 8.4 mg/dl (8.5-10.1); Creatinine Clr Calc Pharmacy 113.1 ml/min; Est GFR (African American) 125.2 ml/min; Est GFR (Non-African American) 108.1 ml/min; Potassium 3.8 mmol/L (3.5-5.1)
[2022-10-04 09:16] LABS: Anisocytosis Present; Basophils # (auto) 0.02 K/uL (0-0.2); Basophils % (auto) 0.2 %; Eosinophils # (auto) 0.01 K/uL (0-0.50); Eosinophils % (auto) 0.1 %; Immature Granulocytes # (auto) 0.61 K/uL (0.01-0.20); Immature Granulocytes % (auto) 6.8 %; Lymphocytes % (auto) 26.7 %; Monocytes # (auto) 1.09 K/uL (0.11-0.59); Monocytes % (auto) 12.1 %; Neutrophils # (auto) 4.87 K/uL (1.40-6.50); Neutrophils % (auto) 54.1 %; Polychromasia 1+; Stomatocytes 1+
--- NOTE | 2022-10-04 13:06 | Hospitalist Progress Note ---
Date of Service October 04, 2022 Assessment & Plan (1) Lumbosacral disc herniation: Plan: Patient has had Left foot drop for several weeks, but got worse in the past couple of weeks prior to hospital presentation foot x ray did not show any acute pathology Lumbar x ray showed only mild degenerative changes However MRI Lumbar showed large disc extrusion at L5-S1 She is now post L5-S1 Decompression and Fusion Drain with scant bloody fluid Continue PT/OT Will need rehab (2) Alcohol use with withdrawal: Plan: patient is a chronic alcoholic, admitted to the hospital and found to be in withdrawal. Last drink was the day of presentation. beverage of choice is beer By her own admission, she has had withdrawal seizures in the past -has not had tremors in many days. CIWA has been discontinued (3) Chronic hyponatremia: Plan: Most likely due to beer potomania serum sodium close to baseline monitor (4) Abnormal LFTs: Plan: Due to alcohol abuse Monitor (5) Alcohol abuse: Plan: patient has been advised to quit alcohol (6) Foot drop: Plan: see 1 Plan will need rehab Admission and Anticipated Discharge Date Admission Date: September 24, 2022 Subjective patient seen and examined, she is stable post surgery Review of Systems Review of Systems: All systems reviewed are negative, apart from the ones contained in the history. Physical Exam Physical Exam: The patient is awake, alert and oriented 3, well developed and well nourished, normocephalic and atraumatic, lying in bed and in no acute distress. HEENT--PERRL, EOMI, mucous membranes and oropharynx mildly dry Neck--supple. No JVD. No bruits. Thyroid normal, trachea midline, no adenopathy. Heart--normal S1 and S2. No murmurs, rubs or gallops. Lungs--clear bilaterally, no respiratory distress, no accessory muscle use. Abdomen--normal bowel sounds and soft. Extremities--no cyanosis or clubbing. No edema. Dermatologic--normal skin turgor, normal color, no abnormal lymph nodes, no rash. Neurologic--cranial nerves II through XII grossly intact. left lower extremity weakness, drop foot Rheumatologic--normal range of motion. Psychiatric--normal affect. Results & Data Results & Data Vital Signs (Past 12 Hours) Vital Signs Temp Pulse Resp BP Pulse Ox O2 Del Method 10/04/22 11:14 98.2 F 89 19 122/73 95 Room Air 10/04/22 07:11 98.8 F 93 H 16 106/63 96 Room Air 10/04/22 03:22 99.5 F 95 H 16 108/64 96 Room Air PG Care Time/CCT Total # of Minutes Spent Total Time Spent with Patient: Total time spent is greater than 50% in coordination of care (as documented) at patient's floor/unit and/or counseling patient: Coding Level of Care Code 28952 SUB INP/OBS CARE 2/35MIN Diagnoses Lumbosacral disc herniation M51.27 Alcohol use with withdrawal F10.939 Chronic hyponatremia E87.1 Abnormal LFTs R79.89 Alcohol abuse F10.10 Foot drop M21.379 Time Spent (min) 35
--- NOTE | 2022-10-04 13:55 | Orthopedic Progress Note ---
Date of Service October 04, 2022 Assessment & Plan (1) Lumbosacral disc herniation: Plan: This time we will continue physical therapy see if we can get her to rehab in the next few days. I did emphasize to the patient that the foot drop is established may be present for a conserve amount of time if there is resolution. She can continue with therapy as tolerated. Admission and Anticipated Discharge Date Admission Date: September 24, 2022 Subjective Patient's back pain is controlled left radicular pain markedly improved. Physical Exam Physical Exam: On exam she continues to have a foot drop on the left but is markedly more comfortable. Results & Data Vital Signs (Past 12 Hours) Vital Signs Temp Pulse Resp BP Pulse Ox O2 Del Method 10/04/22 11:14 36.8 C 89 19 122/73 95 Room Air 10/04/22 07:11 37.1 C 93 H 16 106/63 96 Room Air 10/04/22 03:22 37.5 C 95 H 16 108/64 96 Room Air
[2022-10-04] MEDS: DOCUSATE SODIUM/SENNA 50/8.6MG TAB PO SCH (20:50)
[2022-10-04] MEDS: MELATONIN 3 MG TAB PO PRN (22:22)
[2022-10-05] MEDS: POLYETHYLENE (MIRALAX) 17 GM PACK PO SCH ×4 (05:46→23:21)
[2022-10-05] MEDS: LEVOTHYROXINE SODIUM 112 MCG TABLET PO SCH (05:46)
[2022-10-05] MEDS: HYDROmorphone INJ 1 MG/ML SYRINGE IV PRN ×2 (05:52→20:38)
[2022-10-05 07:04] LABS: Hematocrit (blood only) 28.6 % (37.0-47.0); Hemoglobin 9.2 g/dl (12.0-16.0); Mean Corpuscular Hemoglobin 28.1 pg (25.0-34.0); Mean Corpuscular Hgb Conc 32.2 g/dL (32.0-36.0); Mean Corpuscular Volume 87.5 fL (80.0-100.0); Mean Platelet Volume 9.3 fL (9.4-12.4); Nucleated RBC # (auto) 0.03 K/uL (0-0.12); Nucleated RBC % (auto) 0.3 %; Platelet Count 286 K/uL (130-400); RDW Coefficient of Variation 20.1 % (11.5-14.5); RDW Standard Deviation 64.9 fL (36.4-46.3); Red Blood Count 3.27 M/uL (4.20-5.40); White Blood Count 10.86 K/ul (4.8-10.8)
[2022-10-05 07:27] LABS: BUN Creatinine Ratio 21.7 (10-20); Creatinine Clr Calc Pharmacy 116.4 ml/min; Est GFR (Non-African American) 110.4 ml/min
[2022-10-05] MEDS: THIAMINE HCL 100 MG TAB PO SCH (09:07)
[2022-10-05] MEDS: NICOTINE 21 MG/24 HR TDSY TD SCH (09:07)
[2022-10-05] MEDS: dexAMETHasone 6 MG in SYRINGE 0 ML IV SCH ×2 (09:08→10:04)
[2022-10-05] MEDS: FOLIC ACID 1 MG TAB PO SCH (09:29)
--- NOTE | 2022-10-05 11:29 | Orthopedic Progress Note ---
Date of Service October 05, 2022 Assessment & Plan (1) Lumbosacral disc herniation: Plan: This time we will continue physical therapy monitor her DAIANA operatively discharge to rehab early next week. Admission and Anticipated Discharge Date Admission Date: September 24, 2022 Subjective Back pain controlled leg pain improved Physical Exam Physical Exam: Patient is sitting up in bed. She continues to have foot drop to the left lower extremity. She does appear comfortable. Results & Data Vital Signs (Past 12 Hours) Vital Signs Temp Pulse Resp BP Pulse Ox O2 Del Method 10/05/22 07:26 36.7 C 62 16 104/70 99 Room Air
[2022-10-05] MEDS: oxyCODONE HCL IR 5 MG TAB (IMMEDIATE RELEASE) PO PRN ×2 (11:55→23:20)
--- NOTE | 2022-10-05 12:41 | Hospitalist Progress Note ---
Date of Service October 05, 2022 Assessment & Plan (1) Lumbosacral disc herniation: Plan: Patient has had Left foot drop for several weeks, but got worse in the past couple of weeks prior to hospital presentation foot x ray did not show any acute pathology Lumbar x ray showed only mild degenerative changes However MRI Lumbar showed large disc extrusion at L5-S1 She is now post L5-S1 Decompression and Fusion DAIANA Drain with scant bloody fluid Continue PT/OT Will need rehab, hopefully early next week (2) Alcohol use with withdrawal: Plan: patient is a chronic alcoholic, admitted to the hospital and found to be in withdrawal. Last drink was the day of presentation. beverage of choice is beer By her own admission, she has had withdrawal seizures in the past -has not had tremors in many days. CIWA has been discontinued (3) Chronic hyponatremia: Plan: Most likely due to beer potomania serum sodium close to baseline, 133 today monitor (4) Abnormal LFTs: Plan: Due to alcohol abuse Monitor (5) Alcohol abuse: Plan: patient has been advised to quit alcohol (6) Foot drop: Plan: see 1 Plan will need rehab when bed available Admission and Anticipated Discharge Date Admission Date: September 24, 2022 Subjective Back pain controlled leg pain improved Review of Systems Review of Systems: All systems reviewed are negative, apart from the ones contained in the history. Physical Exam Physical Exam: The patient is awake, alert and oriented 3, well developed and well nourished, normocephalic and atraumatic, lying in bed and in no acute distress. HEENT--PERRL, EOMI, mucous membranes and oropharynx mildly dry Neck--supple. No JVD. No bruits. Thyroid normal, trachea midline, no adenopathy. Heart--normal S1 and S2. No murmurs, rubs or gallops. Lungs--clear bilaterally, no respiratory distress, no accessory muscle use. Abdomen--normal bowel sounds and soft. Extremities--no cyanosis or clubbing. No edema. Dermatologic--normal skin turgor, normal color, no abnormal lymph nodes, no rash. Neurologic--cranial nerves II through XII grossly intact. left lower extremity weakness, drop foot Rheumatologic--normal range of motion. Psychiatric--normal affect. Results & Data Results & Data Vital Signs (Past 12 Hours) Vital Signs Temp Pulse Resp BP Pulse Ox O2 Del Method 03/18/23 07:26 98.1 F 62 16 104/70 99 Room Air PG Care Time/CCT Total # of Minutes Spent Total Time Spent with Patient: Total time spent is greater than 50% in coordination of care (as documented) at patient's floor/unit and/or counseling patient: Coding Level of Care Code 04740 SUB INP/OBS CARE 2/35MIN Diagnoses Lumbosacral disc herniation M51.27 Alcohol use with withdrawal F10.939 Chronic hyponatremia E87.1 Abnormal LFTs R79.89 Alcohol abuse F10.10 Foot drop M21.379 Time Spent (min) 35
[2022-10-05] MEDS: DOCUSATE SODIUM/SENNA 50/8.6MG TAB PO SCH (20:32)
[2022-10-05] MEDS: MELATONIN 3 MG TAB PO PRN (20:38)
[2022-10-06] MEDS: HYDROmorphone INJ 1 MG/ML SYRINGE IV PRN ×3 (00:46→20:14)
[2022-10-06] MEDS: LEVOTHYROXINE SODIUM 112 MCG TABLET PO SCH (06:07)
[2022-10-06] MEDS: POLYETHYLENE (MIRALAX) 17 GM PACK PO SCH ×4 (06:07→23:25)
[2022-10-06] MEDS: oxyCODONE HCL IR 5 MG TAB (IMMEDIATE RELEASE) PO PRN ×2 (06:15→11:04)
--- NOTE | 2022-10-06 08:03 | Orthopedic Progress Note ---
Date of Service October 06, 2022 Assessment & Plan (1) Lumbosacral disc herniation: Plan: At this time we will obtain bilateral lower extremity Dopplers to rule out DVT. In the interim we will continue physical therapy and hope for rehab tomorrow. I will maintain the DAIANA drain until Friday. Admission and Anticipated Discharge Date Admission Date: September 24, 2022 Subjective Patient has complaints of bilateral lower extremity swelling. She denies any radicular complaints. Continued weakness noted to left lower extremity. She is tolerating physical therapy. Physical Exam Physical Exam: On exam she does have some swelling to bilateral extremities. There is no erythema nontender to palpation. Still persistent foot drop to the left lower extremity. Drain is functional. Results & Data Vital Signs (Past 12 Hours) Vital Signs Temp Pulse Resp BP BP Pulse Ox O2 Del Method 10/06/22 07:15 36.9 C 94 H 18 137/89 96 Room Air 10/05/22 20:30 Room Air 10/05/22 20:26 36.9 C 94 H 16 126/81 100 Room Air
[2022-10-06] MEDS: THIAMINE HCL 100 MG TAB PO SCH (08:30)
[2022-10-06] MEDS: FOLIC ACID 1 MG TAB PO SCH (08:30)
[2022-10-06] MEDS: dexAMETHasone 6 MG in SYRINGE 0 ML IV SCH (08:30)
[2022-10-06] MEDS: NICOTINE 21 MG/24 HR TDSY TD SCH (08:32)
--- NOTE | 2022-10-06 10:55 | Hospitalist Progress Note ---
Date of Service October 06, 2022 Assessment & Plan (1) Lumbosacral disc herniation: Plan: Patient said she has had Left foot drop for several weeks, but it got worse in the past couple of weeks prior to hospital presentation A foot x ray did not show any acute pathology Lumbar x ray showed only mild degenerative changes However MRI Lumbar showed large disc extrusion at L5-S1 She is now post L5-S1 Decompression and Fusion DAIANA Drain with scant bloody fluid, will likely remove tomorrow Continue PT/OT Will need rehab, hopefully early next week Appreciate Dr Saucedo (2) Alcohol use with withdrawal: Plan: Resolved, now stable (3) Chronic hyponatremia: Plan: Most likely due to beer potomania serum sodium close to baseline, monitor (4) Abnormal LFTs: Plan: Due to alcohol abuse Monitor (5) Alcohol abuse: Plan: patient has been advised to quit alcohol (6) Foot drop: Plan: see 1 Plan will need rehab when bed available Patient complained of leg and thigh swelling, maybe some developing murillo facie and abd striae. Steroid has been discontinued Admission and Anticipated Discharge Date Admission Date: September 24, 2022 Subjective patient seen and examined, said her thighs and legs are getting swollen, said the pain is under fair control though Review of Systems Review of Systems: All systems reviewed are negative, apart from the ones contained in the history. Physical Exam Physical Exam: The patient is awake, alert and oriented 3, well developed and well nourished, normocephalic and atraumatic, lying in bed and in no acute distress. HEENT--PERRL, EOMI, mucous membranes and oropharynx mildly dry Neck--supple. No JVD. No bruits. Thyroid normal, trachea midline, no adenopathy. Heart--normal S1 and S2. No murmurs, rubs or gallops. Lungs--clear bilaterally, no respiratory distress, no accessory muscle use. Abdomen--normal bowel sounds and soft. Extremities--no cyanosis or clubbing. No edema. Dermatologic--normal skin turgor, normal color, no abnormal lymph nodes, no rash. Neurologic--cranial nerves II through XII grossly intact. left lower extremity weakness, drop foot Rheumatologic--normal range of motion. Psychiatric--normal affect. Results & Data Results & Data Vital Signs (Past 12 Hours) Vital Signs Temp Pulse Resp BP Pulse Ox O2 Del Method 03/19/23 07:15 98.4 F 94 H 18 137/89 96 Room Air PG Care Time/CCT Total # of Minutes Spent Total Time Spent with Patient: Total time spent is greater than 50% in coordination of care (as documented) at patient's floor/unit and/or counseling patient: Coding Level of Care Code 33535 SUB INP/OBS CARE 2/35MIN Diagnoses Lumbosacral disc herniation M51.27 Alcohol use with withdrawal F10.939 Chronic hyponatremia E87.1 Abnormal LFTs R79.89 Alcohol abuse F10.10 Foot drop M21.379 Time Spent (min) 35
--- NOTE | 2022-10-06 11:53 | Ultrasound Report ---
BILATERAL LOWER EXTREMITY VENOUS DOPPLER HISTORY: Bilateral leg swelling COMPARISON STUDY: None. FINDINGS: There is normal compressibility, flow, and augmentation within the bilateral lower extremit y deep venous systems. IMPRESSION: No DVT within the right or left lower extremity. ACT 112: Negative or not required by law. Electronically signed by: Prashant Perea M.D. 10/06/2022 11:52 AM
[2022-10-06] MEDS: DOCUSATE SODIUM/SENNA 50/8.6MG TAB PO SCH (20:02)
[2022-10-06] MEDS: FAMOTIDINE 20 MG TAB PO PRN (20:13)
[2022-10-06] MEDS: MELATONIN 3 MG TAB PO PRN (20:13)
[2022-10-06] MEDS: LORazepam 0.5 MG TAB PO PRN (23:24)
[2022-10-07] MEDS: POLYETHYLENE (MIRALAX) 17 GM PACK PO SCH (04:50)
[2022-10-07] MEDS: HYDROmorphone INJ 1 MG/ML SYRINGE IV PRN (04:50)
[2022-10-07] MEDS: LEVOTHYROXINE SODIUM 112 MCG TABLET PO SCH (04:51)
[2022-10-07 06:45] LABS: Hematocrit (blood only) 29.6 % (37.0-47.0); Hemoglobin 9.6 g/dl (12.0-16.0); Mean Corpuscular Hgb Conc 32.4 g/dL (32.0-36.0); Mean Corpuscular Volume 86.3 fL (80.0-100.0); Mean Platelet Volume 9.3 fL (9.4-12.4); Platelet Count 387 K/uL (130-400); RDW Coefficient of Variation 20.6 % (11.5-14.5); RDW Standard Deviation 65.4 fL (36.4-46.3); Red Blood Count 3.43 M/uL (4.20-5.40); White Blood Count 13.15 K/ul (4.8-10.8)
[2022-10-07 06:52] LABS: BUN Creatinine Ratio 28.3 (10-20); Calcium 9.1 mg/dl (8.5-10.1); Creatinine Clr Calc Pharmacy 133.9 ml/min; Est GFR (Non-African American) 115.6 ml/min
[2022-10-07] MEDS: oxyCODONE HCL IR 5 MG TAB (IMMEDIATE RELEASE) PO PRN ×3 (08:56→18:23)
[2022-10-07] MEDS: THIAMINE HCL 100 MG TAB PO SCH (08:56)
[2022-10-07] MEDS: FOLIC ACID 1 MG TAB PO SCH (08:56)
[2022-10-07] MEDS: NICOTINE 21 MG/24 HR TDSY TD SCH (08:57)
[2022-10-07] MEDS: ACETAMINOPHEN 500 MG TAB PO PRN (11:08)
[2022-10-07] MEDS ORDERED: FUROSEMIDE 40 MG/4 ML VIAL IV STA (11:35)
[2022-10-07] MEDS ORDERED: ALUMINUM/MAGNESIUM SUSP 30 ML UDC PO PRN (11:35)
[2022-10-07] MEDS: NYSTATIN CR 15 GM TUBE EXT SCH ×2 (14:10→20:07)
--- NOTE | 2022-10-07 14:46 | Hospitalist Progress Note ---
Date of Service October 07, 2022 Assessment & Plan (1) Lumbosacral disc herniation: Plan: At L5-S1. Status post decompression and fusion. Appreciate orthopedic consulta tion and recommendations. Foot drop has resolved. Postoperative drain will be removed today or tomorrow. (2) Alcohol use with withdrawal: Plan: Resolved. Supportive care (3) Chronic hyponatremia: Plan: Most likely due to beer potomania. Mild. No intervention necessary at this time. Serial labs (4) Abnormal LFTs: Plan: Due to alcohol abuse. Improving. No intervention necessary at this timer (5) Alcohol abuse: Plan: patient has been advised to stop alcohol intake (6) Foot drop: Plan: Due to herniated disc present on admission. Now resolved (7) Leg edema: Plan: Bilateral lower extremity edema from combination of fluid overload and parenteral steroid therapy. IV fluids and steroids have been discontinued. Will administer parenteral Lasix x1 today, October 07. Edema will eventually resolve (8) Chest pain: Plan: Appears to be of esophageal etiology. We will use liquid antacids as needed Plan Anticipate eventual discharge to [facility] this week. Admission and Anticipated Discharge Date Admission Date: September 24, 2022 Subjective Alert and oriented. No acute distress. She is most concerned with leg edema which appears to be due to volume overload. Venous Doppler evaluation of both legs negative for DVT. Will diurese with Lasix today, October 07. Liquid antiacids ordered as needed for intermittent chest pain that appears to be of esophageal rather than cardiac origin. Mild acute blood loss anemia persists postoperatively with hemoglobin uptrending at this time Review of Systems Review of Systems: Constitutional-no fever or chills ENT-no blurred vision, no double vision, no epistaxis, no sore throat Respiratory-no cough, no wheezing, no shortness of breath Cardiac-no palpitations, no syncope. Intermittent chest discomfort appears to be of esophageal origin GI-no nausea, vomiting, diarrhea, melena, hematochezia -no urinary retention, no urinary incontinence, no dysuria, no hematuria Musculoskeletal-no joint pain, no muscle tenderness Skin-no bruising, no rashes, no pruritus Neuro-no isolated weakness, no paresthesia, no weakness Psych-no depression, no anxiety Physical Exam Physical Exam: General-alert and oriented x3, no fevers, no chills HEENT-head atraumatic and normocephalic, pupils equal and reactive to light, extraocular muscles intact Neck-no lymphadenopathy or thyromegaly, trachea midline Chest-clear to auscultation percussion. No rales wheezing or rhonchi Cardiac-regular rate and rhythm, normal S1 and S2, no murmurs Abdomen-normal bowel sounds, nontender, no hepatosplenomegaly Extremities-mild pitting edema bilateral lower extremities Neuro-cranial nerves II through XII intact, motor and sensory function within normal limits, strength symmetrical , no focal deficits Psych-normal affect, normal mood Results & Data Results & Data Vital Signs (Past 12 Hours) Vital Signs Temp Pulse Resp BP Pulse Ox O2 Del Method 10/07/22 07:18 36.6 C 85 18 118/76 100 Room Air Laboratory Results 10/07/22 06:03 10/07/22 06:03 PG Care Time/CCT Total # of Minutes Spent Total Time Spent with Patient: Total time spent is greater than 50% in coordination of care (as documented) at patient's floor/unit and/or counseling patient: Coding Level of Care Code 10287 SUB INP/OBS CARE 3/50MIN Diagnoses Lumbosacral disc herniation M51.27 Alcohol use with withdrawal F10.939 Chronic hyponatremia E87.1 Abnormal LFTs R79.89 Alcohol abuse F10.10 Foot drop M21.379 Leg edema R60.0 Chest pain R07.9 Chest pain type: unspecified (8) Chest pain Chest pain type: unspecified Qualified Code(s): R07.9 - Chest pain, unspecified
[2022-10-07] MEDS: DOCUSATE SODIUM/SENNA 50/8.6MG TAB PO SCH (20:08)
[2022-10-07] MEDS: FAMOTIDINE 20 MG TAB PO PRN (23:39)
[2022-10-07] MEDS: LORazepam 0.5 MG TAB PO PRN (23:39)
[2022-10-08] MEDS: oxyCODONE HCL IR 5 MG TAB (IMMEDIATE RELEASE) PO PRN ×3 (04:33→14:43)
[2022-10-08] MEDS: LEVOTHYROXINE SODIUM 112 MCG TABLET PO SCH (04:34)
[2022-10-08] MEDS: FOLIC ACID 1 MG TAB PO SCH (09:28)
[2022-10-08] MEDS: NICOTINE 21 MG/24 HR TDSY TD SCH (09:28)
[2022-10-08] MEDS: THIAMINE HCL 100 MG TAB PO SCH (09:28)
[2022-10-08] MEDS: NYSTATIN CR 15 GM TUBE EXT SCH (09:29)
[2022-10-08] MEDS: ACETAMINOPHEN 500 MG TAB PO PRN (11:03)
[2022-10-08] MEDS ORDERED: FUROSEMIDE 40 MG/4 ML VIAL IV STA (12:12)
--- NOTE | 2022-10-08 12:35 | Discharge Summary ---
Date of Service October 08, 2022 Admission HPI Per Admitting Provider Ameena Mckeon is a 37F with history of chronic hyponatremia, pancreatitis, tobacco abuse disorder, alcohol abuse, sciatica, hypothyroidism, and anxiety to presents for evaluation of leg spasms and withdrawal symptoms. She is being admitted for management of alcohol withdrawal. Patient notes that she came into the ER today because she was experiencing 'withdrawal symptoms' for the last two days. She notes that her hands have been very shaky and that she has been having spasms in her legs, much worse in the left leg. She also endorses experiencing auditory and visual hallucinations. Patient notes that she normally drinks 8-10 Beers per day and has been drinking at least this many for the last month. She also has smoked 1 PPD of cigarettes for the last 22 years. Patient was seen in the ER 2 weeks ago for a suspected, non-witnessed, alcohol withdrawal seizure. Patient has a chronic history of left lumbar back pain w/ associated sciatica. She has been seen in the ER 3 times in the last month for back pain, each evaluation has been unrevealing. Patient notes that she manages her pain with Ibuprofen at home, but it does not help. She is most concerned about the new muscle spasms that she is having in her left leg. She denies saddle anesthesia or leg weakness, but notes that she is walking funny d/t the spasms. She also endorses 2-3 days of bowel/bladder incontinence. Patient was planned to go to [facility] for detox/rehab 2 weeks ago, she notes that she was never picked up to go to treatment. She notes she is willing to receive rehabilitation, but she would prefer to detox here. She denies any chest pain, shortness of breath, abdominal pain, or headaches. ER Course: Librium + Thiamine/Vitamins/NSS 1L Principal Diagnosis Herniated lumbar disc with lumbar radiculopathy and foot drop, esophageal chest pain, fluid overload with edema, alcohol withdrawal Discharge Exam General-alert and oriented x3, no fevers, no chills HEENT-head atraumatic and normocephalic, pupils equal and reactive to light, extraocular muscles intact Neck-no lymphadenopathy or thyromegaly, trachea midline Chest-clear to auscultation percussion. No rales wheezing or rhonchi Cardiac-regular rate and rhythm, normal S1 and S2, no murmurs Abdomen-normal bowel sounds, nontender, no hepatosplenomegaly Extremities-mild pitting edema bilateral lower extremities Neuro-cranial nerves II through XII intact, motor and sensory function within normal limits, strength symmetrical , no focal deficits Psych-normal affect, normal mood Discharge Data Allergies Allergy/AdvReac Type Severity Reaction Status Date / Time adhesive Allergy Intermediate SKIN Verified 09/25/22 00:05 BLISTER, TORN OFF SKIN WHEN REMOVED raspberry Allergy Unknown Verified 10/06/22 11:34 Tea Leaves Allergy Unknown Uncoded 10/06/22 11:34 Consultations 09/24/22 20:57 ED Decision to Admit Stat 09/25/22 17:29 Consult Orthopedic Surgery Routine 10/02/22 15:32 Consult Orthopedic Surgery Routine Procedures Performed Operation Date: 10/03/22 12:20 Actual Procedures p L5-S1 Decompression and Fusion with spinal cord monitoring(Not Applicable) - Esteban Saucedo DO Ordered Studies 09/26/22 14:49 MR lumbar spine wo con Routine 10/03/22 FL lumbar spine 2-3V Routine 10/06/22 08:01 US venous doppler LE Urgent Hospital Course (1) Lumbosacral disc herniation: At L5-S1. Status post decompression and fusion. Appreciate orthopedic consultation and recommendations. Foot drop has resolved. Postoperative drain has been removed (2) Alcohol use with withdrawal: Resolved. Supportive care (3) Chronic hyponatremia: Most likely due to beer potomania. Mild. No intervention necessary at this time. Serial labs (4) Abnormal LFTs: Due to alcohol abuse. Improving. No intervention necessary at this timer (5) Alcohol abuse: patient has been advised to stop alcohol intake (6) Foot drop: Due to herniated disc present on admission. Now resolved (7) Leg edema: Bilateral lower extremity edema from combination of fluid overload and parenteral steroid therapy. IV fluids and steroids have been discontinued. Treated while hospitalized with intravenous Lasix. Edema will eventually resolve (8) Chest pain: Appears to be of esophageal etiology. reated with liquid antacids as needed Plan Discharge to [facility] inpatient rehabilitation today, October 08 Total Time Total Time Spent Total Time Spent (In Minutes): 40 minutes Discharge Plan Discharge Items Patient Disposition: Transfer Inpatient Rehab Fac Reason For Visit: ALCOHOL WITHDRAWAL Discharge Diagnosis: Lumbar herniated disc with lumbar radiculopathy and foot drop, noncardiac chest pain, fluid overload with edema, alcohol withdrawal Condition on Discharge: Good Activity: As commented below Non-emergency contact: Primary Care Provider Call non-emergency contact if: you have any medication questions Follow-up/Referrals: Khadra Vallejo MD [Primary Care Provider] - Diet: Regular Addtl Attending Provider Instructions: ACTIVITY RECOMMENDATIONS: SELF CARE INSTRUCTIONS AFTER THORACIC/LUMBAR FUSIONS 1. You may walk to your tolerance. It is good exercise for your legs and back. Expect some back and intermittent leg aches and pains. 2. You may perform "counter-top" level activities (make a sandwich, sangeetha with a project, etc.). 3. No bending or lifting of more than 10 pounds or back twisting of any nature (roll like a log when turning in bed). 4. You may ride in a car for 20-30 minutes at a time. No driving until after your first visit with your doctor. 5. Frequent changes of position and restricting sitting to 30 minutes at a time will help limit the amount of back spasms and stiffness you may experience. 6. You may discontinue the use of ambulatory aids (cane, crutches, etc.) once your strength and confidence allow. 7. You may welding machine operator gas metal arc the shower and let water strike your incision when you arrive home at least once daily. Do not take a tub bath, sit in a hot tub or go into a swimming pool until after your first recheck in the office. SPECIAL CARE INSTRUCTIONS: VERY IMPORTANT TO READ AND REVIEW A. Your surgical incision has been closed with a cosmetic suture under the skin that will dissolve in about 6 weeks. In 14 days, you can use a pair of clean scissors and cut the suture that is left outside of the skin at the ends of your incision. 1. The small skin tapes can be removed 7 days after surgery if they have not fallen off by that point. 2. You may keep the wound open to air as much as possible to promote healing after post-op day number 5 unless told otherwise by your doctor. 3. If you think the wound looks like it is becoming infected (redness or worsening drainage) and/or you are experiencing fever, chill or worsening back pain and muscle spasms, contact the office so that we may evaluate you as soon as possible. B. Complications are uncommon, but please contact us if you have any signs or symptoms of: 1. wound infection (fever higher than 102.5 degrees F, redness, separation of wound, drainage, or increasing pain from the incision) 2. blood clots in legs (pain, swelling, redness and warmth in legs) 3. urinary tract infection (fever higher than 102.5 degrees F, burning upon urination or increased frequency of urination) 4. nerve problems (inability to walk on your toes or heels, numbness, loss of bowel or bladder control) 5. any other symptoms that concern you C. Please call the office at if you have any concerns or questions about your operation or recovery. D. No smoking! Smoking drastically decreases the chance of a solid fusion. E. Do not take any anti-inflammatory medications (Indocin, Advil, Motrin, Aspirin, Naprosyn, etc.) as these may inhibit the chance of a solid fusion. Tylenol is okay to take for pain. MANAGING PAIN AFTER SPINAL SURGERY 1. Narcotic medication is intended for short-term use and will be provided for surgical pain. Surgical pain usually lasts for a period of 4-6 weeks. Narcotic medication includes Percocet, Vicodin, Darvocet, Tylenol #3 or Lortab. 2. Longer-term pain is more appropriately treated with non-narcotic medication such as Tylenol ES. 3. Muscle spasm is not appropriately treated with narcotics. Muscle relaxers such as Soma, Flexeril or Skelaxin can be used along with Tylenol ES. 4. Remember that we all live with some "aches and pains". This is not unusual or uncommon after an injury or as we get older. a. Back pain is expected and may include muscle spasms for 4 to 6 weeks after surgery. The pain should gradually improve. If the pain worsens for no apparent reason, please contact the office. b. Intermittent leg pain may also be experienced and should not be concerned about unless it worsens for no apparent reason. If so, please contact the office. 5. We will provide appropriate medication within the normal guidelines of their prescribed use. We will also be very cautious and aware of potential abuse and extended duration of patients' medication needs. a. Pain medications are for your comfort and to assist with sleep and rest so that the tissue can heal. They are not provided in order to return to normal activity and should not be used through the day. To do so or worsening pain at night can result from ongoing tissue damage and development of tolerance to the prescribed medicine. 6. Please allow 2-3 days to process refills. Prescriptions will not be mailed but must be picked up at the office. FOLLOW UP VISIT: Keep your scheduled follow-up appointment. Any questions, please call the office at . Pending Studies at Discharge: No Stand-Alone Forms: My [facility] [address] [employer] Skilled Items Patient informed of condition?: Yes DNR: No Discharge Level of Care: Acute rehab Communicable Disease: No Discharge Prognosis: Stable Lines: None Urinary Catheter: No Medications and DC Order Prescriptions: New MAG-AL 200-200 mg/5 mL Suspension 30 ml PO Q6H PRN (Reason: dyspepsia) Qty: 0 0RF oxycodone 5 mg Tablet 5 - 10 mg PO Q4H PRNQty: 0 0RF lorazepam 0.5 mg Tablet 0.5 mg PO Q8H PRNQty: 0 0RF tramadol 50 mg Tablet 50 - 100 mg PO Q4H PRNQty: 0 0RF Continued gabapentin 600 mg tablet 600 mg PO TID PRN (Reason: back pain) Qty: 20 1RF levothyroxine 112 mcg tablet 112 mcg PO DAILYBB Discharge Orders: Discharge Order (Routine); Ordered 10/08/22 Ordered By: Perez James Admission Data Admit Date/Time: 09/24/22 23:27 Attending Provider: Perez James Admit Provider: Altaf Arevalo Primary Care Provider: Khadra Vallejo Other Providers: Munir Bedolla ; Jose Briggs ; Esteban Saucedo ; [facility] Coding Level of Care Code 95683 INP/OBS DISCH >30 MIN Diagnoses Lumbosacral disc herniation M51.27 Alcohol use with withdrawal F10.939 Chronic hyponatremia E87.1 Abnormal LFTs R79.89 Alcohol abuse F10.10 Foot drop M21.379 Leg edema R60.0 Chest pain R07.9 Chest pain type: unspecified
== END 2022-10-08 15:18 | DRG 454 ==
LOC: ED 18:32 → 2S 23:27 → SUATTDRO 23:27 → 2S 09-25 00:18 → 3W 09-28 11:06

== ENCOUNTER 2022-10-18 01:21 | Inpatient (IN) ==
[2022-10-18] MEDS ORDERED: diphenhydrAMINE 50 MG/ML VIAL IV STA (01:58)
[2022-10-18] MEDS ORDERED: DROPERIDOL 5 MG/2 ML VIAL IV STA (01:58)
--- NOTE | 2022-10-18 02:02 | Emergency Department Note ---
History of Present Illness General Chief complaint: Back Injury/Pain Time Seen by Provider: 10/18/22 01:54 History of Present Illness This 37-year-old female that had back surgery [address] Saucedo presents to the ER complaining of worsening back pain and swelling to the incisional site. Patient states her legs are too weak to walk up the steps and was concerned and called EMS. She took her pain medicine tonight. Patient supplements a severe amount of pain. Patient is well-known to this ER for fr equent visits for her pain episodes. Patient denies chest pain, dyspnea, fevers, loss of bowel bladder control. Patient is moving all extremities. Home Medications Medication Instructions Recorded Confirmed Type gabapentin 600 mg tablet 600 mg PO TID PRN back pain #20 09/03/22 10/18/22 Rx tabs levothyroxine 112 mcg tablet 112 mcg PO DAILYBB 09/25/22 10/18/22 History aluminum-magnesium hydroxide 200 30 ml PO Q6H PRN dyspepsia #0 mL 10/08/22 10/18/22 Rx mg-200 mg/5 mL oral suspension (MAG-AL) lorazepam 0.5 mg tablet 0.5 mg PO Q8H PRN #0 tabs 10/08/22 10/18/22 Rx oxycodone 5 mg tablet 5 - 10 mg PO Q4H PRN #0 tabs 10/08/22 10/18/22 Rx cyclobenzaprine 5 mg tablet 5 mg PO TID PRN MUSCLE SPASMS 10/18/22 10/18/22 History folic acid 1 mg tablet 1 mg PO DAILY 10/18/22 10/18/22 History lidocaine 5 % topical patch 1 patch transdermal DAILY PRN Pain 10/18/22 10/18/22 History nicotine 21 mg/24 hr daily 21 mg transdermal DAILY 10/18/22 10/18/22 History transdermal patch Allergies Allergy/AdvReac Type Severity Reaction Status Date / Time raspberry Allergy Severe Anaphylaxis Verified 10/18/22 01:54 adhesive Allergy Intermediate SKIN Verified 10/18/22 01:54 BLISTER, TORN OFF SKIN WHEN REMOVED Tea Leaves Allergy Severe THROAT Uncoded 10/18/22 01:54 TIGHTENS WITH LRG AMT OF TEA CONSUMED. Past Med/Surg History Medical History Anxiety Fatigue H/O ETOH abuse Hypothyroid Thyroid condition Tobacco abuse disorder Surgical History No pertinent past surgical history Family History Father Heart disease Colorectal cancer Myocardial infarction Denies family history of Ovarian cancer Prostate cancer Breast cancer Social History Smoking Status: Current every day smoker Tobacco Type: Cigarettes packs per day: 1; Cigarettes Per Day: 20; Second Hand Exposure: No; Hx Alcohol Use: No Hx Substance Use: No Preferred Language: [place] Communication Ability: Effective Visual Impairment: No Limitations Hearing Ability: Normal Physician Executive Required: No Beliefs That Will Affect Care: None marital status: Single Current Living Situation: Alone Current Living Situation Comment: home current occupational status: employed Feels Safe at Home: Yes Diet Comment: regular caffeine: Yes during the past year weight has: remained stable Dental Care, Regularly: No Physical Activity Frequency: 5-6 Times per Week Physical Activity Frequency Comment: active job Seatbelt Use: always Sunscreen Use: Yes Assistive Devices: None Review of Systems A total of 10 systems reviewed and were otherwise negative Physical Exam Vital Signs Vital Signs - 24 hr 10/18/22 01:29 10/18/22 01:36 10/18/22 03:01 Temperature 36.8 C Temperature Source Oral Pulse Rate 82 81 Pulse Rate [Apical] Respiratory Rate 18 Blood Pressure 142/42 H Blood Pressure [Right Arm] Blood Pressure Mean 75 Blood Pressure Mean [Right Arm] Pulse Oximetry 99 98 Oxygen Delivery Method Room Air Room Air Sepsis Recent Fever Within 48 Hours No Sepsis New/Unexplained Change in Mental Status N/A Sepsis Action Taken by Nursing No Action Required 10/18/22 03:17 10/18/22 05:31 Temperature Temperature Source Pulse Rate Pulse Rate [Apical] 63 76 Respiratory Rate 14 18 Blood Pressure Blood Pressure [Right Arm] 132/82 126/86 Blood Pressure Mean Blood Pressure Mean [Right Arm] 98 99 Pulse Oximetry 95 99 Oxygen Delivery Method Room Air Room Air Sepsis Recent Fever Within 48 Hours Sepsis New/Unexplained Change in Mental Status Sepsis Action Taken by Nursing VITALS: Vitals are noted on the nurse's note and reviewed by myself. Vital signs stable. GENERAL: Female, in no acute distress, nondiaphoretic, well-developed well- nourished. SKIN: The skin was without rashes, erythema, edema, or bruising. There is no tenting of the skin. Capillary reflex less than 2 seconds. HEAD: Normocephalic atraumatic. EARS: External auditory canals clear EYES: Pupils equal round and reactive to light and accommodation. Conjunctivae without injection, sclerae without icterus. Extraocular movements intact. NOSE: Patent, turbinates without inflammation or discharge. MOUTH: Mucous membranes moist. Pharynx without erythema or exudate. Uvula midline. Airway patent. Tongue does not deviate. NECK: Supple without nuchal rigidity. No lymphadenopathy. No thyromegaly. Cervical spine is nontender. No JVD. HEART: Regular rate and rhythm LUNGS: Clear to auscultation bilaterally without wheezes, rales or rhonchi. No retractions or accessory muscle use. ABDOMEN: Positive bowel sounds x 4. Normal tympanic percussion. Soft, nontender, without masses or organomegaly. Askew sign negative. No guarding or rebound tenderness. No CVA tenderness MUSCULOSKELETAL: No muscle atrophy, erythema, or edema noted. No thoracic tenderness, lumbar tenderness present with fluid collection over the incisional site without signs of cellulitis. 5 out of 5 strength throughout patient can plantarflex and dorsiflex NEURO: Patient was alert and oriented to person place and time. Normal sensation to light and sharp touch. No focal neurological deficits. Course Administered Medications Cyclobenzaprine HCl (Cyclobenzaprine Hcl 5 Mg Tab) 5 mg PO TID PRN PRN Reason: MUSCLE SPASMS Stop: 11/17/22 14:47 Last Admin: 10/18/22 18:44 Dose: 5 mg Documented By: AV Folic Acid (Folic Acid 1 Mg Tab) 1 mg PO DAILY JO Stop: 11/17/22 08:59 Last Admin: 10/18/22 09:33 Dose: 1 mg Documented By: MHN Ketorolac Tromethamine (Ketorolac Tromethamine 15 Mg/Ml Vial) 15 mg IV Q6H JO Stop: 10/23/22 18:44 Last Admin: 10/18/22 18:44 Dose: 15 mg Documented By: AV Levothyroxine Sodium (Levothyroxine Sodium 112 Mcg Tablet) 112 mcg PO DAILYBB JO Stop: 11/17/22 08:59 Last Admin: 10/18/22 09:33 Dose: 112 mcg Documented By: MELANIE Lorazepam (Lorazepam 0.5 Mg Tab) 0.5 mg PO Q8H PRN PRN Reason: Anxiety Stop: 11/17/22 14:47 Last Admin: 10/18/22 17:32 Dose: 0.5 mg Documented By: NIKA Miscellaneous (Remove Nicoderm Patch) 1 each N/A DAILY@0859 JO Stop: 11/17/22 08:58 Last Admin: 10/18/22 09:33 Dose: Not Given Documented By: MELANIE Nicotine (Nicotine 21 Mg/24 Hr Tdsy) 21 mg TD DAILY JO Stop: 11/17/22 08:59 Last Admin: 10/18/22 09:33 Dose: 21 mg Documented By: MELANIE Oxycodone HCl (Oxycodone Hcl Ir 5 Mg Tab (Immediate Release)) 5 mg PO Q4H PRN PRN Reason: pain Stop: 11/01/22 14:47 Last Admin: 10/18/22 17:32 Dose: 5 mg Documented By: NIKA Discontinued Medications Diphenhydramine HCl (Diphenhydramine 50 Mg/Ml Vial) 25 mg IV NOW STA Stop: 10/18/22 01:59 Last Admin: 10/18/22 02:31 Dose: 25 mg Documented By: ALVERTO Droperidol (Droperidol 5 Mg/2 Ml Vial) 1.25 mg IV ONE STA Stop: 10/18/22 01:59 Last Admin: 10/18/22 02:31 Dose: 1.25 mg Documented By: ALVERTO Gadobutrol (Gadobutrol 65ml Vial) 8 ml IV ONCE ONE Stop: 10/18/22 06:17 Last Admin: 10/18/22 06:16 Dose: 8 ml Documented By: ABRAHAN Acetaminophen (Ofirmev) 1,000 mg in 100 mls @ 400 mls/hr IV NOW STA Stop: 10/18/22 04:44 Last Infusion: 10/18/22 05:14 Dose: 0 mls/hr Documented By: Admin: 10/18/22 04:41 Dose: 400 mls/hr Documented By: ALVERTO Medical Decision Making Medical Records Attestation: I reviewed the patient's medical records. Home Medications Current Medication List: was personally reviewed by me Laboratory Data Attestation: I reviewed the patient's lab results. 10/18/22 02:30 10/18/22 02:30 Lab Results 10/18/22 10/18/22 10/18/22 Range/Units 02:30 02:30 02:30 WBC 7.44 (4.8-10.8) K/ul RBC 3.66 L (4.20-5.40) M/uL Hgb 9.7 L (12.0-16.0) g/dl Hct 31.7 L (37.0-47.0) % MCV 86.6 (80.0-100.0) fL MCH 26.5 (25.0-34.0) pg MCHC 30.6 L (32.0-36.0) g/dL RDW Std Deviation 61.1 H (36.4-46.3) fL RDW Coeff of Nico 19.1 H (11.5-14.5) % Plt Count 501 H (130-400) K/uL MPV 8.3 L (9.4-12.4) fL Immature Gran % (Auto) 0.4 % Neut % (Auto) 68.5 % Lymph % (Auto) 22.2 % Page % (Auto) 4.7 % Eos % (Auto) 3.5 % Baso % (Auto) 0.7 % Neut # (Auto) 5.10 (1.40-6.50) K/uL Lymph # (Auto) 1.65 (1.2-3.4) K/uL Page # (Auto) 0.35 (0.11-0.59) K/uL Eos # (Auto) 0.26 (0-0.50) K/uL Baso # (Auto) 0.05 (0-0.2) K/uL Immature Gran # (Auto) 0.03 (0.01-0.20) K/uL ESR 96 H (0-20) mm/hr Sodium 138 (136-145) mmol/L Potassium 3.7 (3.5-5.1) mmol/L Chloride 105 (98-107) mmol/L Carbon Dioxide 26 (21-32) mmol/L Anion Gap 7 (3-11) BUN 3 L (6-23) mg/dl Creatinine 0.64 (0.6-1.2) mg/dl Est Cr Clr Drug Dosing 128.9 ml/min Est GFR ( Amer) 131.2 ml/min Est GFR (Non-Af Amer) 113.2 ml/min BUN/Creatinine Ratio 4.7 L (10-20) Glucose 79 (70-99(Fasting)) mg/dl Calcium 9.6 (8.6-10.3) mg/dl Total Bilirubin 0.4 (0.2-1.0) mg/dl AST 21 (13-39) U/L ALT 20 (7-52) U/L Alkaline Phosphatase 133 H (34-104) U/L C-Reactive Protein 1.86 H (0-0.5) mg/dl Total Protein 7.5 (6.0-8.3) gm/dl Albumin 3.9 (3.4-5.0) gm/dl Globulin 3.6 (2.5-4.0) gm/dl Albumin/Globulin Ratio 1.1 (0.9-2) HCG, Qual (Negative) Urine Opiates Screen (Neg) Ur Methadone, Qual (Neg) Urine Barbiturates (Neg) Ur Phencyclidine (PCP) (Neg) U Amphetamin/Meth Scrn (Neg) MDMA (Ecstasy) Screen (Neg) U Benzodiazepines Scrn (Neg) Ur Cocaine Metabolite (Neg) U Marijuana (THC) Screen (Neg) Ethyl Alcohol mg/dL (<10.0) mg/dl SARS-CoV-2 (PCR) (Negative) 10/18/22 10/18/22 10/18/22 Range/Units 02:30 02:30 02:38 WBC (4.8-10.8) K/ul RBC (4.20-5.40) M/uL Hgb (12.0-16.0) g/dl Hct (37.0-47.0) % MCV (80.0-100.0) fL MCH (25.0-34.0) pg MCHC (32.0-36.0) g/dL RDW Std Deviation (36.4-46.3) fL RDW Coeff of Nico (11.5-14.5) % Plt Count (130-400) K/uL MPV (9.4-12.4) fL Immature Gran % (Auto) % Neut % (Auto) % Lymph % (Auto) % Page % (Auto) % Eos % (Auto) % Baso % (Auto) % Neut # (Auto) (1.40-6.50) K/uL Lymph # (Auto) (1.2-3.4) K/uL Page # (Auto) (0.11-0.59) K/uL Eos # (Auto) (0-0.50) K/uL Baso # (Auto) (0-0.2) K/uL Immature Gran # (Auto) (0.01-0.20) K/uL ESR (0-20) mm/hr Sodium (136-145) mmol/L Potassium (3.5-5.1) mmol/L Chloride (98-107) mmol/L Carbon Dioxide (21-32) mmol/L Anion Gap (3-11) BUN (6-23) mg/dl Creatinine (0.6-1.2) mg/dl Est Cr Clr Drug Dosing ml/min Est GFR ( Amer) ml/min Est GFR (Non-Af Amer) ml/min BUN/Creatinine Ratio (10-20) Glucose (70-99(Fasting)) mg/dl Calcium (8.6-10.3) mg/dl Total Bilirubin (0.2-1.0) mg/dl AST (13-39) U/L ALT (7-52) U/L Alkaline Phosphatase (34-104) U/L C-Reactive Protein (0-0.5) mg/dl Total Protein (6.0-8.3) gm/dl Albumin (3.4-5.0) gm/dl Globulin (2.5-4.0) gm/dl Albumin/Globulin Ratio (0.9-2) HCG, Qual Negative (Negative) Urine Opiates Screen Neg (Neg) Ur Methadone, Qual Neg (Neg) Urine Barbiturates Neg (Neg) Ur Phencyclidine (PCP) Neg (Neg) U Amphetamin/Meth Scrn Neg (Neg) MDMA (Ecstasy) Screen Neg (Neg) U Benzodiazepines Scrn Neg (Neg) Ur Cocaine Metabolite Neg (Neg) U Marijuana (THC) Screen Neg (Neg) Ethyl Alcohol mg/dL < 10.0 (<10.0) mg/dl SARS-CoV-2 (PCR) (Negative) 10/18/22 Range/Units 03:45 WBC (4.8-10.8) K/ul RBC (4.20-5.40) M/uL Hgb (12.0-16.0) g/dl Hct (37.0-47.0) % MCV (80.0-100.0) fL MCH (25.0-34.0) pg MCHC (32.0-36.0) g/dL RDW Std Deviation (36.4-46.3) fL RDW Coeff of Nico (11.5-14.5) % Plt Count (130-400) K/uL MPV (9.4-12.4) fL Immature Gran % (Auto) % Neut % (Auto) % Lymph % (Auto) % Page % (Auto) % Eos % (Auto) % Baso % (Auto) % Neut # (Auto) (1.40-6.50) K/uL Lymph # (Auto) (1.2-3.4) K/uL Page # (Auto) (0.11-0.59) K/uL Eos # (Auto) (0-0.50) K/uL Baso # (Auto) (0-0.2) K/uL Immature Gran # (Auto) (0.01-0.20) K/uL ESR (0-20) mm/hr Sodium (136-145) mmol/L Potassium (3.5-5.1) mmol/L Chloride (98-107) mmol/L Carbon Dioxide (21-32) mmol/L Anion Gap (3-11) BUN (6-23) mg/dl Creatinine (0.6-1.2) mg/dl Est Cr Clr Drug Dosing ml/min Est GFR ( Amer) ml/min Est GFR (Non-Af Amer) ml/min BUN/Creatinine Ratio (10-20) Glucose (70-99(Fasting)) mg/dl Calcium (8.6-10.3) mg/dl Total Bilirubin (0.2-1.0) mg/dl AST (13-39) U/L ALT (7-52) U/L Alkaline Phosphatase (34-104) U/L C-Reactive Protein (0-0.5) mg/dl Total Protein (6.0-8.3) gm/dl Albumin (3.4-5.0) gm/dl Globulin (2.5-4.0) gm/dl Albumin/Globulin Ratio (0.9-2) HCG, Qual (Negative) Urine Opiates Screen (Neg) Ur Methadone, Qual (Neg) Urine Barbiturates (Neg) Ur Phencyclidine (PCP) (Neg) U Amphetamin/Meth Scrn (Neg) MDMA (Ecstasy) Screen (Neg) U Benzodiazepines Scrn (Neg) Ur Cocaine Metabolite (Neg) U Marijuana (THC) Screen (Neg) Ethyl Alcohol mg/dL (<10.0) mg/dl SARS-CoV-2 (PCR) NEGATIVE (Negative) Imaging Data Attestation: I personally reviewed and interpreted this imaging study as follows: Radiologist's Impression: Lumbar Spine CT 10/18/22 01:59 Exam(s): CT L SPINE EXAM: CT Lumbar Spine Without Intravenous Contrast CLINICAL HISTORY: Reason for exam: Back Pain, recent back OR. TECHNIQUE: Axial computed tomography images of the lumbar spine without intravenous contrast. Automated exposure control was utilized for the study. A dose lowering technique was utilized adhering to the principles of ALARA. COMPARISON: MRI lumbar spine dated september 26 2022 FINDINGS: Vertebrae: No evidence of acutely displaced fracture or dislocation within the lumbar spine. Consider MRI if there is further concern. Patient is status post L5-S1 posterior spinal fusion hardware with intervertebral disc spacer and respective laminectomy changes. This has been intervally placed from prior study September 26, 2022. The right and left S1 screws protrude beyond the anterior sacral cortex by 9 and 8 mm, respectively. Soft tissues: Soft tissue stranding noted within the operative bed with extensive fluid overlying the paraspinal musculature with localized collection measuring 2.1 x 5.4 x 9.2 cm. This may be sterile or infected. Gallbladder and bile ducts: Cholecystectomy changes. IMPRESSION: 1. No evidence of acutely displaced fracture or dislocation within the lumbar spine. Consider MRI if there is further concern. 2. Patient is status post L5-S1 posterior spinal fusion hardware with intervertebral disc spacer and respective laminectomy changes. This has been intervally placed from prior study September 26, 2022. The right and left S1 screws protrude beyond the anterior sacral cortex by 9 and 8 mm, respectively. 3. Soft tissue stranding noted within the operative bed with extensive fluid overlying the paraspinal musculature with localized collection measuring 2.1 x 5.4 x 9.2 cm. This may be sterile or infected. If there is further concern for complication, consider MRI with postcontrast sequences. Electronically signed by: Rodrigo Wlech MD 10/18/22 04:29 AM MDM Narrative Prior records/ancillary studies reviewed. Triage Nursing notes reviewed. Additional history obtained from nursing. The patient's history was concerning for back pain. Differential diagnosis: Etiologies such as musculoskeletal, postoperative complication, drug-seeking behavior, disc herniation, fracture, aortic disease, metastatic disease, cord compression, discitis, infection, renal colic, gastrointestinal, acute exacerbation of chronic back pain, sciatica, cauda equina, as well as others were entertained. Physical findings: As above. No focal neurologic findings noted. ER treatment provided: Droperidol, Benadryl and fluids were ordered On reassessment the patient felt better. Diagnostics interpreted by me: The labs Independently Interpreted by myself revealed stable anemia per chart review. Elevated inflammatory markers. Imaging studies: CT was read by stat radiology and reviewed with no fracture per my independent interpretation MRI pending at time of admission Consultation: A consultation was placed with hospitalist. The case was discussed and diagnostics were reviewed. Case was discussed. This appears to be consistent with intractable low back pain. Patient still in severe amount of pain and requested admission. Medicine is consulted and the case was discussed. Labs and diagnostics were independent interpreted by myself. Radiology read the CAT scan. By the evaluation outlined above emergent etiologies such as fracture, aortic disease, metastatic disease, renal colic, gastrointestinal, cord compression, cauda equina, as well as others were deemed relatively unlikely. The pt informed about the findings as listed above. All questions were answered and pleased with the treatment. The chart was completed utilizing [employer] Speech voice recognition software. Grammatical errors, random word insertions, pronoun errors, and incomplete sentences are an occassional consequence of this system due to software limitations, ambient noise, and hardware issues. Any formal questions or concerns about the content, text, or information contained within the body of this dictation should be directly addressed to the physician special events assistant for clarification. Impression & Plan Intractable low back pain Discharge Plan Visit Data Chief Complaint: Back Injury/Pain ED Provider: Tree Vargas ED Midlevel Provider: Monica Caruso Discharge Problem: Intractable low back pain Patient Disposition: Admitted As Inpatient Discharge Instructions Interventions: ED Discharge Assessment Last Done: 10/18/22 08:26
[2022-10-18 02:50] LABS: Basophils # (auto) 0.05 K/uL (0-0.2); Basophils % (auto) 0.7 %; Eosinophils # (auto) 0.26 K/uL (0-0.50); Eosinophils % (auto) 3.5 %; Hematocrit (blood only) 31.7 % (37.0-47.0); Hemoglobin 9.7 g/dl (12.0-16.0); Immature Granulocytes # (auto) 0.03 K/uL (0.01-0.20); Immature Granulocytes % (auto) 0.4 %; Lymphocytes # (auto) 1.65 K/uL (1.2-3.4); Lymphocytes % (auto) 22.2 %; Mean Corpuscular Hemoglobin 26.5 pg (25.0-34.0); Mean Corpuscular Hgb Conc 30.6 g/dL (32.0-36.0); Mean Corpuscular Volume 86.6 fL (80.0-100.0); Mean Platelet Volume 8.3 fL (9.4-12.4); Monocytes # (auto) 0.35 K/uL (0.11-0.59); Monocytes % (auto) 4.7 %; Neutrophils % (auto) 68.5 %; Platelet Count 501 K/uL (130-400); RDW Coefficient of Variation 19.1 % (11.5-14.5); RDW Standard Deviation 61.1 fL (36.4-46.3); Red Blood Count 3.66 M/uL (4.20-5.40); White Blood Count 7.44 K/ul (4.8-10.8)
[2022-10-18 03:07] LABS: Albumin Globulin Ratio 1.1 (0.9-2); Albumin Level 3.9 gm/dl (3.4-5.0); BUN Creatinine Ratio 4.7 (10-20); Bilirubin,Total 0.4 mg/dl (0.2-1.0); C Reactive Protein 1.86 mg/dl (0-0.5); Calcium 9.6 mg/dl (8.6-10.3); Creatinine Clr Calc Pharmacy 128.9 ml/min; Est GFR (African American) 131.2 ml/min; Est GFR (Non-African American) 113.2 ml/min; Globulin 3.6 gm/dl (2.5-4.0); Potassium 3.7 mmol/L (3.5-5.1); Total Protein 7.5 gm/dl (6.0-8.3)
[2022-10-18 03:11] LABS: Amphetamines+Metham, Urine Neg (Neg); Barbiturates, Urine Neg (Neg); Benzodiazepine, Urine Neg (Neg); Cocaine, Urine Neg (Neg); MDMA (Ecstacy), Urine Neg (Neg); Methadone, Urine Neg (Neg); Opiate, Urine Neg (Neg); Phencyclidine, Urine Neg (Neg)
[2022-10-18 03:35] LABS: Pregnancy Test, Serum Negative (Negative)
--- NOTE | 2022-10-18 04:29 | CT Scan Report ---
Exam(s): CT L SPINE EXAM: CT Lumbar Spine Without Intravenous Contrast CLINICAL HISTORY: Reason for exam: Back Pain, recent back OR. TECHNIQUE: Axial computed tomography images of the lumbar spine without intravenous contrast. Automated exposure control was utilized for the study. A dose lowering technique was utilized adhering to the principles of ALARA. COMPARISON: MRI lumbar spine dated september 26 2022 FINDINGS: Vertebrae: No evidence of acutely displaced fracture or dislocation within the lumbar spine. Consider MRI if there is further concern. Patient is status post L5-S1 posterior spinal fusion hardware with intervertebral disc spacer and respective laminectomy changes. This has been intervally placed from prior study September 26, 2022. The right and left S1 screws protrude beyond the anterior sacral cortex by 9 and 8 mm, respectively. Soft tissues: Soft tissue stranding noted within the operative bed with extensive fluid overlying the paraspinal musculature with localized collection measuring 2.1 x 5.4 x 9.2 cm. This may be sterile or infected. Gallbladder and bile ducts: Cholecystectomy changes. IMPRESSION: 1. No evidence of acutely displaced fracture or dislocation within the lumbar spine. Consider MRI if there is further concern. 2. Patient is status post L5-S1 posterior spinal fusion hardware with intervertebral disc spacer and respective laminectomy changes. This has been intervally placed from prior study September 26, 2022. The right and left S1 screws protrude beyond the anterior sacral cortex by 9 and 8 mm, respectively. 3. Soft tissue stranding noted within the operative bed with extensive fluid overlying the paraspinal musculature with localized collection measuring 2.1 x 5.4 x 9.2 cm. This may be sterile or infected. If there is further concern for complication, consider MRI with postcontrast sequences. Electronically signed by: Rodrigo Welch MD 10/18/22 04:29 AM
[2022-10-18] MEDS ORDERED: ACETAMINOPHEN 1,000 MG/100 ML VIAL IV STA (04:30)
--- NOTE | 2022-10-18 05:38 | History & Physical Report ---
Date of Service October 18, 2022 Assessment & Plan (1) Intractable low back pain: Plan: 37 yo female with PMHx of hypothyroidism, tobacco abuse, and anxiety presents for intractable back pain. #Intractable back pain -2 weeks worsening low back pain s/p lumbar decompression and spinal fusion. -CT lumbar spine: Soft tissue stranding noted within the operative bed with extensive fluid overlying the paraspinal musculature with localized collection measuring 2.1 x 5.4 x 9.2 cm -WBC wnl. CRP elevated. -MRI lumbar spine pending to r/o epidural abscess -given droperidol, Benadryl, and acetaminophen in ED. Patient now sleeping comfortably. Will defer further pain regimen to day team. -patient will likely need SNF/rehab following discharge DVT ppx: SCDs FEN/GI: regular Code Status: full Dispo: med surg, obs History of Present Illness Chief Complaint: back pain Primary Care Provider: Khadra Vallejo MD 37 yo female with PMHx of hypothyroidism, tobacco abuse, and anxiety presents for intractable back pain. 2 weeks ago she underwent lumbar decompression bilaterally facetectomies and foraminotomies L4-L5 L5-S1 and posterior spinal fusion L5-S1. Patient asleep when seen due to droperidol given in ED. HPI per ED provider, "patient complaining of worsening back pain and swelling to the incisional site. Patient states her legs are too weak to walk up the steps and was concerned and called EMS. She took her pain medicine tonight. Patient supplements a severe amount of pain. Patient is well-known to this ER for frequent visits for her pain episodes. Patient denies chest pain, dyspnea, fevers, loss of bowel bladder control. Patient is moving all extremities." Allergies Allergy/AdvReac Type Severity Reaction Status Date / Time raspberry Allergy Severe Anaphylaxis Verified 10/18/22 01:54 adhesive Allergy Intermediate SKIN Verified 10/18/22 01:54 BLISTER, TORN OFF SKIN WHEN REMOVED Tea Leaves Allergy Severe THROAT Uncoded 10/18/22 01:54 TIGHTENS WITH LRG AMT OF TEA CONSUMED. Home Medications Medication Instructions Recorded Confirmed Type gabapentin 600 mg tablet 600 mg PO TID PRN back pain #20 09/03/22 10/18/22 Rx tabs levothyroxine 112 mcg tablet 112 mcg PO DAILYBB 09/25/22 10/18/22 History aluminum-magnesium hydroxide 200 30 ml PO Q6H PRN dyspepsia #0 mL 10/08/22 10/18/22 Rx mg-200 mg/5 mL oral suspension (MAG-AL) lorazepam 0.5 mg tablet 0.5 mg PO Q8H PRN #0 tabs 10/08/22 10/18/22 Rx oxycodone 5 mg tablet 5 - 10 mg PO Q4H PRN #0 tabs 10/08/22 10/18/22 Rx cyclobenzaprine 5 mg tablet 5 mg PO TID PRN MUSCLE SPASMS 10/18/22 10/18/22 History folic acid 1 mg tablet 1 mg PO DAILY 10/18/22 10/18/22 History lidocaine 5 % topical patch 1 patch transdermal DAILY PRN Pain 10/18/22 10/18/22 History nicotine 21 mg/24 hr daily 21 mg transdermal DAILY 10/18/22 10/18/22 History transdermal patch Past Med/Surg History Medical History Anxiety Fatigue H/O ETOH abuse Hypothyroid Thyroid condition Tobacco abuse disorder Surgical History No pertinent past surgical history Family History Father Heart disease Colorectal cancer Myocardial infarction Denies family history of Ovarian cancer Prostate cancer Breast cancer Social History Smoking Status: Current every day smoker Tobacco Type: Cigarettes packs per day: 1; Cigarettes Per Day: 20; Second Hand Exposure: No; Hx Alcohol Use: No Hx Substance Use: No Preferred Language: Ukrainian Communication Ability: Effective Visual Impairment: No Limitations Hearing Ability: Normal [employer] Required: No Beliefs That Will Affect Care: None marital status: Single Current Living Situation: Alone Current Living Situation Comment: home current occupational status: employed Feels Safe at Home: Yes Diet Comment: regular caffeine: Yes during the past year weight has: remained stable Dental Care, Regularly: No Physical Activity Frequency: 5-6 Times per Week Physical Activity Frequency Comment: active job Seatbelt Use: always Sunscreen Use: Yes Assistive Devices: None Review of Systems Review of Systems: Unobtainable due to reduced consciousness Physical Exam Physical Exam: Constitutional: In no acute distress. Sleeping comfortably. Vitals as above. HEENT: No scleral injection or discharge.Moist mucous membranes. Neck: Supple without lymphadenopathy or thyromegaly. Trachea midline. Lungs: Clear to auscultation bilaterally with good effort. Cardiac: Regular rate and rhythm.No murmurs. No extremity edema. 2+ distal peripheral pulses. Abdomen: Soft and nondistended. Per ED: MUSCULOSKELETAL: No muscle atrophy, erythema, or edema noted.No thoracic tenderness, lumbar tenderness present with fluid collection over the incisional site without signs of cellulitis. 5 out of 5 strength throughout patient can plantarflex and dorsiflex NEURO: Patient was alert and oriented to person place and time. Normal sensation to light and sharp touch. No focal neurological deficits. Results & Data Results & Data Vital Signs (Past 12 Hours) Vital Signs Temp Pulse Pulse Resp BP BP Pulse Ox 10/18/22 05:31 76 18 126/86 99 10/18/22 03:17 63 14 132/82 95 10/18/22 03:01 98 10/18/22 01:36 81 10/18/22 01:29 36.8 C 82 18 142/42 H 99 O2 Del Method 10/18/22 05:31 Room Air 10/18/22 03:17 Room Air 10/18/22 03:01 Room Air 10/18/22 01:36 10/18/22 01:29 Room Air Laboratory Results Laboratory Results WBC 7.44 K/ul (4.8-10.8) 10/18/22 02:30 RBC 3.66 M/uL (4.20-5.40) L 10/18/22 02:30 Hgb 9.7 g/dl (12.0-16.0) L 10/18/22 02:30 Hct 31.7 % (37.0-47.0) L 10/18/22 02:30 MCV 86.6 fL (80.0-100.0) 10/18/22 02:30 MCH 26.5 pg (25.0-34.0) 10/18/22 02:30 MCHC 30.6 g/dL (32.0-36.0) L 10/18/22 02:30 RDW Std Deviation 61.1 fL (36.4-46.3) H 10/18/22 02:30 RDW Coeff of Nico 19.1 % (11.5-14.5) H 10/18/22 02:30 Plt Count 501 K/uL (130-400) H 10/18/22 02:30 MPV 8.3 fL (9.4-12.4) L 10/18/22 02:30 Immature Gran % (Auto) 0.4 % 10/18/22 02:30 Neut % (Auto) 68.5 % 10/18/22 02:30 Lymph % (Auto) 22.2 % 10/18/22 02:30 Lake % (Auto) 4.7 % 10/18/22 02:30 Eos % (Auto) 3.5 % 10/18/22 02:30 Baso % (Auto) 0.7 % 10/18/22 02:30 Neut # (Auto) 5.10 K/uL (1.40-6.50) 10/18/22 02:30 Lymph # (Auto) 1.65 K/uL (1.2-3.4) 10/18/22 02:30 Lake # (Auto) 0.35 K/uL (0.11-0.59) 10/18/22 02:30 Eos # (Auto) 0.26 K/uL (0-0.50) 10/18/22 02:30 Baso # (Auto) 0.05 K/uL (0-0.2) 10/18/22 02:30 Immature Gran # (Auto) 0.03 K/uL (0.01-0.20) 10/18/22 02:30 ESR 96 mm/hr (0-20) H 10/18/22 02:30 Sodium 138 mmol/L (136-145) 10/18/22 02:30 Potassium 3.7 mmol/L (3.5-5.1) 10/18/22 02:30 Chloride 105 mmol/L (98-107) 10/18/22 02:30 Carbon Dioxide 26 mmol/L (21-32) 10/18/22 02:30 Anion Gap 7 (3-11) 10/18/22 02:30 BUN 3 mg/dl (6-23) L 10/18/22 02:30 Creatinine 0.64 mg/dl (0.6-1.2) 10/18/22 02:30 Est Cr Clr Drug Dosing 128.9 ml/min 10/18/22 02:30 Est GFR ( Amer) 131.2 ml/min 10/18/22 02:30 Est GFR (Non-Af Amer) 113.2 ml/min 10/18/22 02:30 BUN/Creatinine Ratio 4.7 (10-20) L 10/18/22 02:30 Glucose 79 mg/dl (70-99(Fasting)) 10/18/22 02:30 Calcium 9.6 mg/dl (8.6-10.3) 10/18/22 02:30 Total Bilirubin 0.4 mg/dl (0.2-1.0) 10/18/22 02:30 AST 21 U/L (13-39) 10/18/22 02:30 ALT 20 U/L (7-52) 10/18/22 02:30 Alkaline Phosphatase 133 U/L (34-104) H 10/18/22 02:30 C-Reactive Protein 1.86 mg/dl (0-0.5) H 10/18/22 02:30 Total Protein 7.5 gm/dl (6.0-8.3) 10/18/22 02:30 Albumin 3.9 gm/dl (3.4-5.0) 10/18/22 02:30 Globulin 3.6 gm/dl (2.5-4.0) 10/18/22 02:30 Albumin/Globulin Ratio 1.1 (0.9-2) 10/18/22 02:30 HCG, Qual Negative (Negative) 10/18/22 02:30 Urine Opiates Screen Neg (Neg) 10/18/22 02:38 Ur Methadone, Qual Neg (Neg) 10/18/22 02:38 Urine Barbiturates Neg (Neg) 10/18/22 02:38 Ur Phencyclidine (PCP) Neg (Neg) 10/18/22 02:38 U Amphetamin/Meth Scrn Neg (Neg) 10/18/22 02:38 MDMA (Ecstasy) Screen Neg (Neg) 10/18/22 02:38 U Benzodiazepines Scrn Neg (Neg) 10/18/22 02:38 Ur Cocaine Metabolite Neg (Neg) 10/18/22 02:38 U Marijuana (THC) Screen Neg (Neg) 10/18/22 02:38 Ethyl Alcohol mg/dL < 10.0 mg/dl (<10.0) 10/18/22 02:30 SARS-CoV-2 (PCR) NEGATIVE (Negative) 10/18/22 03:[address] 10/18/22 01:59 Exam(s): CT L SPINE EXAM: CT Lumbar Spine Without Intravenous Contrast CLINICAL HISTORY: Reason for exam: Back Pain, recent back OR. TECHNIQUE: Axial computed tomography images of the lumbar spine without intravenous contrast. Automated exposure control was utilized for the study. A dose lowering technique was utilized adhering to the principles of ALARA. COMPARISON: MRI lumbar spine dated september 26 2022 FINDINGS: Vertebrae: No evidence of acutely displaced fracture or dislocation within the lumbar spine. Consider MRI if there is further concern. Patient is status post L5-S1 posterior spinal fusion hardware with intervertebral disc spacer and respective laminectomy changes. This has been intervally placed from prior study September 26, 2022. The right and left S1 screws protrude beyond the anterior sacral cortex by 9 and 8 mm, respectively. Soft tissues: Soft tissue stranding noted within the operative bed with extensive fluid overlying the paraspinal musculature with localized collection measuring 2.1 x 5.4 x 9.2 cm. This may be sterile or infected. Gallbladder and bile ducts: Cholecystectomy changes. IMPRESSION: 1. No evidence of acutely displaced fracture or dislocation within the lumbar spine. Consider MRI if there is further concern. 2. Patient is status post L5-S1 posterior spinal fusion hardware with intervertebral disc spacer and respective laminectomy changes. This has been intervally placed from prior study September 26, 2022. The right and left S1 screws protrude beyond the anterior sacral cortex by 9 and 8 mm, respectively. 3. Soft tissue stranding noted within the operative bed with extensive fluid overlying the paraspinal musculature with localized collection measuring 2.1 x 5.4 x 9.2 cm. This may be sterile or infected. If there is further concern for complication, consider MRI with postcontrast sequences. Electronically signed by: Rodrigo Welch MD 10/18/22 04:29 AM Code Status & VTE Plan VTE Prophylaxis Plan VTE Prophylaxis will be ordered: Yes Supervising Physician Co-Signing Physician Notes Attending addendum: I have physically seen this patient, have supervised the medical residents activities, and agree with the H&P unless as otherwise noted. Assessment and Plan: Intractable low back pain status post recent surgery- Recent lumbar decompression and spinal fusion CT scan of lumbar spine notes extensive fluid overlying Paraspinal musculature with localized collection is noted We will order an MRI to rule out any more significant issue such as epidural abscess Given droperidol, Benadryl and acetaminophen by the ED Further management pending results of MRI Consult orthopedic spine surgery Dr. Saucedo Acetaminophen 650 mg by mouth every 6 hours as needed for mild pain or fever Oxycodone 5 mg by mouth every 4 hours as needed for moderate pain Oxycodone 10 mg by mouth every 4 hours as needed for severe pain Hypothyroidism- Continue levothyroxine Anxiety- Continue lorazepam Tobacco use disorder continue nicotine patch Remaining orders and notations as noted Resident Activity Tracking Resident Involvement: Resident Care Provided Care Provided: Adult Hospital Medicine
[2022-10-18] MEDS ORDERED: GADOBUTROL 65ML VIAL IV ONE (06:16)
--- NOTE | 2022-10-18 07:47 | Magnetic Resonance Report ---
MR lumbar spine wo/w con CLINICAL HISTORY: 37 years-old Female with recent back OR, ? infx/seroma. Acute low back pain in pat ient with spinal fusion surgery conducted on 10/06/2022. COMPARISON: CT lumbar spine of same day, MRI lumbar spine 09/26/2022 TECHNIQUE: Multiplanar, multi sequence MRI of the lumbar spine was performed both with and without th e use of 8 cc Gadavist FINDINGS: The kraft digester operator localizer images demonstrate no gross extraspinal abnormality. The spleen is enlarged, 14.8 cm in length. The liver measures up to approximately 19 cm in length and again demonstrates hepatic steatosis. Distended urinary bladder. Study is motion degraded. Conus medullaris terminates at the L1 level. Postoperative changes of recent L5-S1 discectomy with laminectomy, posterior interbody garth an d screw fusion. Marrow edema at the operative level is likely expected postoperative finding. Edema w ithin the posterior operative bed with subcutaneous fluid collection measuring 2.1 x 4.4 x 10.3 cm. T his is contiguous with a deeper fluid collection within the left lateral and posterior epidural space demonstrating peripheral enhancement measuring up to 3.2 x 1.7 x 4.4 cm (image 18 series 9 and image 11 series 8). This collection extends the posterior aspect of the intervertebral disc space. Motion and adjacent susceptibility artifact from the hardware limits evaluation of the operative level. Developmental incomplete bony fusion is again noted involving the posterior elements of S1. Transitio nal lumbosacral anatomy with small S1-S2 disc space again seen. Mild multilevel facet arthrosis. T12-L1: No central canal or neural foraminal stenosis. L1-L2: No central canal or neural foraminal stenosis. L2-L3: No central canal or neural foraminal stenosis. L3-L4: No central canal or neural foraminal stenosis. L4-L5: Disc desiccation with mild spondylitic spurring. Small posterior annular disc bulge with cent ral annular fissure and tiny central disc protrusion measuring up to 10 mm transversely. The central canal is patent. Mild unchanged bilateral neural foraminal narrowing. L5-S1: Interval laminectomy, posterior interbody garth and screw fusion with additional findings as le farshad as detailed above. Ill-defined air cells and bony artifact is noted within the left paracentral d istribution and left lateral recess correlating with a 1.5 x 0.8 cm radiodense structure on the CT st udy from same day. Additionally, the peripherally enhancing fluid collection at this level is noted a s above. There is effacement with severe narrowing of the left lateral recess. Severe triangular narr owing of the central canal at this level, AP dimension measuring approximately 6 mm. The neural jayson en are suboptimally visualized. IMPRESSION: 1. Postoperative changes of interval laminectomy with posterior interbody garth and screw fusion at L5- S1. No acute fracture identified. 2. Signal abnormality within the left lateral recess at the operative level correlates with hyperdens e material on the CT lumbar spine study of same day and likely represents graft/cement material effac ing the left lateral recess. 3. Probable postoperative seroma within the subcutaneous tissues measuring up to 10 cm. Additionally, there is a peripherally enhancing fluid collection at L5-S1 within the left lateral epidural tissues measuring up to 4.4 cm which may represent seroma versus abscess. 4. Discogenic degeneration at L4-L5 as above. ACT 112: Negative or not required by law. The above report was generated using voice recognition software. It may contain grammatical, syntax o r spelling errors. Electronically signed by: Burke Crenshaw M.D. 10/18/2022 7:46 AM
[2022-10-18] MEDS: NICOTINE 21 MG/24 HR TDSY TD SCH (09:33)
[2022-10-18] MEDS: FOLIC ACID 1 MG TAB PO SCH (09:33)
[2022-10-18] MEDS: LEVOTHYROXINE SODIUM 112 MCG TABLET PO SCH (09:33)
[2022-10-18] MEDS ORDERED: LIDOCAINE 5% 1 PATCH TD PRN (14:48)
[2022-10-18] MEDS ORDERED: ALUMINUM/MAGNESIUM SUSP 30 ML UDC PO PRN (14:48)
[2022-10-18] MEDS: LORazepam 0.5 MG TAB PO PRN (17:32)
[2022-10-18] MEDS: oxyCODONE HCL IR 5 MG TAB (IMMEDIATE RELEASE) PO PRN ×2 (17:32→22:11)
--- NOTE | 2022-10-18 18:43 | Communication Note ---
Date of Service: October 18, 2022 Weak, no fevers chills or sweats. Feels like she should have been at rehab a little bit longerfelt like she was doing okay but still weaksince she has been home she has been getting weaker. Legs have been feeling more and more like they are going to give outfortunately she has not had falls. Pain is basically lower back and lower abdomen. Legs were extremely swollen, but elevation has essentially fixed this. Left foot drop persists. Does feel like pain is uncontrolled. Vitals noted, in general she is awake and alert pleasant no distress. HEENT normocephalic atraumatic mucous membranes moist. Back shows fairly large area of very soft fluctuance under incisionno erythema, incision appears to be clean/dry/intact, area of fluid/fluctuance is absolutely nontender not hot. Neuro shows left foot drop that she notes is chronic. Weakness and painlarge fluid collection, but without tenderness or erythema, without leukocytosis/fever/chills/sweatsdoubt infection/abscess. Sed rate of 96 is noticeable, but the rest of her clinical picture (including inflammatory marker of CRP of 1.86) makes it overall less concerning. Watchful waiti ng/serial exams/serial labs. Pain control, PT/OT, may just need more time at rehab. She does feel she would benefit from a foot drop brace as well.
[2022-10-18] MEDS: CYCLOBENZAPRINE HCL 5 MG TAB PO PRN (18:44)
[2022-10-18] MEDS: KETOROLAC TROMETHAMINE 15 MG/ML VIAL IV SCH (18:44)
[2022-10-18] MEDS: ACETAMINOPHEN 325 MG TAB PO SCH (22:11)
[2022-10-19] MEDS: KETOROLAC TROMETHAMINE 15 MG/ML VIAL IV SCH ×4 (00:16→18:38)
[2022-10-19] MEDS: LORazepam 0.5 MG TAB PO PRN ×3 (01:55→21:06)
[2022-10-19] MEDS: GABAPENTIN 600 MG TAB PO PRN ×2 (01:55→20:22)
[2022-10-19] MEDS: LEVOTHYROXINE SODIUM 112 MCG TABLET PO SCH (05:52)
[2022-10-19 07:02] LABS: Hematocrit (blood only) 26.7 % (37.0-47.0); Hemoglobin 8.4 g/dl (12.0-16.0); Mean Corpuscular Hemoglobin 26.8 pg (25.0-34.0); Mean Corpuscular Hgb Conc 31.5 g/dL (32.0-36.0); Mean Corpuscular Volume 85.3 fL (80.0-100.0); Mean Platelet Volume 8.3 fL (9.4-12.4); Platelet Count 406 K/uL (130-400); RDW Coefficient of Variation 19.1 % (11.5-14.5); RDW Standard Deviation 59.2 fL (36.4-46.3); Red Blood Count 3.13 M/uL (4.20-5.40); White Blood Count 5.56 K/ul (4.8-10.8)
[2022-10-19 07:28] LABS: C Reactive Protein 1.34 mg/dl (0-0.5); Calcium 8.8 mg/dl (8.6-10.3); Est GFR (African American) 117.2 ml/min; Est GFR (Non-African American) 101.1 ml/min
[2022-10-19] MEDS: FOLIC ACID 1 MG TAB PO SCH (07:50)
[2022-10-19] MEDS: ACETAMINOPHEN 325 MG TAB PO SCH ×3 (07:50→20:21)
[2022-10-19] MEDS: oxyCODONE HCL IR 5 MG TAB (IMMEDIATE RELEASE) PO PRN ×2 (07:50→20:21)
[2022-10-19] MEDS: NICOTINE 21 MG/24 HR TDSY TD SCH (07:51)
[2022-10-19 07:54] LABS: Basophils # (auto) 0.05 K/uL (0-0.2); Basophils % (auto) 0.9 %; Eosinophils # (auto) 0.35 K/uL (0-0.50); Eosinophils % (auto) 6.3 %; Immature Granulocytes # (auto) 0.03 K/uL (0.01-0.20); Immature Granulocytes % (auto) 0.5 %; Lymphocytes # (auto) 2.22 K/uL (1.2-3.4); Lymphocytes % (auto) 39.9 %; Monocytes # (auto) 0.37 K/uL (0.11-0.59); Monocytes % (auto) 6.7 %; Neutrophils # (auto) 2.54 K/uL (1.40-6.50); Neutrophils % (auto) 45.7 %; RBC Morphology Unremarkable
--- NOTE | 2022-10-19 10:03 | Orthopedic Consultation ---
Date of Consultation October 19, 2022 Assessment & Plan (1) Intractable low back pain: Assessment postop seroma. Plan at this time she does have significant subcutaneous seroma. We will see how she improves over the next day. Have a low threshold to return to the OR for evacuation of seroma. If we do so would most likely be Friday. History of Present Illness Reason for Consultation: Back pain Attending Physician: Chris Cummings DO History of Present Illness This is a 37-year-old female known to me the presents with worsening back pain. She is status post lumbar decompression and fusion. She is in rehab upon return to home had struggled with worsening back pain and inability to negotiate her stairs. This morning she is comfortable. She denies any radiculopathy. She states she has been up and ambulating to the bathroom with her walker. Allergies Allergy/AdvReac Type Severity Reaction Status Date / Time raspberry Allergy Severe Anaphylaxis Verified 10/18/22 01:54 adhesive Allergy Intermediate SKIN Verified 10/18/22 01:54 BLISTER, TORN OFF SKIN WHEN REMOVED Tea Leaves Allergy Severe THROAT Uncoded 10/18/22 01:54 TIGHTENS WITH LRG AMT OF TEA CONSUMED. Home Medications Medication Instructions Recorded Confirmed Type gabapentin 600 mg tablet 600 mg PO TID PRN back pain #20 09/03/22 10/18/22 Rx tabs levothyroxine 112 mcg tablet 112 mcg PO DAILYBB 09/25/22 10/18/22 History aluminum-magnesium hydroxide 200 30 ml PO Q6H PRN dyspepsia #0 mL 10/08/22 10/18/22 Rx mg-200 mg/5 mL oral suspension (MAG-AL) lorazepam 0.5 mg tablet 0.5 mg PO Q8H PRN #0 tabs 10/08/22 10/18/22 Rx oxycodone 5 mg tablet 5 - 10 mg PO Q4H PRN #0 tabs 10/08/22 10/18/22 Rx cyclobenzaprine 5 mg tablet 5 mg PO TID PRN MUSCLE SPASMS 10/18/22 10/18/22 History folic acid 1 mg tablet 1 mg PO DAILY 10/18/22 10/18/22 History lidocaine 5 % topical patch 1 patch transdermal DAILY PRN Pain 10/18/22 10/18/22 History nicotine 21 mg/24 hr daily 21 mg transdermal DAILY 10/18/22 10/18/22 History transdermal patch Patient History Medical History Anxiety Fatigue H/O ETOH abuse Hypothyroid Thyroid condition Tobacco abuse disorder Surgical History No pertinent past surgical history Family History Father Heart disease Colorectal cancer Myocardial infarction Denies family history of Ovarian cancer Prostate cancer Breast cancer Social History Smoking Status: Current every day smoker Tobacco Type: Cigarettes packs per day: 1; Cigarettes Per Day: 20; Second Hand Exposure: No; Hx Alcohol Use: No Hx Substance Use: No Preferred Language: Fijian Communication Ability: Effective Visual Impairment: No Limitations Hearing Ability: Normal Crabber Required: No Beliefs That Will Affect Care: None marital status: Single Current Living Situation: Alone Current Living Situation Comment: home current occupational status: employed Feels Safe at Home: Yes Diet Comment: regular caffeine: Yes during the past year weight has: remained stable Dental Care, Regularly: No Physical Activity Frequency: 5-6 Times per Week Physical Activity Frequency Comment: active job Seatbelt Use: always Sunscreen Use: Yes Assistive Devices: None Physical Exam Physical Exam: On exam she exhibits 5 or 5 strength right lower extremity. Left lower extremity does have continued foot drop but it is improved from preoperative status. The incision is healing without gross erythema but there is significant appreciable seroma. Results & Data Vital Signs (Past 12 Hours) Vital Signs Temp Pulse Resp BP Pulse Ox O2 Del Method 10/19/22 07:26 36.9 C 82 18 101/63 96 Room Air 10/18/22 22:09 36.7 C 82 16 124/76 98 Room Air
--- NOTE | 2022-10-19 18:18 | Hospitalist Progress Note ---
Date of Service October 19, 2022 Assessment & Plan (1) Left lumbar radiculopathy: Plan: About 2 weeks postop, significant pain large fluid collectionhowever, seems more likely to be seroma. Main point of concern yesterday was her sed rate of 96it dropped precipitously (with no clear intervention) to 59make me wonder if the 96 was spuriousparticularly given that her CRP has been in the mid 1 range. Orthopedics input appreciated. Continue pain control. Brace and PT/OT for foot drop. Foot edema is probably due to less mobility, nothing appears consistent with DVT right now. Anticipate need for further rehab, as per orthopedics, she may end up requiring drainage of seroma. Given her young age, and the possible need for drainage of seroma we will hold off on pharmacologic DVT prophylaxis. Add SCDs. Admission and Anticipated Discharge Date Admission Date: October 18, 2022 Subjective pain reasonable foot a little more swollen ortho input appreciated Review of Systems Review of Systems: All systems reviewed & are unremarkable except as noted in HPI & below Physical Exam Physical Exam: gen aaox3 pleasant nad heent nc at mmm ongoign foot drop ~trace to 1+ edema L foot no calf edema or tenderness. CBC, basic metabolic panel, sed rate and CRP noted. Results & Data Results & Data Vital Signs (Past 12 Hours) Vital Signs Temp Pulse Resp BP Pulse Ox O2 Del Method 10/19/22 14:29 99.0 F 82 18 118/79 98 Room Air 10/19/22 07:26 98.4 F 82 18 101/63 96 Room Air PG Care Time/CCT Total # of Minutes Spent Total Time Spent with Patient: Total time spent is greater than 50% in coordination of care (as documented) at patient's floor/unit and/or counseling patient: Coding Level of Care Code 47451 SUB INP/OBS CARE 3/50MIN Diagnoses Left lumbar radiculopathy M54.16
--- NOTE | 2022-10-19 19:50 | Billing Data ---
Date of Service October 19, 2022 Coding Level of Care Code 38570 INT INP/OBS CARE
[2022-10-19] MEDS: POLYETHYLENE (MIRALAX) 17 GM PACK PO SCH (20:21)
[2022-10-20] MEDS: KETOROLAC TROMETHAMINE 15 MG/ML VIAL IV SCH ×4 (00:43→18:19)
[2022-10-20] MEDS: oxyCODONE HCL IR 5 MG TAB (IMMEDIATE RELEASE) PO PRN ×3 (03:19→20:17)
[2022-10-20] MEDS: LEVOTHYROXINE SODIUM 112 MCG TABLET PO SCH (06:07)
--- NOTE | 2022-10-20 07:58 | Orthopedic Progress Note ---
Date of Service October 20, 2022 Assessment & Plan (1) Seroma after procedure: Plan: At this point the patient presents with evidence of a postoperative seroma. I discussed situation with the patient and have suggested we perform an I&D to evacuate the seroma and likely place antibiotic beads in the wound to prevent infection. I have described the precise nature of the procedure with the patient including the risks and benefits. After thorough discussion we have elected to proceed with the procedure. We will make her n.p.o. after midnight and have this performed tomorrow. Admission and Anticipated Discharge Date Admission Date: October 18, 2022 Subjective Patient was seen bedside in room 383. She continues to have complaints of lower back pain primarily. She is not really having radicular complaints other than some mild paresthesias. She states that she return to the emergency room after she could not go up her steps to her apartment. She denies any other numbness, tingling, or paresthesias. Physical Exam Physical Exam: On exam she is alert and oriented. She is in no apparent distress. She is able to move her legs to gravity without difficulty. Her calves are supple nontender her abdomen supple and nontender. Results & Data Vital Signs (Past 12 Hours) Vital Signs Temp Pulse Resp BP Pulse Ox O2 Del Method 10/20/22 07:39 37.2 C 83 18 137/91 96 Room Air 10/19/22 20:23 36.5 C 86 16 135/89 100 Room Air
[2022-10-20] MEDS: LORazepam 0.5 MG TAB PO PRN ×2 (08:14→18:09)
[2022-10-20] MEDS: NICOTINE 21 MG/24 HR TDSY TD SCH (08:50)
[2022-10-20] MEDS: POLYETHYLENE (MIRALAX) 17 GM PACK PO SCH (08:52)
[2022-10-20] MEDS: ACETAMINOPHEN 325 MG TAB PO SCH ×3 (08:52→20:17)
[2022-10-20] MEDS: FOLIC ACID 1 MG TAB PO SCH (10:12)
--- NOTE | 2022-10-20 16:54 | Hospitalist Progress Note ---
Date of Service October 20, 2022 Assessment & Plan (1) Intractable low back pain: Plan: She is about 2 weeks postop, fairly large fluid collectionmost likely seroma, but may be causing pressure. Had a sed rate of 96 but dropped precipitously without any intervention, raising suspicion that the 96 was spurious. CRP has been in the mid 1 range. That said, given the size of the seroma, it may be creating pressure on nerves. Pain reasonably controlled. PT/OT, and bracing for foot drop. Edema predominantly mobility/venous stasis issue. Given the foot drop, and prior low range levels, repeat B12/folate/etc. in a.m. For surgery tomorrow. Anticipate need for further rehab. Given her young age and drainage of seroma tomorrow, holding off on pharmacologic DVT prophylaxis for now, has SCDs ordered. DVT ppx: SCDs FEN/GI: regular Code Status: full Dispo: probably rehab after discharge Admission and Anticipated Discharge Date Admission Date: October 18, 2022 Subjective For surgery tomorrow. Worried about having a limp for the rest of her life. Foot drop persists. We discussed many times during this hospital stay that she may have her foot drop for life, but we are trying to work on means to have this not be the case if possible. Also working on bracing to help her gait be easier even if the foot drop persists. Review of Systems Review of Systems: All systems reviewed & are unremarkable except as noted in HPI & below Physical Exam Physical Exam: General she is awake and alert pleasant no distress. HEENT normocephalic atraumatic mucous membranes moist. Breathing unlabored no accessory muscle use good effort. Skin shows no rashes no pallor or icterus. Neuro with persistent left foot drop. Gait is wide-based but stable, she has a bit of a "marching" movement to her left leg to have the foot drop clear the ground. Results & Data Results & Data Vital Signs (Past 12 Hours) Vital Signs Temp Pulse Resp BP Pulse Ox O2 Del Method 10/20/22 14:59 98.2 F 87 18 130/84 97 Room Air 10/20/22 14:24 97.5 F L 89 18 121/81 97 Room Air 10/20/22 07:39 99.0 F 83 18 137/91 96 Room Air PG Care Time/CCT Total # of Minutes Spent Total Time Spent with Patient: Total time spent is greater than 50% in coordination of care (as documented) at patient's floor/unit and/or counseling patient: Coding Level of Care Code 64286 SUB INP/OBS CARE 235MIN Diagnoses Intractable low back pain M54.59
[2022-10-20] MEDS: CYCLOBENZAPRINE HCL 5 MG TAB PO PRN (18:02)
[2022-10-21] MEDS: KETOROLAC TROMETHAMINE 15 MG/ML VIAL IV SCH ×4 (00:14→18:28)
[2022-10-21] MEDS: oxyCODONE HCL IR 5 MG TAB (IMMEDIATE RELEASE) PO PRN ×4 (01:24→20:13)
[2022-10-21] MEDS: LORazepam 0.5 MG TAB PO PRN ×2 (03:36→11:12)
[2022-10-21] MEDS: LEVOTHYROXINE SODIUM 112 MCG TABLET PO SCH (05:44)
[2022-10-21 07:15] LABS: Hematocrit (blood only) 27.7 % (37.0-47.0); Hemoglobin 8.8 g/dl (12.0-16.0); Mean Corpuscular Hemoglobin 26.5 pg (25.0-34.0); Mean Corpuscular Hgb Conc 31.8 g/dL (32.0-36.0); Mean Corpuscular Volume 83.4 fL (80.0-100.0); Mean Platelet Volume 8.3 fL (9.4-12.4); Platelet Count 410 K/uL (130-400); RDW Coefficient of Variation 18.6 % (11.5-14.5); RDW Standard Deviation 57.1 fL (36.4-46.3); Red Blood Count 3.32 M/uL (4.20-5.40); White Blood Count 4.73 K/ul (4.8-10.8)
[2022-10-21 07:39] LABS: Basophils # (auto) 0.04 K/uL (0-0.2); Basophils % (auto) 0.8 %; Eosinophils # (auto) 0.38 K/uL (0-0.50); Hypochromasia Present; Immature Granulocytes # (auto) 0.03 K/uL (0.01-0.20); Immature Granulocytes % (auto) 0.6 %; Lymphocytes # (auto) 2.05 K/uL (1.2-3.4); Lymphocytes % (auto) 43.3 %; Monocytes # (auto) 0.33 K/uL (0.11-0.59); Neutrophils % (auto) 40.3 %; Polychromasia 1+
[2022-10-21 07:55] LABS: Vitamin B12 174 pg/ml (180-914)
[2022-10-21 07:59] LABS: Vitamin D, 25 Hydrox 7.8 ng/ml (30-100)
--- NOTE | 2022-10-21 08:16 | Hospitalist Progress Note ---
Date of Service October 21, 2022 Assessment & Plan (1) Intractable low back pain: Plan: 37 yo female with PMHx of hypothyroidism, tobacco abuse, and anxiety presents for intractable back pain. Intractable back pain -2 weeks worsening low back pain s/p lumbar decompression and spinal fusion. -CT lumbar spine: Soft tissue stranding noted within the operative bed with extensive fluid overlying the paraspinal musculature with localized collection measuring 2.1 x 5.4 x 9.2 cm -WBC wnl. CRP elevated. -MRI lumbar spine showed probable postoperative seromas. One measuring 10 cm and one measuring 4.4 cm. -For I and D on 10/[address] Saucedo. -Pain well controlled with oxycodone and morphine as needed. -Will likely need SNF/rehab following discharge -ESR downtrending to 50 from previously high of 96. CRP downtrending from 1.86 to 0.55 on 10/21. Hypothyroidism -TSH elevated at 38, after surgery will consider increasing dose of home Synthroid, and have patient follow-up with PCP. Vitamin deficiencies -Vitamin B12 and vitamin D were found to be low on 10/21, will reassess after surgery and consider adding on supplementation at time of discharge. DVT ppx: SCDs FEN/GI: regular Code Status: full Dispo: med surg, obs Admission and Anticipated Discharge Date Admission Date: October 18, 2022 Supervising Physician Co-Signing Physician Notes Resident Physician Supervision Note: I independently interviewed and examined the patient and verified the koenig history and physical, reviewed labs and image studies and agree with resident findings and care plan. Subjective Patient was seen bedside this morning. She is currently waiting to have surgery on her back to remove her seroma. She states no current changes at this time, she still continues to have back pain and feeling stiff. She states that her little bit longer after walking too much yesterday. No other complaints or issues at this time. Review of Systems Review of Systems: All systems reviewed & are unremarkable except as noted in Subjective Physical Exam Constitutional: WD/WN, vitals as above Eyes: PERRL, conjunctivae normal, anicteric sclerae ENMT: external ear and nose normal, oropharynx normal Respiratory: normal respiratory effort, lungs clear to auscultation Cardiovascular: RRR, no murmur, no edema Gastrointestinal (Abdomen): normal bowel sounds, soft, nontender, no hepatosplenomegaly Musculoskeletal: Left foot drop Skin: no rashes, warm and dry Results & Data Results & Data Vital Signs (Past 12 Hours) Vital Signs Temp Pulse Resp BP Pulse Ox O2 Del Method 10/21/22 07:09 37 C 76 16 114/70 96 Room Air 10/20/22 22:40 37.0 C 83 16 103/68 98 Room Air Resident Activity Tracking Resident Involvement: Resident Care Provided Care Provided: Adult Hospital Medicine
[2022-10-21] MEDS: FOLIC ACID 1 MG TAB PO SCH (08:58)
[2022-10-21] MEDS: ACETAMINOPHEN 325 MG TAB PO SCH ×3 (08:58→21:49)
[2022-10-21] MEDS: CYCLOBENZAPRINE HCL 5 MG TAB PO PRN (08:58)
[2022-10-21] MEDS: NICOTINE 21 MG/24 HR TDSY TD SCH (08:59)
[2022-10-21] MEDS: POLYETHYLENE (MIRALAX) 17 GM PACK PO SCH (09:01)
[2022-10-21 10:00] LABS: Calcium 9.4 mg/dl (8.6-10.3); Potassium 4.5 mmol/L (3.5-5.1)
[2022-10-21 10:06] LABS: BUN Creatinine Ratio 11.1 (10-20); C Reactive Protein 0.55 mg/dl (0-0.5); Creatinine Clr Calc Pharmacy 114.6 ml/min; Est GFR (African American) 123.1 ml/min; Est GFR (Non-African American) 106.2 ml/min
[2022-10-21] MEDS ORDERED: ATROPINE SULFATE 0.1 MG/ML 10ML SYR IV PRN (13:04)
[2022-10-21] MEDS ORDERED: ePHEDrine sulfate 50 MG/ML AMP IV PRN (13:04)
[2022-10-21] MEDS ORDERED: ONDANSETRON INJ 2 MG/ML 2 ML VIAL IV PRN (13:04)
--- NOTE | 2022-10-21 13:04 | Anesthesiology Consultation ---
Date of Service October 21, 2022 Assessment & Plan Chart Review Chart Review: Acceptable Risk for Surgery and Patient NOT seen in Pre Admission Testing Consults Requested none ASA ASA3 Proposed Anesthesia Anesthesia Type: General Risk / Benefits Reviewed With: PT / POA / Parent / Guardian, Accepts Plan and Informed Consent Obtained History Surgery Operation Date: 10/21/22 07:05 Proposed Procedures p Incision and Drainage Lumbar - Esteban Saucedo, Height/Weight Height: 5 ft 10 in Weight: 80.6 kg Allergies Allergy/AdvReac Type Severity Reaction Status Date / Time raspberry Allergy Severe Anaphylaxis Verified 10/18/22 01:54 adhesive Allergy Intermediate SKIN Verified 10/18/22 01:54 BLISTER, TORN OFF SKIN WHEN REMOVED Tea Leaves Allergy Severe THROAT Uncoded 10/18/22 01:54 TIGHTENS WITH LRG AMT OF TEA CONSUMED. Medications Home Medications Medication Instructions Recorded Confirmed Last Taken gabapentin 600 mg tablet 600 mg PO TID PRN back pain #20 09/03/22 10/18/22 Unknown tabs levothyroxine 112 mcg tablet 112 mcg PO DAILYBB 09/25/22 10/18/22 10/17/22 aluminum-magnesium hydroxide 200 30 ml PO Q6H PRN dyspepsia #0 mL 10/08/22 10/18/22 Unknown mg-200 mg/5 mL oral suspension (MAG-AL) lorazepam 0.5 mg tablet 0.5 mg PO Q8H PRN #0 tabs 10/08/22 10/18/22 Unknown oxycodone 5 mg tablet 5 - 10 mg PO Q4H PRN #0 tabs 10/08/22 10/18/22 Unknown cyclobenzaprine 5 mg tablet 5 mg PO TID PRN MUSCLE SPASMS 10/18/22 10/18/22 Unknown folic acid 1 mg tablet 1 mg PO DAILY 10/18/22 10/18/22 10/17/22 lidocaine 5 % topical patch 1 patch transdermal DAILY PRN Pain 10/18/22 10/18/22 Unknown nicotine 21 mg/24 hr daily 21 mg transdermal DAILY 10/18/22 10/18/22 Unknown transdermal patch Active Medications Generic Name Dose Route Start Last Admin Trade Name Freq PRN Reason Stop Dose Admin Acetaminophen 650 mg 10/18/22 21:00 10/21/22 08:58 Acetaminophen 325 Mg Tab PO 11/17/22 20:59 650 mg TID JO Administration Cyclobenzaprine HCl 5 mg 10/18/22 14:48 10/21/22 08:58 Cyclobenzaprine Hcl 5 Mg Tab PO 11/17/22 14:47 5 mg TID PRN Administration MUSCLE SPASMS Folic Acid 1 mg 10/18/22 09:00 10/21/22 08:58 Folic Acid 1 Mg Tab PO 11/17/22 08:59 1 mg DAILY JO Administration Gabapentin 600 mg 10/18/22 14:48 10/19/22 20:22 Gabapentin 600 Mg Tab PO 11/17/22 14:47 600 mg TID PRN Administration back pain Ketorolac Tromethamine 15 mg 10/18/22 18:45 10/21/22 12:43 Ketorolac Tromethamine 15 Mg/Ml Vial IV 10/23/22 18:44 Not Given Q6H JO Levothyroxine Sodium 112 mcg 10/18/22 09:00 10/21/22 05:44 Levothyroxine Sodium 112 Mcg Tablet PO 11/17/22 08:59 112 mcg DAILYBB JO Administration Lorazepam 0.5 mg 10/18/22 14:48 10/21/22 11:12 Lorazepam 0.5 Mg Tab PO 11/17/22 14:47 0.5 mg Q8H PRN Administration Anxiety Miscellaneous 1 each 10/18/22 08:59 10/21/22 09:01 Remove Nicoderm Patch N/A 11/17/22 08:58 1 each [id number] JO Administration Nicotine 21 mg 10/18/22 09:00 10/21/22 08:59 Nicotine 21 Mg/24 Hr Tdsy TD 11/17/22 08:59 21 mg DAILY JO Administration Oxycodone HCl 5 mg 10/18/22 14:48 10/21/22 11:14 Oxycodone Hcl Ir 5 Mg Tab (Immediate Release) PO 11/01/22 14:47 5 mg Q4H PRN Administration pain Polyethylene Glycol 34 gm 10/19/22 19:00 10/21/22 09:01 Polyethylene (Miralax) 17 Gm Pack PO 11/18/22 18:59 Not Given DAILY JO NPO Date Last Intake of Fluids: 10/20/22 Time Last Intake of Fluids: 23:55 Date Last Intake of Solids: 04/02/23 Time Last Intake of Solids: 23:55 Past Medical History Medical History Anxiety Fatigue H/O ETOH abuse Hypothyroid Thyroid condition Tobacco abuse disorder Exercise / Class Metabolic Activity II 4-5 Yardwork/Stairs/Walk up hill Past Family History Family History Father Heart disease Colorectal cancer Myocardial infarction Denies family history of Ovarian cancer Prostate cancer Breast cancer Past Surgical History Surgical History No pertinent past surgical history Past Anesthesia History No Hx of Anesthesia Complications and No Family Hx of Anesthesia Complications History of PONV No Hx of PONV and No Hx of Motion Sickness Social History Smoking Status: Current every day smoker tobacco type: cigarettes Smoking cigarettes per day: 20 Hx Alcohol Use: No Alcohol type: beer alcohol intake frequency: 3 or more drinks per day Alcohol Intake Frequency Comment: Pt quit 1 month ago. Hx Substance Use: No substance use type: does not use Last Used Substance: Unknown Physical Exam Vital Signs Last Vital Signs Temp 36.5 C 10/21/22 12:39 Pulse 76 10/21/22 12:39 Resp 18 10/21/22 12:39 BP 126/87 10/21/22 12:39 Pulse Ox 100 10/21/22 12:39 O2 Del Method Room Air 10/21/22 12:39 ENMT Mouth: no dentition abnormality Thyromental Distance: > or= 3.5 Finger Breadths Mallampati Class: II Neck normal visual inspection Respiratory normal respiratory effort Auscultation: + rhonchi (mild) Cardiovascular Rate/Rhythm: regular rate and regular rhythm Psychiatric Orientation: alert Testing Laboratory Results 10/21/22 06:43 10/21/22 06:43
[2022-10-21] MEDS ORDERED: MIDAZOLAM HCL 1 MG/ML 2ML VIAL ONE (13:24)
[2022-10-21] MEDS ORDERED: fentaNYL citrate PF 100 MCG/2 ML VIAL ONE (13:24)
[2022-10-21] MEDS ORDERED: PROPOFOL IV EMULSION 10 MG/ML 20 ML VIAL IV ONE (13:27)
[2022-10-21] MEDS ORDERED: ONDANSETRON INJ 2 MG/ML 2 ML VIAL ONE (13:27)
[2022-10-21] MEDS ORDERED: DEXAMETHASONE SOD INJ 4 MG/ML VIAL ONE (13:27)
[2022-10-21] MEDS ORDERED: ROCURONIUM BROMIDE 10 MG/ML 5 ML VIAL IV ONE (13:27)
[2022-10-21] MEDS ORDERED: LIDOCAINE 2% MPF LOCAL 5 ML VIAL ONE (13:27)
--- NOTE | 2022-10-21 13:49 | History & Physical Bridge Note ---
Date of Service October 21, 2022 History & Physical Bridge Note I have examined the patient, reviewed the History & Physical and in the interval since the performance of the History & Physical I have noted the following changes of clinical significance: no changes noted
--- NOTE | 2022-10-21 13:50 | History & Physical Bridge Note ---
Date of Service October 21, 2022 History & Physical Bridge Note I have examined the patient, reviewed the History & Physical and in the interval since the performance of the History & Physical I have noted the following changes of clinical significance: Irrigation and debridement lumbar spine
[2022-10-21] MEDS ORDERED: SUGAMMADEX SODIUM 200 MG/2 ML VIAL IV ONE (14:28)
[2022-10-21] MEDS ORDERED: GENTAMICIN SULFATE 40 MG/ML 2 ML VIAL ONE (14:32)
[2022-10-21] MEDS ORDERED: VANCOMYCIN HCL 1000MG/20ML VIAL ONE (14:33)
[2022-10-21] MEDS ORDERED: ceFAZolin 330 MG/ML 1 GM VIAL ONE (14:42)
[2022-10-21] MEDS ORDERED: SODIUM CHLORIDE 0.9% PF INJ 10 ML VIAL ONE ×2 (14:42)
[2022-10-21] MEDS ORDERED: BUPIVACAINE/EPINEPHRINE 0.5% MPF 1:200,000 10 ML VIAL INFIL ONE (14:57)
--- NOTE | 2022-10-21 14:57 | Operative Report ---
Post Operative Report Pre & Post Diagnosis Operation Date: 10/21/22 07:05 Pre-Op Diagnosis: lumbar seroma Postop diagnosis: lumbar seroma I identified the patient and participated in the time-out.: Yes Procedure Operation Date: 10/21/22 07:05 Actual Procedures #1 irrigation and debridement lumbar spine to evacuate seroma in the subcuticular and subfascial planes. Surgeon Esteban Saucedo, Urban [employer] Specialist Mandie Morales Estimated Blood Loss 10 Findings Consistent with Post-Op Diagnosis Specimens Cultures of the epidural space Indications This is a 29-year-old female presents postoperatively with a large lumbar seroma. There is some concern of infection. Subsequently we chose to undergo the above-mentioned procedure. Description of Procedure Patient met with identified informed consent obtained. Patient was then taken to the operative suite underwent a patient placed in a prone position the Jacks on table top Ted frame. All bony promises well-padded eyes inspected to ensure no external pressure placed upon the. This point lumbar spine was prepped and draped in a sterile fashion. Utilizing the previous incision site sharp dissection formed fascial layer. Large seroma was evacuated. It was clear in nature. No evidence of infected noted. I then incised the fascial layer down to the epidural space another small hematoma seroma was noted and evacuated its entirety. Approximately 3 L of antibiotic saline was flushed throughout the incision. I then placed stimulant beads in the epidural space and subcutaneous tissues. 15 round drain was then placed subfascial and a 10 round drain placed subcuticular. The incision was then closed with 1 Vicryl the fascia 2-0 Vicryl subcutaneously and 4 Monocryl for final skin closure. Steri- Strip sterile dressings placed. Patient waken taken to recovery in stable condition. Please note Mandie Morales was present at the entire procedure involved the patient positioning complex portion of the surgery and final skin closure. I attest to the content of the Intraoperative Record and any orders documented therein. Any exceptions are noted below.
[2022-10-21] MEDS ORDERED: ceFAZolin 330 MG/ML 1 GM VIAL IM ONE (15:05)
[2022-10-21] MEDS ORDERED: ceFAZolin 330 MG/ML 1 GM VIAL IR ONE (15:05)
[2022-10-21] MEDS: fentaNYL citrate PF 100 MCG/2 ML VIAL IV PRN ×2 (15:16→15:27)
[2022-10-21] MEDS: GABAPENTIN 600 MG TAB PO PRN (16:03)
[2022-10-21] MEDS: MoRPHine SULFATE 2 MG/ML CARP IV PRN (16:10)
--- NOTE | 2022-10-21 16:24 | Anesthesiology Progress Note ---
Date of Service October 21, 2022 Anesthesia Post Procedure Vital Signs Vital Signs: Temp Pulse Pulse Resp BP BP Pulse Ox 10/21/22 16:00 36.4 C L 79 18 123/85 98 10/21/22 15:40 36.2 C L 74 20 122/46 L 97 10/21/22 15:35 36.2 C L 75 17 125/84 96 10/21/22 15:25 36.2 C L 74 22 123/75 98 10/21/22 15:12 36.2 C L 94 H 13 124/69 100 10/21/22 12:39 36.5 C 76 18 126/87 100 10/21/22 07:09 37 C 76 16 114/70 96 10/20/22 22:40 37.0 C 83 16 103/68 98 O2 Del Method O2 Flow Rate 10/21/22 16:00 Room Air 10/21/22 15:40 Nasal Cannula 3 10/21/22 15:35 Nasal Cannula 3 10/21/22 15:25 Nasal Cannula 3 10/21/22 15:12 Oxymask 6 10/21/22 12:39 Room Air 10/21/22 07:09 Room Air 10/20/22 22:40 Room Air Pain Intensity Back: Pain Intensity: 5 Transfer of Care Handoff Completed per policy Notes Mental Status: alert / awake / arousable Patient Amnestic to Procedure: Yes Nausea / Vomiting: adequately controlled Pain: adequately controlled Airway Patency, RR, SpO2: stable & adequate BP & HR: stable & adequate Hydration State: stable & adequate Anesthetic Complications: no major complications apparent
[2022-10-21] MEDS: ceFAZolin 2,000 MG in SYRINGE 0 ML IV SCH (18:29)
[2022-10-22] MEDS: KETOROLAC TROMETHAMINE 15 MG/ML VIAL IV SCH ×4 (00:29→18:31)
[2022-10-22] MEDS: MoRPHine SULFATE 2 MG/ML CARP IV PRN ×3 (00:30→21:34)
[2022-10-22] MEDS: ceFAZolin 2,000 MG in SYRINGE 0 ML IV SCH ×2 (00:31→08:24)
[2022-10-22] MEDS: oxyCODONE HCL IR 5 MG TAB (IMMEDIATE RELEASE) PO PRN ×4 (02:32→23:56)
[2022-10-22] MEDS: LEVOTHYROXINE SODIUM 112 MCG TABLET PO SCH (05:25)
[2022-10-22] MEDS: CYCLOBENZAPRINE HCL 5 MG TAB PO PRN ×2 (05:53→20:13)
--- NOTE | 2022-10-22 06:45 | Hospitalist Progress Note ---
Date of Service October 22, 2022 Assessment & Plan (1) Intractable low back pain: Plan: 37 yo female with PMHx of hypothyroidism, tobacco abuse, and anxiety presents for intractable back pain. Intractable back pain -2 weeks worsening low back pain s/p lumbar decompression and spinal fusion. -CT lumbar spine: Soft tissue stranding noted within the operative bed with extensive fluid overlying the paraspinal musculature with localized collection measuring 2.1 x 5.4 x 9.2 cm -WBC wnl. CRP and ESR elevated. -MRI lumbar spine 2 postoperative seromas - 1) 10 cm; 2) 4.4 cm. -Underwent I and D on 10/21 for seromas in the subcuticular and subfascial planes with Dr. Saucedo. -Pain well controlled with oxycodone and morphine as needed. -Will likely need SNF/rehab following discharge -ESR downtrending to 50 from previously high of 96. CRP downtrending from 1.86 to 0.55 on 10/21. Hypothyroidism -TSH elevated at 38. To get history on compliance and outpatient f/u. Vitamin deficiencies -Vitamin B12 and vitamin D were found to be low on 10/21, should follow up with PCP after discharge. DVT ppx: SCDs FEN/GI: regular Code Status: full Dispo: med surg, obs Admission and Anticipated Discharge Date Admission Date: October 21, 2022 Supervising Physician Co-Signing Physician Notes Resident Physician Supervision Note: I independently interviewed and examined the patient and verified the koenig history and physical, reviewed labs and image studies and agree with resident findings and care plan. Subjective Patient was seen bedside this morning. She is doing well after surgery. Still has a little bit of pain on the left when walking around but pain meds have been helping with the pain. No issues or concerns at this time Review of Systems Review of Systems: All systems reviewed & are unremarkable except as noted in Subjective Physical Exam Constitutional: WD/WN, vitals as above Eyes: PERRL, conjunctivae normal, anicteric sclerae ENMT: external ear and nose normal, oropharynx normal Respiratory: normal respiratory effort, lungs clear to auscultation Cardiovascular: RRR, no murmur, no edema Gastrointestinal (Abdomen): normal bowel sounds, soft, nontender, no hepatosplenomegaly Musculoskeletal: Left foot drop Skin: no rashes, warm and dry Results & Data Results & Data Vital Signs (Past 12 Hours) Vital Signs Temp Pulse Resp BP Pulse Ox O2 Del Method 10/22/22 03:38 36.9 C 79 18 152/73 H 99 Room Air 10/21/22 20:00 Room Air 10/21/22 23:22 36.7 C 88 18 141/88 H 98 Room Air 10/21/22 19:00 36.7 C 90 16 132/87 97 Room Air Resident Activity Tracking Resident Involvement: Resident Care Provided Care Provided: Adult Hospital Medicine
[2022-10-22 07:48] LABS: Basophils # (auto) 0.04 K/uL (0-0.2); Basophils % (auto) 0.6 %; Eosinophils # (auto) 0.01 K/uL (0-0.50); Eosinophils % (auto) 0.1 %; Hematocrit (blood only) 29.2 % (37.0-47.0); Immature Granulocytes # (auto) 0.04 K/uL (0.01-0.20); Immature Granulocytes % (auto) 0.6 %; Lymphocytes # (auto) 1.45 K/uL (1.2-3.4); Lymphocytes % (auto) 21.1 %; Mean Corpuscular Hemoglobin 25.9 pg (25.0-34.0); Mean Corpuscular Hgb Conc 30.8 g/dL (32.0-36.0); Mean Corpuscular Volume 84.1 fL (80.0-100.0); Mean Platelet Volume 8.7 fL (9.4-12.4); Monocytes # (auto) 0.24 K/uL (0.11-0.59); Monocytes % (auto) 3.5 %; Neutrophils % (auto) 74.1 %; Platelet Count 476 K/uL (130-400); RDW Coefficient of Variation 18.4 % (11.5-14.5); RDW Standard Deviation 55.9 fL (36.4-46.3); Red Blood Count 3.47 M/uL (4.20-5.40); White Blood Count 6.88 K/ul (4.8-10.8)
[2022-10-22] MEDS: ACETAMINOPHEN 325 MG TAB PO SCH ×3 (08:24→20:23)
[2022-10-22] MEDS: NICOTINE 21 MG/24 HR TDSY TD SCH (08:24)
[2022-10-22] MEDS: FOLIC ACID 1 MG TAB PO SCH (08:24)
[2022-10-22] MEDS: POLYETHYLENE (MIRALAX) 17 GM PACK PO SCH ×2 (08:25→08:30)
[2022-10-22 09:48] LABS: Albumin Level 3.8 gm/dl (3.4-5.0); Bilirubin,Total 0.3 mg/dl (0.2-1.0); Calcium 9.5 mg/dl (8.6-10.3); Potassium 4.3 mmol/L (3.5-5.1)
[2022-10-22 09:54] LABS: Albumin Globulin Ratio 1.4 (0.9-2); BUN Creatinine Ratio 11.7 (10-20); Creatinine Clr Calc Pharmacy 107.1 ml/min; Est GFR (African American) 113.5 ml/min; Est GFR (Non-African American) 97.9 ml/min; Globulin 2.8 gm/dl (2.5-4.0); Total Protein 6.6 gm/dl (6.0-8.3)
--- NOTE | 2022-10-22 11:42 | Orthopedic Progress Note ---
Date of Service October 22, 2022 Assessment & Plan (1) Seroma after procedure: Plan: At this time the cultures are still pending. Have encouraged her to ambulate as tolerated. We will try to have her discharged to rehab in the next few days. Admission and Anticipated Discharge Date Admission Date: October 21, 2022 Subjective Patient's back pain is controlled. Leg pain improved. She has been up and ambulating. Physical Exam Physical Exam: On exam she is comfortable she is in bed. She is constricted testing. Results & Data Vital Signs (Past 12 Hours) Vital Signs Temp Pulse Resp BP Pulse Ox O2 Del Method 10/22/22 07:39 37 C 84 21 129/81 99 Room Air 10/22/22 03:38 36.9 C 79 18 152/73 H 99 Room Air
[2022-10-22] MEDS ORDERED: POLYETHYLENE (MIRALAX) 17 GM PACK PO PRN (18:02)
[2022-10-22] MEDS: DOCUSATE SODIUM 100 MG CAP PO SCH (20:15)
[2022-10-23] MEDS: KETOROLAC TROMETHAMINE 15 MG/ML VIAL IV SCH ×3 (01:44→12:51)
[2022-10-23] MEDS: oxyCODONE HCL IR 5 MG TAB (IMMEDIATE RELEASE) PO PRN ×2 (06:28→19:04)
--- NOTE | 2022-10-23 06:43 | Hospitalist Progress Note ---
Date of Service October 23, 2022 Assessment & Plan (1) Intractable low back pain: Plan: 37 yo female with PMHx of hypothyroidism, tobacco abuse, and anxiety presents for intractable back pain. Intractable back pain -2 weeks worsening low back pain s/p lumbar decompression and spinal fusion. -CT lumbar spine: Soft tissue stranding noted within the operative bed with extensive fluid overlying the paraspinal musculature with localized collection measuring 2.1 x 5.4 x 9.2 cm -WBC wnl. CRP and ESR elevated. -MRI lumbar spine 2 postoperative seromas - 1) 10 cm; 2) 4.4 cm. -Underwent I and D on 10/21 for seromas in the subcuticular and subfascial planes with Dr. Saucedo. -Pain well controlled with oxycodone and morphine as needed. -Will need SNF/rehab following discharge -ESR downtrending to 50 from previously high of 96. CRP downtrending from 1.86 to 0.55 on 10/21. Hypothyroidism -TSH elevated at 38. Needs outpatient f/u. Vitamin deficiencies -Vitamin B12 and vitamin D were found to be low on 10/21, should follow up with PCP after discharge. Constipation -We will start on Colace and MiraLAX daily. DVT ppx: SCDs FEN/GI: regular Code Status: full Dispo: MedSurg, needs inpatient rehab. Admission and Anticipated Discharge Date Admission Date: October 21, 2022 Subjective Patient was seen bedside this morning. She complains of left hip pain that radiates down the back of her leg. She also states that she can straighten out her left leg fully. She also complains of decreased appetite. She also states that she had a bowel movement yesterday morning but feels constipated. She has not taken MiraLAX yet this morning. Patient also wants to increase her thyroid medication now rather than to wait. Review of Systems Review of Systems: All systems reviewed & are unremarkable except as noted in Subjective Results & Data Results & Data Vital Signs (Past 12 Hours) Vital Signs Temp Pulse Resp BP Pulse Ox O2 Del Method 10/22/22 22:54 36.7 C 82 18 134/89 99 Room Air 10/22/22 20:00 Room Air
[2022-10-23 07:39] LABS: Hematocrit (blood only) 29.8 % (37.0-47.0); Hemoglobin 9.2 g/dl (12.0-16.0); Mean Corpuscular Hemoglobin 26.1 pg (25.0-34.0); Mean Corpuscular Hgb Conc 30.9 g/dL (32.0-36.0); Mean Corpuscular Volume 84.7 fL (80.0-100.0); Mean Platelet Volume 8.5 fL (9.4-12.4); Platelet Count 474 K/uL (130-400); RDW Coefficient of Variation 18.8 % (11.5-14.5); RDW Standard Deviation 58.3 fL (36.4-46.3); Red Blood Count 3.52 M/uL (4.20-5.40); White Blood Count 6.05 K/ul (4.8-10.8)
[2022-10-23] MEDS: LORazepam 0.5 MG TAB PO PRN (07:50)
[2022-10-23] MEDS: DOCUSATE SODIUM 100 MG CAP PO SCH ×2 (07:50→21:03)
[2022-10-23] MEDS: ACETAMINOPHEN 325 MG TAB PO SCH ×3 (07:55→21:03)
[2022-10-23 08:02] LABS: Basophils # (auto) 0.07 K/uL (0-0.2); Basophils % (auto) 1.2 %; Hypochromasia Present; Immature Granulocytes # (auto) 0.04 K/uL (0.01-0.20); Immature Granulocytes % (auto) 0.7 %; Lymphocytes # (auto) 3.06 K/uL (1.2-3.4); Lymphocytes % (auto) 50.6 %; Monocytes # (auto) 0.47 K/uL (0.11-0.59); Monocytes % (auto) 7.8 %; Neutrophils # (auto) 2.11 K/uL (1.40-6.50); Neutrophils % (auto) 34.7 %; Polychromasia 1+
[2022-10-23 08:10] LABS: BUN Creatinine Ratio 11.1 (10-20); Calcium 9.7 mg/dl (8.6-10.3); Creatinine Clr Calc Pharmacy 114.6 ml/min; Est GFR (African American) 123.1 ml/min; Est GFR (Non-African American) 106.2 ml/min; Potassium 4.3 mmol/L (3.5-5.1)
[2022-10-23] MEDS: FOLIC ACID 1 MG TAB PO SCH (08:28)
[2022-10-23] MEDS: LEVOTHYROXINE SODIUM 112 MCG TABLET PO SCH (08:28)
[2022-10-23] MEDS: NICOTINE 21 MG/24 HR TDSY TD SCH (08:28)
[2022-10-23] MEDS: MoRPHine SULFATE 2 MG/ML CARP IV PRN ×2 (10:11→20:58)
[2022-10-23] MEDS: CYCLOBENZAPRINE HCL 5 MG TAB PO PRN ×2 (13:40→21:32)
--- NOTE | 2022-10-23 22:33 | Ultrasound Report ---
Exam(s): US VENOUS LEFT LOWER EXTREMITY EXAM: US Duplex Left Lower Extremity Veins CLINICAL HISTORY: Reason for exam: r/o DVT. TECHNIQUE: Real-time duplex ultrasound scan of the left lower extremity veins integrating B-mode two-dimensional vascular structure, Doppler spectral analysis, color flow Doppler imaging and compression. COMPARISON: 10/06/22 FINDINGS: Deep veins: Unremarkable. No DVT in the visualized common femoral, femoral, proximal deep femoral or popliteal veins. The veins demonstrate normal color flow, are normally compressible, with normal phasic flow and/or augmentation response. Superficial veins: Unremarkable. No thrombus in the visualized great saphenous vein. Soft tissues: No acute findings. IMPRESSION: Normal left lower extremity duplex venous ultrasound. Electronically signed by: Raina Medina M.D. 10/23/22 22:32 PM
[2022-10-24] MEDS: oxyCODONE HCL IR 5 MG TAB (IMMEDIATE RELEASE) PO PRN ×3 (05:00→21:52)
[2022-10-24] MEDS: CYCLOBENZAPRINE HCL 5 MG TAB PO PRN ×2 (05:00→21:53)
[2022-10-24] MEDS: LEVOTHYROXINE SODIUM 112 MCG TABLET PO SCH (05:01)
[2022-10-24] MEDS: LORazepam 0.5 MG TAB PO PRN ×3 (06:40→23:37)
[2022-10-24] MEDS: MoRPHine SULFATE 2 MG/ML CARP IV PRN ×3 (06:40→20:25)
--- NOTE | 2022-10-24 06:50 | Hospitalist Progress Note ---
Date of Service October 24, 2022 Assessment & Plan (1) Intractable low back pain: Plan: 37 yo female with PMHx of hypothyroidism, tobacco abuse, and anxiety presents for intractable back pain. Intractable back pain s/p I and D seroma -2 weeks worsening low back pain s/p lumbar decompression and spinal fusion. -CT lumbar spine: Soft tissue stranding noted within the operative bed with extensive fluid overlying the paraspinal musculature with localized collection measuring 2.1 x 5.4 x 9.2 cm -WBC wnl. CRP and ESR elevated. -MRI lumbar spine 2 postoperative seromas - 1) 10 cm; 2) 4.4 cm. -Underwent I and D on 10/21 for seromas in the subcuticular and subfascial planes with Dr. Saucedo. -Pain is semi-well controlled with oxycodone and morphine as needed. -Patient complaining of left back pain that extends down the back of her leg. S ensation and thermosensation intact. We will continue to monitor and see if pain improves once DAIANA drains are removed. -Will need SNF/rehab following discharge. Pending placement at this time. Hypothyroidism -TSH elevated at 38. Needs outpatient f/u. Vitamin deficiencies -Vitamin B12 and vitamin D were found to be low on 10/21. 50k D2 one done given. should be continued as outpatient. B12 1000mcg daily added. Constipation -We will start on Colace and MiraLAX daily. DVT ppx: SCDs FEN/GI: regular Code Status: full Dispo: MedSurg, needs inpatient rehab. Admission and Anticipated Discharge Date Admission Date: October 21, 2022 Supervising Physician Co-Signing Physician Notes Resident Physician Supervision Note: I independently interviewed and examined the patient and verified the koenig history and physical, reviewed labs and image studies and agree with resident findings and care plan. Subjective Patient was seen bedside this morning. Complaining of numbness and tingling in her left leg and pain from her left DAIANA insertion site down the back of her leg that comes and goes. States that it gets worse with pressure. Patient also states that she was unable to feel cold temperature on her left leg. Is able to walk to and from the bathroom with walker denies any chest pain, nausea, or vomiting Review of Systems Review of Systems: All systems reviewed & are unremarkable except as noted in Subjective Physical Exam Constitutional: WD/WN, vitals as above Eyes: PERRL, conjunctivae normal, anicteric sclerae ENMT: external ear and nose normal, oropharynx normal Respiratory: normal respiratory effort, lungs clear to auscultation Cardiovascular: RRR, no murmur, no edema Gastrointestinal (Abdomen): normal bowel sounds, soft, nontender, no hepatosplenomegaly Musculoskeletal: Extremities: strength 5/5 throughout Left foot drop Skin: no rashes, warm and dry (DAIANA drains in place) Neurologic: patellar DTR's 2+ bilat, sensation intact Peripheral Thermo sensation intact. Results & Data Results & Data Vital Signs (Past 12 Hours) Vital Signs Temp Pulse Resp BP Pulse Ox O2 Del Method 10/23/22 22:25 36.6 C 80 18 114/72 96 Room Air 10/23/22 19:49 Room Air 10/23/22 19:02 125/85 Resident Activity Tracking Resident Involvement: Resident Care Provided Care Provided: Adult Hospital Medicine
[2022-10-24 06:53] LABS: Hematocrit (blood only) 27.7 % (37.0-47.0); Hemoglobin 8.5 g/dl (12.0-16.0); Mean Corpuscular Hemoglobin 25.5 pg (25.0-34.0); Mean Corpuscular Hgb Conc 30.7 g/dL (32.0-36.0); Mean Corpuscular Volume 83.2 fL (80.0-100.0); Mean Platelet Volume 8.2 fL (9.4-12.4); Platelet Count 456 K/uL (130-400); RDW Coefficient of Variation 18.6 % (11.5-14.5); RDW Standard Deviation 56.6 fL (36.4-46.3); Red Blood Count 3.33 M/uL (4.20-5.40); White Blood Count 5.86 K/ul (4.8-10.8)
[2022-10-24 07:12] LABS: BUN Creatinine Ratio 12.1 (10-20); Calcium 9.2 mg/dl (8.6-10.3); Est GFR (African American) 129.9 ml/min; Est GFR (Non-African American) 112.1 ml/min; Potassium 4.4 mmol/L (3.5-5.1)
[2022-10-24 07:20] LABS: Basophils # (auto) 0.06 K/uL (0-0.2); Eosinophils # (auto) 0.33 K/uL (0-0.50); Eosinophils % (auto) 5.6 %; Immature Granulocytes # (auto) 0.05 K/uL (0.01-0.20); Immature Granulocytes % (auto) 0.9 %; Lymphocytes % (auto) 44.4 %; Monocytes # (auto) 0.59 K/uL (0.11-0.59); Monocytes % (auto) 10.1 %; Neutrophils # (auto) 2.23 K/uL (1.40-6.50); Polychromasia 1+
--- NOTE | 2022-10-24 08:37 | Orthopedic Progress Note ---
Date of Service October 24, 2022 Assessment & Plan (1) Seroma after procedure: Plan: At this time the cultures appear to be negative. DAIANA drains are decreasing appropriately. We will change the dressing DC drains today. She is ready for rehab as soon as a bed is available. She is good for discharge per orthopedics Admission and Anticipated Discharge Date Admission Date: October 21, 2022 Subjective Patient complaining of back pain left leg pain. She states she is ambulating. Physical Exam Physical Exam: On exam she appears comfortable in bed. She continues to demonstrate evidence of a foot drop to the left lower extremities. DAIANA drains are decreasing appropriately. Results & Data Vital Signs (Past 12 Hours) Vital Signs Temp Pulse Resp BP Pulse Ox O2 Del Method 10/24/22 08:24 36.7 C 85 20 114/73 98 Room Air 10/23/22 22:25 36.6 C 80 18 114/72 96 Room Air
[2022-10-24] MEDS: ACETAMINOPHEN 325 MG TAB PO SCH ×3 (08:58→20:24)
[2022-10-24] MEDS: FOLIC ACID 1 MG TAB PO SCH (08:58)
[2022-10-24] MEDS: DOCUSATE SODIUM 100 MG CAP PO SCH ×2 (08:58→20:26)
[2022-10-24] MEDS: GABAPENTIN 600 MG TAB PO PRN (08:58)
[2022-10-24] MEDS: NICOTINE 21 MG/24 HR TDSY TD SCH (09:01)
[2022-10-24] MEDS ORDERED: ERGOCALCIFEROL 50,000 UNITS 1250 MCG CAP PO ONE (15:15)
[2022-10-24] MEDS: CYANOCOBALAMIN (B-12) 500 MCG TABLET PO SCH (15:25)
[2022-10-25] MEDS: MoRPHine SULFATE 2 MG/ML CARP IV PRN ×4 (00:43→22:16)
[2022-10-25] MEDS: oxyCODONE HCL IR 5 MG TAB (IMMEDIATE RELEASE) PO PRN ×4 (02:12→20:52)
[2022-10-25] MEDS: LEVOTHYROXINE SODIUM 112 MCG TABLET PO SCH (06:40)
--- NOTE | 2022-10-25 08:02 | Hospitalist Progress Note ---
Date of Service October 25, 2022 Assessment & Plan (1) Intractable low back pain: Plan: 37 yo female with PMHx of hypothyroidism, tobacco abuse, and anxiety presents for intractable back pain. Intractable back pain s/p I and D seroma -2 weeks worsening low back pain s/p lumbar decompression and spinal fusion. -CT lumbar spine: Soft tissue stranding noted within the operative bed with extensive fluid overlying the paraspinal musculature with localized collection measuring 2.1 x 5.4 x 9.2 cm -WBC wnl. CRP and ESR elevated. -MRI lumbar spine 2 postoperative seromas - 1) 10 cm; 2) 4.4 cm. -Underwent I and D on 10/21 for seromas in the subcuticular and subfascial planes with Dr. Saucedo. -Pain is semi-well controlled with oxycodone and morphine as needed. -Back pain improved after drains removed from back. Still has pain from left gl uteus alysha down back of leg. Continue with physical therapy -Pending placement at this time. Hypothyroidism -TSH elevated at 38. Needs outpatient f/u. Vitamin deficiencies -Vitamin B12 and vitamin D were found to be low on 10/21. 50k D2 one done given. should be continued as outpatient. B12 1000mcg daily added. Constipation -We will start on Colace and MiraLAX daily. DVT ppx: SCDs FEN/GI: regular Code Status: full Dispo: MedSurg, needs inpatient rehab. Admission and Anticipated Discharge Date Admission Date: October 21, 2022 Supervising Physician Co-Signing Physician Notes Resident Physician Supervision Note: I independently interviewed and examined the patient and verified the koenig history and physical, reviewed labs and image studies and agree with resident findings and care plan. Subjective Patient was seen bedside this morning. She states that her back is feeling better since drains were removed yesterday. Still having pain in her left gluteus alysha that radiates down the back of her leg. She denies any other issues or concerns at this time. Review of Systems Review of Systems: All systems reviewed & are unremarkable except as noted in Subjective Physical Exam Constitutional: WD/WN, vitals as above Eyes: PERRL, conjunctivae normal, anicteric sclerae ENMT: external ear and nose normal, oropharynx normal Respiratory: normal respiratory effort, lungs clear to auscultation Cardiovascular: RRR, no murmur, no edema Gastrointestinal (Abdomen): normal bowel sounds, soft, nontender, no hepatosplenomegaly Musculoskeletal: Extremities: strength 5/5 throughout Left foot drop Skin: no rashes, warm and dry Psychiatric: A+Ox3, euthymic affect Results & Data Results & Data Vital Signs (Past 12 Hours) Vital Signs Temp Pulse Resp BP Pulse Ox O2 Del Method 10/24/22 21:02 36.7 C 85 16 122/77 98 Room Air Resident Activity Tracking Resident Involvement: Resident Care Provided Care Provided: Adult Hospital Medicine
[2022-10-25 08:25] LABS: Hematocrit (blood only) 27.4 % (37.0-47.0); Hemoglobin 8.6 g/dl (12.0-16.0); Mean Corpuscular Hemoglobin 25.7 pg (25.0-34.0); Mean Corpuscular Hgb Conc 31.4 g/dL (32.0-36.0); Mean Platelet Volume 8.2 fL (9.4-12.4); Platelet Count 493 K/uL (130-400); RDW Coefficient of Variation 18.7 % (11.5-14.5); RDW Standard Deviation 56.3 fL (36.4-46.3); Red Blood Count 3.34 M/uL (4.20-5.40); White Blood Count 6.11 K/ul (4.8-10.8)
[2022-10-25 08:39] LABS: Albumin Globulin Ratio 1.3 (0.9-2); Albumin Level 3.3 gm/dl (3.4-5.0); BUN Creatinine Ratio 13.8 (10-20); Bilirubin,Total 0.2 mg/dl (0.2-1.0); Calcium 9.3 mg/dl (8.6-10.3); Creatinine Clr Calc Pharmacy 142.2 ml/min; Est GFR (African American) 135.5 ml/min; Est GFR (Non-African American) 116.9 ml/min; Globulin 2.6 gm/dl (2.5-4.0); Potassium 4.4 mmol/L (3.5-5.1); Total Protein 5.9 gm/dl (6.0-8.3)
[2022-10-25] MEDS: DOCUSATE SODIUM 100 MG CAP PO SCH ×2 (08:52→20:53)
[2022-10-25] MEDS: FOLIC ACID 1 MG TAB PO SCH (08:52)
[2022-10-25] MEDS: CYANOCOBALAMIN (B-12) 500 MCG TABLET PO SCH (08:52)
[2022-10-25] MEDS: NICOTINE 21 MG/24 HR TDSY TD SCH (08:53)
[2022-10-25] MEDS: ACETAMINOPHEN 325 MG TAB PO SCH ×3 (08:56→20:52)
[2022-10-25 09:01] LABS: Basophils # (auto) 0.08 K/uL (0-0.2); Basophils % (auto) 1.3 %; Eosinophils # (auto) 0.35 K/uL (0-0.50); Eosinophils % (auto) 5.7 %; Immature Granulocytes # (auto) 0.08 K/uL (0.01-0.20); Immature Granulocytes % (auto) 1.3 %; Lymphocytes # (auto) 2.43 K/uL (1.2-3.4); Lymphocytes % (auto) 39.8 %; Monocytes # (auto) 0.65 K/uL (0.11-0.59); Monocytes % (auto) 10.6 %; Neutrophils # (auto) 2.52 K/uL (1.40-6.50); Neutrophils % (auto) 41.3 %
[2022-10-25] MEDS: CYCLOBENZAPRINE HCL 5 MG TAB PO PRN ×2 (12:34→20:52)
[2022-10-25] MEDS: LORazepam 0.5 MG TAB PO PRN (22:16)
[2022-10-26] MEDS: oxyCODONE HCL IR 5 MG TAB (IMMEDIATE RELEASE) PO PRN ×4 (01:00→18:31)
[2022-10-26] MEDS: LEVOTHYROXINE SODIUM 112 MCG TABLET PO SCH (05:40)
[2022-10-26 06:17] LABS: Hematocrit (blood only) 29.4 % (37.0-47.0); Hemoglobin 9.2 g/dl (12.0-16.0); Mean Corpuscular Hemoglobin 25.8 pg (25.0-34.0); Mean Corpuscular Hgb Conc 31.3 g/dL (32.0-36.0); Mean Corpuscular Volume 82.6 fL (80.0-100.0); Platelet Count 507 K/uL (130-400); RDW Coefficient of Variation 18.4 % (11.5-14.5); RDW Standard Deviation 55.7 fL (36.4-46.3); Red Blood Count 3.56 M/uL (4.20-5.40); White Blood Count 6.46 K/ul (4.8-10.8)
[2022-10-26] MEDS: CYCLOBENZAPRINE HCL 5 MG TAB PO PRN ×2 (06:29→15:57)
[2022-10-26 06:35] LABS: Albumin Globulin Ratio 1.3 (0.9-2); Albumin Level 3.7 gm/dl (3.4-5.0); BUN Creatinine Ratio 11.9 (10-20); Bilirubin,Total 0.2 mg/dl (0.2-1.0); Calcium 9.2 mg/dl (8.6-10.3); Creatinine Clr Calc Pharmacy 139.8 ml/min; Est GFR (African American) 134.8 ml/min; Est GFR (Non-African American) 116.3 ml/min; Globulin 2.8 gm/dl (2.5-4.0); Potassium 4.2 mmol/L (3.5-5.1); Total Protein 6.5 gm/dl (6.0-8.3)
--- NOTE | 2022-10-26 06:48 | Hospitalist Progress Note ---
Date of Service October 26, 2022 Assessment & Plan (1) Intractable low back pain: Plan: 37 yo female with PMHx of hypothyroidism, tobacco abuse, and anxiety presents for intractable back pain. 10/26 updateno changes to the plan below. Patient remains pending placement. Intractable back pain s/p I and D seroma -2 weeks worsening low back pain s/p lumbar decompression and spinal fusion. -CT lumbar spine: Soft tissue stranding noted within the operative bed with extensive fluid overlying the paraspinal musculature with localized collection measuring 2.1 x 5.4 x 9.2 cm -WBC wnl. CRP and ESR elevated. -MRI lumbar spine 2 postoperative seromas - 1) 10 cm; 2) 4.4 cm. -Underwent I and D on 10/21 for seromas in the subcuticular and subfascial planes with Dr. Saucedo. -Pain is semi-well controlled with oxycodone and morphine as needed. -Back pain improved after drains removed from back. Still has pain from left gluteus alysha down back of leg. Continue with physical therapy -Pending placement at this time. Hypothyroidism -TSH elevated at 38. Needs outpatient f/u. Vitamin deficiencies -Vitamin B12 and vitamin D were found to be low on 10/21. 50k D2 one done given. should be continued as outpatient. B12 1000mcg daily added. Constipation -We will start on Colace and MiraLAX daily. DVT ppx: SCDs FEN/GI: regular Code Status: full Dispo: MedSurg, needs inpatient rehab. Admission and Anticipated Discharge Date Admission Date: October 21, 2022 Supervising Physician Co-Signing Physician Notes Resident Physician Supervision Note: I independently interviewed and examined the patient and verified the koenig history and physical, reviewed labs and image studies and agree with resident findings and care plan. Subjective Patient was seen bedside this morning. States that she is doing better with her pain. She states that there is less pain but is still present. No other issues or complaints at this time. Review of Systems Review of Systems: All systems reviewed & are unremarkable except as noted in Subjective Physical Exam Constitutional: WD/WN, vitals as above Eyes: PERRL, conjunctivae normal, anicteric sclerae ENMT: external ear and nose normal, oropharynx normal Respiratory: normal respiratory effort, lungs clear to auscultation Cardiovascular: RRR, no murmur, no edema Gastrointestinal (Abdomen): normal bowel sounds, soft, nontender, no hepatosplenomegaly Musculoskeletal: Extremities: strength 5/5 throughout Left foot drop Skin: no rashes, warm and dry Psychiatric: A+Ox3, euthymic affect Results & Data Results & Data Vital Signs (Past 12 Hours) Vital Signs Temp Pulse Resp BP Pulse Ox O2 Del Method 10/25/22 20:48 36.6 C 85 16 111/72 97 Room Air Resident Activity Tracking Resident Involvement: Resident Care Provided Care Provided: Adult Hospital Medicine
[2022-10-26 06:59] LABS: Basophils # (auto) 0.08 K/uL (0-0.2); Basophils % (auto) 1.2 %; Eosinophils # (auto) 0.33 K/uL (0-0.50); Eosinophils % (auto) 5.1 %; Immature Granulocytes % (auto) 1.5 %; Lymphocytes # (auto) 2.69 K/uL (1.2-3.4); Lymphocytes % (auto) 41.6 %; Monocytes # (auto) 0.65 K/uL (0.11-0.59); Monocytes % (auto) 10.1 %; Neutrophils # (auto) 2.61 K/uL (1.40-6.50); Neutrophils % (auto) 40.5 %; RBC Morphology Unremarkable
[2022-10-26] MEDS: LORazepam 0.5 MG TAB PO PRN ×2 (08:05→15:59)
[2022-10-26] MEDS: GABAPENTIN 600 MG TAB PO PRN (08:05)
[2022-10-26] MEDS: MoRPHine SULFATE 2 MG/ML CARP IV PRN ×3 (08:05→20:55)
[2022-10-26] MEDS: FOLIC ACID 1 MG TAB PO SCH (08:06)
[2022-10-26] MEDS: CYANOCOBALAMIN (B-12) 500 MCG TABLET PO SCH (08:06)
[2022-10-26] MEDS: DOCUSATE SODIUM 100 MG CAP PO SCH ×2 (08:06→20:48)
[2022-10-26] MEDS: ACETAMINOPHEN 325 MG TAB PO SCH ×3 (08:06→20:47)
[2022-10-26] MEDS: NICOTINE 21 MG/24 HR TDSY TD SCH (08:06)
[2022-10-27] MEDS: CYCLOBENZAPRINE HCL 5 MG TAB PO PRN ×3 (04:12→23:19)
[2022-10-27] MEDS: MoRPHine SULFATE 2 MG/ML CARP IV PRN ×3 (04:13→17:37)
[2022-10-27] MEDS: LORazepam 0.5 MG TAB PO PRN (04:13)
[2022-10-27] MEDS: LEVOTHYROXINE SODIUM 112 MCG TABLET PO SCH (05:55)
[2022-10-27] MEDS: oxyCODONE HCL IR 5 MG TAB (IMMEDIATE RELEASE) PO PRN ×4 (08:12→23:16)
[2022-10-27] MEDS: NICOTINE 21 MG/24 HR TDSY TD SCH (08:13)
[2022-10-27] MEDS: CYANOCOBALAMIN (B-12) 500 MCG TABLET PO SCH (08:13)
[2022-10-27] MEDS: ACETAMINOPHEN 325 MG TAB PO SCH ×3 (08:13→20:22)
[2022-10-27] MEDS: FOLIC ACID 1 MG TAB PO SCH (08:13)
[2022-10-27] MEDS: GABAPENTIN 600 MG TAB PO PRN ×2 (08:14→17:12)
[2022-10-27] MEDS: DOCUSATE SODIUM 100 MG CAP PO SCH ×2 (08:14→20:22)
--- NOTE | 2022-10-27 10:59 | Hospitalist Progress Note ---
Date of Service October 27, 2022 Assessment & Plan (1) Intractable low back pain: Plan: 37 yo female with PMHx of hypothyroidism, tobacco abuse, and anxiety presents for intractable back pain. 10/27 updatepending placement at this time. [id number] requested by insurance for [employer]. Must be completed during regular business hours. Intractable back pain s/p I and D seroma -2 weeks worsening low back pain s/p lumbar decompression and spinal fusion. -CT lumbar spine: Soft tissue stranding noted within the operative bed with extensive fluid overlying the paraspinal musculature with localized collection measuring 2.1 x 5.4 x 9.2 cm -WBC wnl. CRP and ESR elevated. -MRI lumbar spine 2 postoperative seromas - 1) 10 cm; 2) 4.4 cm. -Underwent I and D on 10/21 for seromas in the subcuticular and subfascial planes with Dr. Saucedo. -Pain is semi-well controlled with oxycodone and morphine as needed. -Back pain improved after drains removed from back. Still has pain from left gluteus alysha down back of leg. Continue with physical therapy -Pending placement at this time. Hypothyroidism -TSH elevated at 38. Needs outpatient f/u. Vitamin deficiencies -Vitamin B12 and vitamin D were found to be low on 10/21. 50k D2 one done given. should be continued as outpatient. B12 1000mcg daily added. Constipation -We will start on Colace and MiraLAX daily. DVT ppx: SCDs FEN/GI: regular Code Status: full Dispo: MedSurg, needs inpatient rehab. Admission and Anticipated Discharge Date Admission Date: October 21, 2022 Supervising Physician Co-Signing Physician Notes I also saw the patient and confirmed koenig portions of the history and physical examination. I agree with the impression and plan as noted in the resident documentation. Upon our early afternoon exam, the patient is sleeping but awakens to voice. She has no new complaints at present. EXAM 93/54, 81, 16, 36.7, 97% room air Respirations are non-labored. Heart regular rate and rhythm DATA Hemoglobin 9.2 Potassium 4.2 BUN 7 Creatinine 0.59 IMPRESSION AND PLAN Intractable low back pain Pain control adequate at present Orthopedic consultation reviewed/appreciated Pending placement, hopefully Friday Additional per resident documentation Subjective Patient was seen bedside this morning. No issues or concerns at this time. States that straightening out her leg more has helped with the leg pain. Review of Systems Review of Systems: All systems reviewed & are unremarkable except as noted in Subjective Physical Exam Constitutional: WD/WN, vitals as above Eyes: PERRL, conjunctivae normal, anicteric sclerae Respiratory: normal respiratory effort, lungs clear to auscultation Cardiovascular: RRR, no murmur, no edema Gastrointestinal (Abdomen): normal bowel sounds, soft, nontender, no hepatos plenomegaly Musculoskeletal: Extremities: strength 5/5 throughout Left foot drop Skin: no rashes, warm and dry Psychiatric: A+Ox3, euthymic affect Results & Data Results & Data Vital Signs (Past 12 Hours) Vital Signs Temp Pulse Resp BP Pulse Ox O2 Del Method 10/27/22 07:07 36.7 C 81 16 93/54 L 97 Room Air Resident Activity Tracking Resident Involvement: Resident Care Provided Care Provided: Adult Hospital Medicine
[2022-10-28] MEDS: LEVOTHYROXINE SODIUM 112 MCG TABLET PO SCH (05:48)
--- NOTE | 2022-10-28 06:53 | Hospitalist Progress Note ---
Date of Service October 28, 2022 Assessment & Plan (1) Intractable low back pain: Plan: 37 yo female with PMHx of hypothyroidism, tobacco abuse, and anxiety presents for intractable back pain. 10/27 updatepending placement at this time. [id number] requested by insurance for [employer]. Must be completed during regular business hours. 10/28 updateinitiated [id number] process, though have not received a phone call back from insurance company at this time. Would recommend that physical therapy should work on going up and down stairs in case inpatient rehab is not approved through patient's insurance. Gave Claritin for allergies. Intractable back pain s/p I and D seroma -2 weeks worsening low back pain s/p lumbar decompression and spinal fusion. -CT lumbar spine: Soft tissue stranding noted within the operative bed with extensive fluid overlying the paraspinal musculature with localized collection measuring 2.1 x 5.4 x 9.2 cm -WBC wnl. CRP and ESR elevated. -MRI lumbar spine 2 postoperative seromas - 1) 10 cm; 2) 4.4 cm. -Underwent I and D on 10/21 for seromas in the subcuticular and subfascial planes with Dr. Saucedo. -Pain is semi-well controlled with oxycodone and morphine as needed. -Back pain improved after drains removed from back. Still has pain from left gluteus alysha down back of leg. Continue with physical therapy -Pending placement at this time. Hypothyroidism -TSH elevated at 38. Needs outpatient f/u. Vitamin deficiencies -Vitamin B12 and vitamin D were found to be low on 10/21. 50k D2 one done given. should be continued as outpatient. B12 1000mcg daily added. Constipation -We will start on Colace and MiraLAX daily. DVT ppx: SCDs FEN/GI: regular Code Status: full Dispo: MedSurg, needs inpatient rehab. Admission and Anticipated Discharge Date Admission Date: October 21, 2022 Supervising Physician Co-Signing Physician Notes I personally examined the patient and verified all koenig points of history and exam, discussed case, and agree with decision making with Dr Betancur upset about peer to peer and high likelihood of rehab denial. notes biggest barrier is 15 steps to get into house vitals noted nad heent nc at mmm breathing unlabored no accessory muscles good effort Lspine seroma - drained. PT/OT eval and treat. peer to peer pending, will ask PT to work with her on steps since that appears to be biggest barrier to going home, and insurance seems likely to deny rehab stay despite trained/experienced PT team recommendations Subjective Patient seen bedside this morning. States that she is doing well. She states that she is still having some pain to the back of her leg. She states that it hurts worse when she puts her right foot completely on the ground. When telling patient about needing a peer to peer for [employer] states that she does not think that she could make it at home given she has a staircase to get to her home that is at least 15 steps and she currently states that she is unable to even do more than 3 steps. Patient also complains of sinus congestion, pressure, and runny nose. Review of Systems Review of Systems: All systems reviewed & are unremarkable except as noted in Subjective Physical Exam Constitutional: WD/WN, vitals as above Eyes: PERRL, conjunctivae normal, anicteric sclerae Respiratory: normal respiratory effort, lungs clear to auscultation Cardiovascular: RRR, no murmur, no edema Gastrointestinal (Abdomen): normal bowel sounds, soft, nontender, no hepatosplenomegaly Musculoskeletal: Extremities: strength 5/5 throughout Left foot drop Skin: no rashes, warm and dry Psychiatric: A+Ox3, euthymic affect Results & Data Results & Data Vital Signs (Past 12 Hours) Vital Signs Temp Pulse Resp BP Pulse Ox O2 Del Method 10/27/22 21:05 37.0 C 77 16 100/62 98 Room Air Resident Activity Tracking Resident Involvement: Resident Care Provided Care Provided: Adult Hospital Medicine
[2022-10-28] MEDS: FOLIC ACID 1 MG TAB PO SCH (07:52)
[2022-10-28] MEDS: CYANOCOBALAMIN (B-12) 500 MCG TABLET PO SCH (07:52)
[2022-10-28] MEDS: NICOTINE 21 MG/24 HR TDSY TD SCH (07:53)
[2022-10-28] MEDS: DOCUSATE SODIUM 100 MG CAP PO SCH ×2 (07:53→20:03)
[2022-10-28] MEDS: ACETAMINOPHEN 325 MG TAB PO SCH ×3 (07:53→20:03)
[2022-10-28] MEDS: CYCLOBENZAPRINE HCL 5 MG TAB PO PRN ×2 (07:55→19:32)
[2022-10-28] MEDS: oxyCODONE HCL IR 5 MG TAB (IMMEDIATE RELEASE) PO PRN ×3 (07:59→19:32)
[2022-10-28] MEDS ORDERED: LORATADINE 10 MG TAB PO ONE (09:15)
[2022-10-28] MEDS: GABAPENTIN 600 MG TAB PO PRN (10:35)
[2022-10-28] MEDS: LORazepam 0.5 MG TAB PO PRN ×2 (12:12→23:11)
--- NOTE | 2022-10-28 17:07 | Billing Data ---
Date of Service October 28, 2022 Coding Level of Care Code 79405 SUB INP/OBS CARE
[2022-10-28] MEDS: MoRPHine SULFATE 2 MG/ML CARP IV PRN (22:07)
[2022-10-29] MEDS: LEVOTHYROXINE SODIUM 112 MCG TABLET PO SCH (06:04)
[2022-10-29] MEDS: CYCLOBENZAPRINE HCL 5 MG TAB PO PRN (06:47)
[2022-10-29] MEDS: oxyCODONE HCL IR 5 MG TAB (IMMEDIATE RELEASE) PO PRN ×2 (06:47→11:51)
--- NOTE | 2022-10-29 08:00 | Hospitalist Progress Note ---
Date of Service October 29, 2022 Assessment & Plan (1) Intractable low back pain: Plan: 37 yo female with PMHx of hypothyroidism, tobacco abuse, and anxiety presents for intractable back pain. 10/27 updatepending placement at this time. [id number] requested by insurance for [employer]. Must be completed during regular business hours. 10/28 updateinitiated [id number] process, though have not received a phone call back from insurance company at this time. Would recommend that physical therapy should work on going up and down stairs in case inpatient rehab is not approved through patient's insurance. Gave Claritin for allergies. Intractable back pain s/p I and D seroma -2 weeks worsening low back pain s/p lumbar decompression and spinal fusion. -CT lumbar spine: Soft tissue stranding noted within the operative bed with extensive fluid overlying the paraspinal musculature with localized collection measuring 2.1 x 5.4 x 9.2 cm -WBC wnl. CRP and ESR elevated. -MRI lumbar spine 2 postoperative seromas - 1) 10 cm; 2) 4.4 cm. -Underwent I and D on 10/21 for seromas in the subcuticular and subfascial planes with Dr. Saucedo. -Pain is semi-well controlled with oxycodone and morphine as needed. -Back pain improved after drains removed from back. Still has pain from left gluteus alysha down back of leg. Continue with physical therapy -Pending placement at this time. Hypothyroidism -TSH elevated at 38. Needs outpatient f/u. Vitamin deficiencies -Vitamin B12 and vitamin D were found to be low on 10/21. 50k D2 one done given. should be continued as outpatient. B12 1000mcg daily added. Constipation -We will start on Colace and MiraLAX daily. DVT ppx: SCDs FEN/GI: regular Code Status: full Dispo: MedSurg, needs inpatient rehab. Admission and Anticipated Discharge Date Admission Date: October 21, 2022 Results & Data Results & Data Vital Signs (Past 12 Hours) Vital Signs Temp Pulse Resp BP Pulse Ox O2 Del Method 10/28/22 21:32 36.6 C 85 16 111/72 98 Room Air
[2022-10-29] MEDS: DOCUSATE SODIUM 100 MG CAP PO SCH (08:22)
[2022-10-29] MEDS: FOLIC ACID 1 MG TAB PO SCH (08:24)
[2022-10-29] MEDS: CYANOCOBALAMIN (B-12) 500 MCG TABLET PO SCH (08:25)
[2022-10-29] MEDS: ACETAMINOPHEN 325 MG TAB PO SCH ×2 (08:26→13:53)
[2022-10-29] MEDS: NICOTINE 21 MG/24 HR TDSY TD SCH (08:29)
[2022-10-29] MEDS: MoRPHine SULFATE 2 MG/ML CARP IV PRN ×2 (08:56→13:53)
[2022-10-29] MEDS: GABAPENTIN 600 MG TAB PO PRN (12:31)
--- NOTE | 2022-10-29 13:13 | Discharge Summary ---
Date of Service October 29, 2022 Admission HPI Per Admitting Provider 37 yo female with PMHx of hypothyroidism, tobacco abuse, and anxiety presents for intractable back pain. 2 weeks ago she underwent lumbar decompression bilaterally facetectomies and foraminotomies L4-L5 L5-S1 and posterior spinal fusion L5-S1. Patient asleep when seen due to droperidol given in ED. HPI per ED provider, "patient complaining of worsening back pain and swelling to the incisional site. Patient states her legs are too weak to walk up the steps and was concerned and called EMS. She took her pain medicine tonight. Patient supplements a severe amount of pain. Patient is well-known to this ER for suri quent visits for her pain episodes. Patient denies chest pain, dyspnea, fevers, loss of bowel bladder control. Patient is moving all extremities." Admission Exam Per Admitting Provider Constitutional: In no acute distress. Sleeping comfortably. Vitals as above. HEENT: No scleral injection or discharge.Moist mucous membranes. Neck: Supple without lymphadenopathy or thyromegaly. Trachea midline. Lungs: Clear to auscultation bilaterally with good effort. Cardiac: Regular rate and rhythm.No murmurs. No extremity edema. 2+ distal peripheral pulses. Abdomen: Soft and nondistended. Per ED: MUSCULOSKELETAL: No muscle atrophy, erythema, or edema noted.No thoracic tenderness, lumbar tenderness present with fluid collection over the incisional site without signs of cellulitis. 5 out of 5 strength throughout patient can plantarflex and dorsiflex NEURO: Patient was alert and oriented to person place and time. Normal sensation to light and sharp touch. No focal neurological deficits. Principal Diagnosis Seroma, back pain, radicular pain, weakness. Discharge Exam Constitutional: WD/WN, vitals as above Eyes: PERRL, conjunctivae normal, anicteric sclerae Respiratory: normal respiratory effort, lungs clear to auscultation Cardiovascular: RRR, no murmur, no edema Gastrointestinal (Abdomen): normal bowel sounds, soft, nontender, no hepatosplenomegaly Musculoskeletal: Extremities: strength 5/5 throughout Left foot drop Skin: no rashes, warm and dry Psychiatric: A+Ox3, euthymic affect Discharge Data Allergies Allergy/AdvReac Type Severity Reaction Status Date / Time raspberry Allergy Severe Anaphylaxis Verified 10/18/22 01:54 adhesive Allergy Intermediate SKIN Verified 10/18/22 01:54 BLISTER, TORN OFF SKIN WHEN REMOVED Tea Leaves Allergy Severe THROAT Uncoded 10/18/22 01:54 TIGHTENS WITH LRG AMT OF TEA CONSUMED. Consultations 10/18/22 04:30 ED Decision to Admit Stat 10/18/22 14:58 Consult Orthopedic Surgery Routine Procedures Performed Operation Date: 10/21/22 07:05 Actual Procedures p Incision and Drainage Lumbar(Not Applicable) - Esteban Saucedo DO Ordered Studies 10/18/22 01:59 CT lumbar spine wo con Stat 10/18/22 04:51 MR lumbar spine wo/w con Stat 10/23/22 21:14 US venous doppler LE LT Urgent Hospital Course (1) Seroma after procedure: (2) Intractable low back pain: (3) Foot drop: (4) Hypothyroid: Plan 37 yo female with PMHx of hypothyroidism, tobacco abuse, and anxiety presents for intractable back pain. Intractable back pain s/p I and D seroma -2 weeks worsening low back pain s/p lumbar decompression and spinal fusion. -CT lumbar spine: Soft tissue stranding noted within the operative bed with extensive fluid overlying the paraspinal musculature with localized collection measuring 2.1 x 5.4 x 9.2 cm -WBC wnl. CRP and ESR elevated. -MRI lumbar spine 2 postoperative seromas - 1) 10 cm; 2) 4.4 cm. -Underwent I and D on 10/21 for seromas in the subcuticular and subfascial planes with Dr. Saucedo. -Pain is semi-well controlled with oxycodone and morphine as needed post surgery. -Back pain improved after drains removed from back. Still has pain from left gluteus alysha down back of leg. Continue with physical therapy Hypothyroidism -TSH elevated at 38. Needs outpatient f/u. Vitamin deficiencies -Vitamin B12 and vitamin D were found to be low on 10/21. 50k D2 one done given. should be continued as outpatient. B12 1000mcg daily added. Prescription sent t o pharmacy. Constipation -We will start on Colace and MiraLAX daily. Total Time Total Time Spent Total Time Spent (In Minutes): Less than 30 Discharge Plan Discharge Items Patient Disposition: Transfer Inpatient Rehab Fac Reason For Visit: BACK PAIN Discharge Diagnosis: Intractable back pain status post I&D seroma Activity: Per Instructions section Non-emergency contact: Primary Care Provider Call non-emergency contact if: you have any medication questions, your pain is unusual for you and your temperature is above 101.5 Follow-up/Referrals: Khadra Vallejo MD [Primary Care Provider] - Diet: Regular Addtl Attending Provider Instructions: 37 yo female with PMHx of hypothyroidism, tobacco abuse, and anxiety presents for intractable back pain. Intractable back pain s/p I and D seroma -2 weeks worsening low back pain s/p lumbar decompression and spinal fusion. -CT lumbar spine: Soft tissue stranding noted within the operative bed with extensive fluid overlying the paraspinal musculature with localized collection measuring 2.1 x 5.4 x 9.2 cm -WBC wnl. CRP and ESR elevated. -MRI lumbar spine 2 postoperative seromas - 1) 10 cm; 2) 4.4 cm. -Underwent I and D on 10/21 for seromas in the subcuticular and subfascial planes with Dr. Saucedo. -Pain is semi-well controlled with oxycodone and morphine as needed post surgery. -Back pain improved after drains removed from back. Still has pain from left gluteus alysha down back of leg. Continue with physical therapy Hypothyroidism -TSH elevated at 38. Needs outpatient f/u. Vitamin deficiencies -Vitamin B12 and vitamin D were found to be low on 10/21. 50k D2 one done given. should be continued as outpatient. B12 1000mcg daily added. Prescription sent to pharmacy. Constipation -We will start on Colace and MiraLAX daily. Addtl Industrial Specialist Provider Instructions: ACTIVITY RECOMMENDATIONS: SELF CARE INSTRUCTIONS AFTER THORACIC/LUMBAR FUSIONS 1. You may walk to your tolerance. It is good exercise for your legs and back. Expect some back and intermittent leg aches and pains. 2. You may perform "counter-top" level activities (make a sandwich, sangeetha with a project, etc.). 3. No bending or lifting of more than 10 pounds or back twisting of any nature (roll like a log when turning in bed). 4. You may ride in a car for 20-30 minutes at a time. No driving until after your first visit with your doctor. 5. Frequent changes of position and restricting sitting to 30 minutes at a time will help limit the amount of back spasms and stiffness you may experience. 6. You may discontinue the use of ambulatory aids (cane, crutches, etc.) once your strength and confidence allow. 7. You may brick pointer the shower and let water strike your incision when you arrive home at least once daily. Do not take a tub bath, sit in a hot tub or go into a swimming pool until after your first recheck in the office. SPECIAL CARE INSTRUCTIONS: VERY IMPORTANT TO READ AND REVIEW A. Your surgical incision has been closed with a cosmetic suture under the skin that will dissolve in about 6 weeks. In 14 days, you can use a pair of clean scissors and cut the suture that is left outside of the skin at the ends of your incision. 1. The small skin tapes can be removed 7 days after surgery if they have not fallen off by that point. 2. You may keep the wound open to air as much as possible to promote healing after post-op day number 5 unless told otherwise by your doctor. 3. If you think the wound looks like it is becoming infected (redness or worsening drainage) and/or you are experiencing fever, chill or worsening back pain and muscle spasms, contact the office so that we may evaluate you as soon as possible. B. Complications are uncommon, but please contact us if you have any signs or symptoms of: 1. wound infection (fever higher than 102.5 degrees F, redness, separation of wound, drainage, or increasing pain from the incision) 2. blood clots in legs (pain, swelling, redness and warmth in legs) 3. urinary tract infection (fever higher than 102.5 degrees F, burning upon urination or increased frequency of urination) 4. nerve problems (inability to walk on your toes or heels, numbness, loss of bowel or bladder control) 5. any other symptoms that concern you C. Please call the office at if you have any concerns or questions about your operation or recovery. D. No smoking! Smoking drastically decreases the chance of a solid fusion. E. Do not take any anti-inflammatory medications (Indocin, Advil, Motrin, Aspirin, Naprosyn, etc.) as these may inhibit the chance of a solid fusion. Tylenol is okay to take for pain. MANAGING PAIN AFTER SPINAL SURGERY 1. Narcotic medication is intended for short-term use and will be provided for surgical pain. Surgical pain usually lasts for a period of 4-6 weeks. Narcotic medication includes Percocet, Vicodin, Darvocet, Tylenol #3 or Lortab. 2. Longer-term pain is more appropriately treated with non-narcotic medication such as Tylenol ES. 3. Muscle spasm is not appropriately treated with narcotics. Muscle relaxers such as Soma, Flexeril or Skelaxin can be used along with Tylenol ES. 4. Remember that we all live with some "aches and pains". This is not unusual or uncommon after an injury or as we get older. a. Back pain is expected and may include muscle spasms for 4 to 6 weeks after surgery. The pain should gradually improve. If the pain worsens for no apparent reason, please contact the office. b. Intermittent leg pain may also be experienced and should not be concerned about unless it worsens for no apparent reason. If so, please contact the office. 5. We will provide appropriate medication within the normal guidelines of their prescribed use. We will also be very cautious and aware of potential abuse and extended duration of patients' medication needs. a. Pain medications are for your comfort and to assist with sleep and rest so that the tissue can heal. They are not provided in order to return to normal activity and should not be used through the day. To do so or worsening pain at night can result from ongoing tissue damage and development of tolerance to the prescribed medicine. 6. Please allow 2-3 days to process refills. Prescriptions will not be mailed but must be picked up at the office. FOLLOW UP VISIT: Keep your scheduled follow-up appointment. Any questions, please call the office at . Pending Studies at Discharge: No Stand-Alone Forms: My [facility] Skilled Items Patient informed of condition?: Yes DNR: No Discharge Level of Care: Acute rehab Communicable Disease: No Discharge Prognosis: Improving Lines: None Urinary Catheter: No Medications and DC Order Prescriptions: New cyanocobalamin (vitamin B-12) 500 mcg Tablet 1,000 mcg PO QAM 30 Days Qty: 60 0RF Continued gabapentin 600 mg tablet 600 mg PO TID PRN (Reason: back pain) Qty: 20 1RF levothyroxine 112 mcg tablet 112 mcg PO DAILYBB lorazepam 0.5 mg Tablet 0.5 mg PO Q8H PRNQty: 0 0RF oxycodone 5 mg Tablet 5 - 10 mg PO Q4H PRNQty: 0 0RF MAG-AL 200-200 mg/5 mL Suspension 30 ml PO Q6H PRN (Reason: dyspepsia) Qty: 0 0RF lidocaine 5 % adhesive patch,medicated 1 patch transdermal DAILY PRN (Reason: Pain) nicotine 21 mg/24 hr patch 24 hour 21 mg transdermal DAILY Rx Instructions: HAS ORDER FOR DECREASED DOSES AT NEEDED. folic acid 1 mg tablet 1 mg PO DAILY cyclobenzaprine 5 mg tablet 5 mg PO TID PRN (Reason: MUSCLE SPASMS) Discharge Orders: Discharge Order (Routine); Ordered 10/29/22 Ordered By: Trey Betancur Admission Data Admit Date/Time: 10/21/22 08:07 Attending Provider: Chris Cummings Admit Provider: Garrison Shannon Primary Care Provider: Khadra Vallejo Other Providers: Chris Cummings ; Edgar Hopkins ; Esteban Saucedo ; [facility] ; [facility], ; Na Islas Other Interventions: Discharge Summary Assessment (RN) Last Done: 10/29/22 14:53 Supervising Physician Co-Signing Physician Notes I personally examined the patient and verified all koenig points of history and exam, discussed case, and agree with decision making with Dr Pipe Betancur succeeded with peer to [facility] week of rehab approved. Discussed with orthopedic surgery about the swelling around the incisionshe did note that he put antibiotic beads in. vitals noted nad heent nc at mmm breathing unlabored no accessory muscles good effort Lspine seroma - drained. PT/OT eval and treat. peer to peer approved, stable for transfer to rehab. Outpatient orthopedics follow-up. Otherwise as above. Resident Activity Tracking Resident Involvement: Resident Care Provided Care Provided: Adult Hospital Medicine
[2022-10-29] MEDS: LORazepam 0.5 MG TAB PO PRN (15:39)
--- NOTE | 2022-10-29 17:11 | Billing Data ---
Date of Service October 29, 2022 Coding Level of Care Code 18769 IN/OBS DISCH 30 MIN/LESS
== END 2022-10-29 16:29 | DRG 908 ==
LOC: ED 01:21 → 3N 01:21 → SUATTDRO 05:32 → 3N 08:26 → SUATTDRO 10-21 08:07